=== PATIENT | male | born 1940 | race Caucasian/White ===

== ENCOUNTER 2022-10-09 10:36 | Emergency (ER) | payer MEDICARE, SELFPAY ==
[2022-10-09 11:03] VITALS: BP 124/79; PULSE 50; RESP 20; TEMP 36.4; O2SAT 98; BMI 26.1
--- NOTE | 2022-10-09 14:00 | ED.GENADULT ---
HPI - General Adult General Chief complaint: Abdominal Pain Stated complaint: Left side pain Time Seen by Provider: 10/09/22 13:48 History of Present Illness HPI narrative: This 82-year-old male comes in reporting a brief episode of left chest discomfort that occurred about an hour prior to arrival. He was at an exercise class which she typically goes to every day. Toward the end of this event wild doing something that was not very strenuous he began to have a sharp pain in his left chest. This lasted for a minute or 2 and then resolved. He then felt some mild discomfort in his upper abdomen. He did not have any nausea, vomiting, lightheadedness, shortness of breath, or diaphoresis. The pain was very brief lasting just a few minutes. He states that he has good exercise tolerance without any symptoms. Related Data Home Medications Medication Instructions Recorded Confirmed brimonidine 0.2 % eye drops drp 10/09/22 hydrochlorothiazide 25 mg tablet mg 10/09/22 latanoprost 0.005 % eye drops drp 10/09/22 lisinopril 20 mg tablet mg 10/09/22 omeprazole 20 mg capsule,delayed mg 10/09/22 release timolol maleate 0.5 % eye drops drp 10/09/22 Allergies Allergy/AdvReac Type Severity Reaction Status Date / Time No Known Drug Allergies Allergy Verified 10/09/22 11:10 Review of Systems Status of ROS: Reports: 10 or more systems reviewed and unremarkable except as noted in History and below Narrative: Constitutional: No fevers, no weight gain or loss. Eyes: No discharge. No vision changes. HENT: No congestion, no sore throat, no ear pain. Cardiovascular: No palpitations. Chest pain as described above. Respiratory: No shortness of breath, no wheezes, no cough. Gastrointestinal: No abdominal pain, no vomiting, no diarrhea. Genitourinary: No dysuria, no hematuria. Musculoskeletal: Normal range of motion. Skin: No rashes, no pruritis. Neurological: No dizziness, weakness, sensory change, speech change. Endo/Heme/Allergies: No bruising or bleeding. No polydipsia. Pysch: no suicidality, no anxiety, no insomnia. All other systems reviewed and are negative. PFSH PFS Social History Smoking Status: Never smoker How often do you have a drink containing alcohol: monthly or less AUDIT-C Alcohol total score: 1 Non-prescribed substance use: denies use Exam Narrative: Exam Narrative: Constitutional: Well-developed, well-nourished, no acute distress. HEENT: Normocephalic, atraumatic. Neck: Normal range of motion. Nontender. Supple. Heart: Regular. No murmurs. Normal rate. Intact distal pulses. Lungs: Clear to auscultation. No chest discomfort. No wheezes, rhonchi, or rales. Abdomen: Normal bowel sounds. Nontender. No rebound tenderness. Genitalia: Deferred. Back: No midline tenderness. Normal range of motion. Extremities: Normal range of motion. No injury. Skin: Intact. No rash. Warm. No erythema or pallor. Neurologic: No altered sensation. No weakness. Alert and oriented. Psychiatric: No suicidality. No anxiety or depression. No insomnia. Nursing notes and vitals signs are reviewed. Const: Vital Signs, click to edit/add: Vital Signs - 24 hr 10/09/22 11:03 Temperature 97.5 F L Pulse Rate [Pulse Oximeter] 50 L Respiratory Rate 20 Blood Pressure [Ri ght Upper Arm] 124/79 Pulse Oximetry 98 Oxygen Delivery Me thod Room Air Course Vital Signs Vital signs: Initial Vital Signs Temperature 97.5 F L 10/09/22 11:03 Temperature Source Temporal Artery Scan 10/09/22 11:03 Pulse Rate 50 L 10/09/22 11:03 Respiratory Rate 20 10/09/22 11:03 Blood Pressure 124/79 10/09/22 11:03 Blood Pressure Mean 94 10/09/22 11:03 Blood Pressure Position Sitting 10/09/22 11:03 Pulse Oximetry 98 10/09/22 11:03 Oxygen Delivery Method 10/09/22 11:03 Vital Signs Temperature 97.5 F L 10/09/22 11:03 Pulse Rate 50 L 10/09/22 11:03 Respiratory Rate 20 10/09/22 11:03 Blood Pressure 124/79 10/09/22 11:03 Pulse Oximetry 98 10/09/22 11:03 Oxygen Delivery Method 10/09/22 11:03 Temperature 97.5 F L 10/09/22 11:03 Pulse Rate 50 L 10/09/22 11:03 Respiratory Rate 20 10/09/22 11:03 Blood Pressure 124/79 10/09/22 11:03 Pulse Oximetry 98 10/09/22 11:03 Oxygen Delivery Method 10/09/22 11:03 Medical Decision Making MDM Narrative Medical decision making narrative: This patient comes in reporting a brief episode of chest discomfort lasting about a minute or 2. He did not have any other symptoms accompanying this event. He has good exercise tolerance. EKG shows a sinus bradycardia with occasional PVCs. A repeat EKG shows similar findings. His lab results returned with normal findings also. His troponin is in normal range. This patient's symptoms are not suspicious for angina or pulmonary cause. He had symptoms lasting very briefly and does have good exercise tolerance. I did describe signs and symptoms that would indicate need for return and re-evaluation. He did have a normal stress test a couple years ago. I stated that this is a follow-up test that he could consider especially if symptoms are recurrent. Lab Data Labs: Lab Results 10/09/22 10/09/22 10/09/22 Range/Units 14:33 14:33 14:33 WBC 6.57 (4.50-11.00) K/uL RBC 4.88 (4.30-5.90) m/uL Hgb 13.2 L (13.5-17.5) gm/dL Hct 41.2 (37.0-53.0) % MCV 84 (80-100) fL MCH 27 (26-34) pg MCHC 32 (32-36) gm/dL RDW Coeff of Edna 17.3 H (11.5-15.5) % Plt Count 300 (140-440) K/uL Neut % (Auto) 57.7 (42.0-72.0) % Lymph % (Auto) 26.8 (20-44) % [place] % (Auto) 10.8 (0.0-11.0) % Eos % (Auto) 3.7 (0.0-7.0) % Baso % (Auto) 0.8 (0.0-3.0) % Neut # (Auto) 3.80 (1.7-7.0) K/uL Lymph # (Auto) 1.76 (0.90-2.90) K/uL [place] # (Auto) 0.70 (0.00-0.90) K/UL Eos # (Auto) 0.24 (0.00-0.50) K/uL Baso # (Auto) 0.05 (0.00-0.30) K/uL Abs Immat Gran (auto) 0.01 (0.00-0.30) K/uL Imm/Tot Granulo (auto) 0.2 % Sodium 141 (135-149) mmol/L Potassium 4.5 (3.6-5.1) mmol/L Chloride 107 (96-114) mmol/L Carbon Dioxide 28 (20-32) mmol/L BUN 23 (7-30) mg/dL Creatinine 0.9 (0.5-1.5) mg/dL Estimated Creat Clear 60.83 Estimated GFR 86 ml/min Glucose 86 (60-115) mg/dL Calcium 9.0 (8.4-10.6) mg/dL POC Troponin I 0.00 L (0.01-0.04) ng/ml ECG Data Attestation: I personally reviewed and interpreted this ECG as follows: Interpretation: Left bundle branch block which is not new. Sinus bradycardia with a rate of 51 beats per minute. Discharge Plan Discharge Clinical Impression: Atypical chest pain Patient Disposition: Home, Self-Care Condition: Improved Additional Instructions: Continue current plans. Follow up with MD or return if symptoms are recurrent or worsening. Prescriptions: No Action latanoprost 0.005 % drops Label Comments: INSTILL ONE DROP INTO EACH EYE ONCE DAILY AFTER SUPPER lisinopril 20 mg tablet Label Comments: TAKE 1 TABLET BY MOUTH EVERY DAY brimonidine 0.2 % drops Label Comments: INSTILL 1 DROP IN BOTH EYES DAILY omeprazole 20 mg capsule,delayed release(DR/EC) Label Comments: TAKE 1 CAPSULE BY MOUTH EVERY MORNING BEFORE BREAKFAST hydrochlorothiazide 25 mg tablet Label Comments: TAKE 1 TABLET BY MOUTH EVERY DAY timolol maleate 0.5 % drops Label Comments: INSTILL 1 DROP IN BOTH EYES DAILY Follow Up/Referrals: Richmond Anthony MD [Primary Care Provider] - Stand Alone Forms: [employer] Info Instructions
[2022-10-09 14:42] LABS: Basophils Absolute Auto 0.05 K/uL (0.00-0.30); Basophils Percent Auto 0.8 % (0.0-3.0); Eosinophils Absolute Auto 0.24 K/uL (0.00-0.50); Eosinophils Percent Auto 3.7 % (0.0-7.0); Hematocrit 41.2 % (37.0-53.0); Hemoglobin* 13.2 gm/dL (13.5-17.5); Immature Granulocytes Abs Auto 0.01 K/uL (0.00-0.30); Immature Granulocytes Pct Auto 0.2 %; Lymphocytes Absolute Auto 1.76 K/uL (0.90-2.90); Lymphocytes Percent Auto 26.8 % (20-44); Mean Corpuscular HGB Conc 32 gm/dL (32-36); Mean Corpuscular Hemoglobin 27 pg (26-34); Mean Corpuscular Volume 84 fL (80-100); Monocytes Percent Auto 10.8 % (0.0-11.0); Neutrophils Percent Auto 57.7 % (42.0-72.0); Platelet Count* 300 K/uL (140-440); RDW Coefficient of Variation % 17.3 % (11.5-15.5); Red Blood Count 4.88 m/uL (4.30-5.90); White Blood Count* 6.57 K/uL (4.50-11.00)
[2022-10-09 14:45] LABS: Slide Review Reflex No
[2022-10-09 15:00] LABS: Chloride* 107 mmol/L (96-114); Potassium* 4.5 mmol/L (3.6-5.1); Sodium* 141 mmol/L (135-149)
[2022-10-09 15:03] LABS: Blood Urea Nitrogen* 23 mg/dL (7-30); Carbon Dioxide* 28 mmol/L (20-32); Creatinine* 0.9 mg/dL (0.5-1.5); Est. Creatinine Clearance* 60.83; Estimated Glomerular Filt Rate 86 ml/min; Glucose* 86 mg/dL (60-115)
[2022-10-09 15:44] VITALS: BP 148/96; PULSE 55; RESP 18; O2SAT 98
== END 2022-10-09 15:43 | disposition home or self-care (01) ==
PROVIDERS: Emergency Provider Emergency Medicine Emergency Medical Services; PCP Family Medicine
DX: R10.9 Unspecified abdominal pain (principal)
CPT/HCPCS: 36415; 80048; 84484; 85025; 93005; 99284

== ENCOUNTER 2023-08-11 23:22 | Outpatient (CLI) | payer MEDICARE, SELFPAY | END 2023-08-11 23:23 | disposition home or self-care (01) | LOC: AMB 09-10 02:17 | PROVIDERS: PCP Family Medicine; Visit Provider Family Medicine | DX: R53.1 Weakness (principal) | CPT/HCPCS: A0425; A0427 ==

== ENCOUNTER 2023-08-11 23:52 | Inpatient (IN) | payer MEDICARE, SELFPAY ==
[2023-08-12] VITALS (11 sets, daily range): BP systolic 89–149; BP diastolic 62–114; PULSE 63–128; RESP 14–18; TEMP 36.1–38.6; O2SAT 90–97; BMI 25.8; BMI 26.4
--- NOTE | 2023-08-12 00:09 | ED_ITS ---
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 as needed. <Tahira Harper MD - Last Filed: 08/12/23 05:04> Prescriptions: New ciprofloxacin HCl [Cipro] 500 mg tablet 500 mg PO BID Qty: 10 0RF No Action latanoprost 0.005 % drops Patient Comments: INSTILL ONE DROP INTO EACH EYE ONCE DAILY AFTER SUPPER lisinopril 20 mg tablet Patient Comments: TAKE 1 TABLET BY MOUTH EVERY DAY brimonidine 0.2 % drops Patient Comments: INSTILL 1 DROP IN BOTH EYES DAILY omeprazole 20 mg capsule,delayed release(DR/EC) Patient Comments: TAKE 1 CAPSULE BY MOUTH EVERY MORNING BEFORE BREAKFAST hydrochlorothiazide 25 mg tablet Patient Comments: TAKE 1 TABLET BY MOUTH EVERY DAY timolol maleate 0.5 % drops Patient Comments: INSTILL 1 DROP IN BOTH EYES DAILY <Tahira Harper MD - Last Filed: 08/12/23 05:04> Follow Up/Referrals: Richmond Anthony MD [Primary Care Provider] - <Tahira Harper MD - Last Filed: 08/12/23 05:04>
--- NOTE | 2023-08-12 00:26 | CRLHL7_ITS ---
For Patients: As a result of the Cures Act, medical imaging exams and procedure reports are released immediately into your electronic medical record. You may view this report before your referring provider. If you have questions, please contact your health care provider. INDICATION: Chills, fall, chest injury TECHNIQUE: Chest radiograph 1 view COMPARISON: None FINDINGS: Mediastinum: A moderate sliding type gastric hiatal hernia (type IV) is present. The cardiac silhouette is mildly enlarged but may be accentuated by the portable technique. Lung: A cluster of high density nodules are seen in the left lung base. This may be due to previous aspiration of barium. No sign of pleural effusion seen. No pneumothorax is identified. Bone and Soft tissue: There is a fracture of the left clavicle present with the distal fragment displaced inferiorly by 2 cm. IMPRESSIONS: 1. The cardiac silhouette is mildly enlarged but may be accentuated by the portable technique. 2. There is a fracture of the left clavicle present with the distal fragment displaced inferiorly by 2 cm. Dictated by Hardik Lake MD @ 08/12/2023 1:51:31 AM Dictated by: Hardik Lake MD @ 08/12/2023 01:51:36 (Electronically Signed)
--- NOTE | 2023-08-12 00:26 | CRLHL7_ITS ---
For Patients: As a result of the Century Cures Act, medical imaging exams and procedure reports are released immediately into your electronic medical record. You may view this report before your referring provider. If you have questions, please contact your health care provider. INDICATION: Fall, cervical spine injury TECHNIQUE: CT cervical spine without i.v. contrast. Coronal and sagittal reformats were obtained. COMPARISON: None FINDINGS: Alignment: Unremarkable. Bone: Mild chronic appearing compression deformity is present along the superior endplate of C7. Disc: Incomplete segmentation the C2-3 level is noted. Severe degenerative disc narrowing is present at C5-6. Scattered facet osteoarthritis is noted bilaterally. Soft tissue: There is a ring calcified structure in the left thyroid lobe measuring 1.4 cm. The visualized lung apices and mediastinum are unremarkable. Bilateral calcified carotid plaques are noted. IMPRESSIONS: 1. Mild chronic appearing compression deformity is present along the superior endplate of C7. Correlation with physical exam for focal tenderness in this region is recommended to exclude any acute injury component. 2. There is a ring calcified structure in the left thyroid lobe measuring 1.4 cm. Further assessment with outpatient thyroid ultrasound is recommended. Dictated by Hardik Lake MD @ 08/12/2023 1:54:22 AM Please note that all CT scans at this facility use dose modulation, iterative reconstruction, and/or weight-based dosing when appropriate to reduce radiation dose to as low as reasonably achievable. Dictated by: Hardik Lake MD @ 08/12/2023 01:54:27 (Electronically Signed)
--- NOTE | 2023-08-12 00:26 | CRLHL7_ITS ---
For Patients: As a result of the Cures Act, medical imaging exams and procedure reports are released immediately into your electronic medical record. You may view this report before your referring provider. If you have questions, please contact your health care provider. INDICATION: Fall, impact left eye area, head injury TECHNIQUE: CT Head without i.v. contrast. Coronal and sagittal reformats were obtained. COMPARISON: 07/19/2011 FINDINGS: CSF space: Unremarkable for age. Brain: No evidence of mass, acute infarction or hemorrhage is seen. No mass-effect or midline shift is seen. Mild diffuse cortical atrophy is noted. The brain parenchyma is otherwise normal in appearance with preservation of the mcdaniel-white matter junction. Calvarium: The visualized paranasal sinuses are well aerated. The mastoid air cells are clear. Mild left preseptal soft tissue swelling is noted. The calvarium is unremarkable in appearance with no fractures identified. IMPRESSION: 1. No evidence of acute infarction, intracranial hemorrhage, or mass-effect seen. Dictated by Hardik Lake MD @ 08/12/2023 1:59:05 AM Please note that all CT scans at this facility use dose modulation, iterative reconstruction, and/or weight-based dosing when appropriate to reduce radiation dose to as low as reasonably achievable. Dictated by: Hardik Lake MD @ 08/12/2023 01:59:09 (Electronically Signed)
--- NOTE | 2023-08-12 00:39 | CRLHL7_ITS ---
For Patients: As a result of the Cures Act, medical imaging exams and procedure reports are released immediately into your electronic medical record. You may view this report before your referring provider. If you have questions, please contact your health care provider. INDICATION: Left eye injury from fall. TECHNIQUE: CT Orbit without i.v. contrast. Coronal and sagittal reformats were obtained. COMPARISON: None FINDINGS: Bone: No acute fractures or aggressive bone lesions are identified. Left partial mastoidectomy is noted. Joint: The temporomandibular joints are unremarkable in appearance. Sinus: The sinuses are well-aerated with no significant mucosal thickening or retained secretions seen. The ostiomeatal units are patent. The nasal turbinates are normal. The nasal septum is midline and intact. Orbit: The globes and optic nerves are grossly unremarkable. No mass or inflammatory changes are seen in the orbits. Soft tissue: Unremarkable. IMPRESSION: 1. No acute osseous injuries or abnormalities are seen. Dictated by Hardik Lake MD @ 08/12/2023 1:57:05 AM Please note that all CT scans at this facility use dose modulation, iterative reconstruction, and/or weight-based dosing when appropriate to reduce radiation dose to as low as reasonably achievable. Dictated by: Hardik Lake MD @ 08/12/2023 01:57:09 (Electronically Signed)
[2023-08-12 00:43] LABS: Basophils Absolute Auto 0.05 K/uL (0.00-0.30); Basophils Percent Auto 0.6 % (0.0-3.0); Eosinophils Absolute Auto 0.04 K/uL (0.00-0.50); Eosinophils Percent Auto 0.5 % (0.0-7.0); Hematocrit 43.8 % (37.0-53.0); Hemoglobin* 14.6 gm/dL (13.5-17.5); Immature Granulocytes Abs Auto 0.02 K/uL (0.00-0.30); Immature Granulocytes Pct Auto 0.2 %; Lymphocytes Percent Auto 9.3 % (20-44); Mean Corpuscular HGB Conc 33 gm/dL (32-36); Mean Corpuscular Hemoglobin 30 pg (26-34); Mean Corpuscular Volume 89 fL (80-100); Neutrophils Percent Auto 79.4 % (42.0-72.0); Platelet Count* 193 K/uL (140-440); RDW Coefficient of Variation % 14.8 % (11.5-15.5); Red Blood Count 4.91 m/uL (4.30-5.90); White Blood Count* 8.38 K/uL (4.50-11.00)
[2023-08-12 00:44] LABS: Lactate* 1.5 mmol/L (0.5-1.9)
[2023-08-12 00:45] LABS: Slide Review Reflex Yes
[2023-08-12 00:49] LABS: Appearance Urine Cloudy (Clear); Bilirubin Urine Negative (Negative); Blood Urine 3+ (Negative); Color Urine Yellow (Yellow); Glucose Urine Negative (Negative); Ketones Urine Trace (Negative); Leukocyte Esterase Urine 1+ (Negative); Nitrite Urine Positive (Negative); Protein Urine 2+ (Negative); pH Urine 6.5 (5.0-8.5)
[2023-08-12] MEDS: LIDOCAINE/EPINEP/TETRACAINE 3 ML GEL..ML. TOPICAL (01:05)
[2023-08-12] MEDS: 0.9 % SODIUM CHLORIDE 1000 ml 1,000 ML IV (01:05)
[2023-08-12 01:13] LABS: Amorphous Sediment Urine Few; Bacteria Urine Moderate; Squamous Epithelial Cell Urine Few (None-Few)
[2023-08-12 01:15] LABS: PCR FLU A Negative PCR FLU A (Negative); PCR FLU B Negative PCR FLU B (Negative)
[2023-08-12 01:15] LABS: Albumin* 3.8 g/dL (3.3-5.0); Chloride* 103 mmol/L (96-114); Potassium* 3.3 mmol/L (3.6-5.1); Sodium* 136 mmol/L (135-149)
[2023-08-12] MEDS: cefTRIAXone 1 GM in 0.9 % SODIUM CHLORIDE Mini-bag 100 ML IVPB ×2 (01:15→15:53)
[2023-08-12 01:17] LABS: Slide Review Acceptable Review (Acceptable)
[2023-08-12 01:17] LABS: SARS PCR* Negative SARS-CoV-2 (Negative)
[2023-08-12 01:18] LABS: Creatinine* 1.2 mg/dL (0.5-1.5); Est. Creatinine Clearance* 49.85; Estimated Glomerular Filt Rate 61 ml/min
[2023-08-12 01:19] LABS: Alanine Aminotransferase* 37 U/L (4-50); Alkaline Phosphatase* 121 U/L (40-150); Anion Gap 9 mEq/L (7-15); Aspartate Amino Transferase* 37 U/L (12-35); Bilirubin Total* 0.9 mg/dL (0.1-1.5); Blood Urea Nitrogen* 32 mg/dL (7-30); Calcium* 8.2 mg/dL (8.4-10.6); Carbon Dioxide* 24 mmol/L (20-32); Glucose* 122 mg/dL (60-115); Lipase* 79 U/L (23-300); Total Protein* 7.3 g/dL (6.0-8.3)
[2023-08-12 01:22] LABS: C Reactive Protein* 6.9 mg/dL (0.5-1.0)
--- NOTE | 2023-08-12 05:13 | CRLHL7_ITS ---
For Patients: As a result of the Century Cures Act, medical imaging exams and procedure reports are released immediately into your electronic medical record. You may view this report before your referring provider. If you have questions, please contact your health care provider. Indication: C7 abnormality on CT after fall Technique: Multiplanar, multisequence MRI of the cervical spine obtained without contrast. Comparison: CT cervical spine 08/12/2023 Findings: Exaggerated cervical lordosis. 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 Grade 1 retrolisthesis at C3-4, C4-5 and C5-6. Chronic C7 superior endplate compression deformity. Chronic anterior wedge configuration of T2. No acute osseus abnormality. Unremarkable bone marrow signal. Included posterior fossa structures are unremarkable. The spinal cord appears normal in course, caliber, and intrinsic signal. No suspicious findings in the prevertebral or paraspinal soft tissues. C2-C3: Congenital segmentation anomaly. No significant neural foraminal or spinal canal stenosis. C3-C4: Retrolisthesis, posterior disc-osteophyte complex. Mild-moderate bilateral neuroforaminal narrowing. Moderate spinal canal stenosis. C4-C5: Posterior disc-osteophyte complex, uncovertebral and facet arthropathy. Mild-moderate bilateral neuroforaminal narrowing. Moderate spinal canal stenosis. C5-C6: Posterior disc-osteophyte complex, uncovertebral arthropathy. Moderate bilateral neural foraminal stenosis. Moderate spinal canal stenosis. C6-C7: Left asymmetric uncovertebral arthropathy. Mild right, moderate left neural foraminal stenosis. No spinal canal stenosis. C7-T1: Left subarticular/foraminal disc-osteophyte complex. No right, moderately severe left neural foraminal stenosis with potential left C8 nerve root impingement. Mild spinal canal narrowing. Impression: 1. No evidence of acute osseous abnormality. 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 2. Chronic C7 superior endplate compression deformity. Chronic anterior wedge configuration of T2. 3. Cervical spondylosis, with exaggerated cervical lordosis, multilevel degenerative spondylolisthesis 4. Moderate spinal canal stenosis at C3-4, C4-5, and C5-6. 5. Moderately-severe left neural foraminal stenosis at C7-T1, with potential left C8 nerve root impingement. 6. Mild to moderate multilevel neural foraminal stenosis elsewhere as detailed. Dictated by Aide Ballard MD @ 08/12/2023 1:35:06 PM (Electronically Signed)
[2023-08-12] MEDS: ACETAMINOPHEN 325 MG TABLET 650 MG PO (07:55)
[2023-08-12] MEDS: 0.9 % SODIUM CHLORIDE 500 ML 500 ML IV (07:55)
--- NOTE | 2023-08-12 09:53 | ED.NURSE ---
Patient transferred to m/s room 256. Ate all breakfast. Report given to Beba. All belongings sent.
[2023-08-12] MEDS: 0.9 % SODIUM CH + KCL 20 mEq/L 1,000 ML 500 ML IV (12:01)
[2023-08-12] MEDS: SODIUM CHLORIDE 0.9 % (FLUSH) 10 ML SYRINGE 5 ML IVF (12:04)
[2023-08-12 12:45] LABS: Thyroid Stimulating Hormone* 0.433 uIU/mL (0.270-4.20)
[2023-08-12 13:03] LABS: Vitamin B12* 281 pg/mL (243-894)
--- NOTE | 2023-08-12 14:51 | PC.NURSE ---
End of shift nursing note, care from admission from ED at 0945 to 1500: Pt alert and oriented, forgetfulness noted, pleasant and cooperative. Vitals stable, on RA. Initial BP on admit soft at 89/92, pt asymptomatic. BP improved to 108/63, HR 60-80bpm. Pt denies pain. IV to L forearm infiltrated during ordered bolus, new IV started to R wrist this afternoon, bolus completed, site flushed and saline locked this afternoon. Pt up w/ Ax1 to bathroom, improved from ED where pt was more weak per report. Tolerating regular diet. Niece then back at bedside. Black eye to L eye from fall prior to admission and sutures intact to L eyebrow. Pt had MRI this AM after admission. Plan for therapies and IV abx for UTI, pt aware. Bed alarm on, call light within reach.
[2023-08-12] MEDS: POTASSIUM BICARB 25 MEQ EFFERVESCENT TAB PO (17:03)
[2023-08-12] MEDS: LACTATED RINGERS 1000 ML 1,000 ML 75 ML IV (17:04)
--- NOTE | 2023-08-12 17:26 | P.IMHP_ITS ---
Hospitalist- H&P: HPI History of Present Illness Date Seen: 08/12/23 Chief complaint: fall Narrative: Helder Colon is a 83 year old male presents emergency room for evaluation of illness and fall. First became ill about 2 days ago with weakness, chills and fever. His balance seemed to get worse he had urinary urgency and frequency. He had loss of appetite. During the night last night he got up to go to the bathroom and fell forward hitting his left eyebrow on a bedside table. He did not faint or lose consciousness. He reports he just fell. He has had some problems with balance. This is been a.m. mild and somewhat progressive problem over the past months. He particularly has trouble walking on uneven ground. He is diagnosed himself with neuropathy. He does not have numbness in his feet but just reports that his feet sometimes do not feel right and he has poor balance. He does not use assistive device to walk. He also has poor vision due to glaucoma and macular degeneration and cataracts. He gets injections in his eyes and takes eyedrops. Is a remote history of prostate cancer and prostatectomy. He tells me there is no longer any surveillance for prostate cancer. He does have some ongoing urinary symptoms following his prostatectomy Review of Systems Narrative: Patient reports doing well other than the issues noted above. [facility] Medical History (Updated 08/12/23 @ 17:43 by Pito Jesus MD) Dehydration ?E86.0 - Dehydration (ICD-10) Poor balance ?R26.89 - Other abnormalities of gait and mobility (ICD-10) Closed head injury ?S09.90XA - Unspecified injury of head, initial encounter (ICD-10) Left bundle branch block ?I44.7 - Left bundle-branch block, unspecified (ICD-10) Conductive hearing loss ?H90.2 - Conductive hearing loss, unspecified (ICD-10) Cataracts, bilateral ?H26.9 - Unspecified cataract (ICD-10) Glaucoma ?H40.9 - Unspecified glaucoma (ICD-10) Macular degeneration ?H35.30 - Unspecified macular degeneration (ICD-10) Hypertension ?I10 - Essential (primary) hypertension (ICD-10) Prostate cancer ?C61 - Malignant neoplasm of prostate (ICD-10) Surgical History (Updated 08/12/23 @ 17:35 by Pito Jesus MD) History of tonsillectomy ?Z90.89 - Acquired absence of other organs (ICD-10) H/O mastoidectomy ?Z90.89 - Acquired absence of other organs (ICD-10) Status post removal of Zenker's diverticulum ?Z98.890 - Other specified postprocedural states (ICD-10) ?Z87.19 - Personal history of other diseases of the digestive system (ICD-10) History of esophagogastroduodenoscopy (EGD) ?Z98.890 - Other specified postprocedural states (ICD-10) History of colonoscopy ?Z98.890 - Other specified postprocedural states (ICD-10) H/O prostatectomy ?Z90.79 - Acquired absence of other genital organ(s) (ICD-10) Family History (Updated 08/12/23 @ 17:36 by Pito Jesus MD) Brother Prostate cancer Father Prostate cancer Mother Diabetes Social History (Updated 08/12/23 @ 17:37 by Pito Jesus MD) Narrative: Patient lives with his in [place]. His live independently. 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 He does not smoke. He rarely drinks alcohol. Code status is DNR. He does not use a walker or cane with ambulation. What is your current living situation?: I presently have a place to live Problems where you live: no known problems Problems where you live details: denies problems In the past 12 months, utilities in danger of being shut off: no In past 12 months, lack of transportation kept you from medical appts, meetings, work, or getting things needed for daily living: no In the past 12 mos, have been you worried that your food would run out before you had money to buy more?: never true In the past 12 mos, the food you bought just didn't last and you didn't have money to buy more?: never true Highest level of school completed/degree received: Master's degree Smoking Status: Never smoker How often do you have a drink containing alcohol: monthly or less Alcohol type details: one glass of wine every 5 months or so, very rarely socially AUDIT-C Alcohol total score: 1 Non-prescribed substance use: denies use Caffeine: Yes (coca cola) How often does anyone, including family, friends and others, physically hurt you : never How often does anyone, including family, friends and others, insult or talk down to you: never How often does anyone, including family, friends and others, threaten you with harm: never How often does anyone, including family, friends and others, scream or curse at you: never service: No Meds Home Medications and Allergies Home Medications Medication Instructions Recorded Confirmed Type brimonidine 0.2 % eye drops 1 drp ophthalmic (eye) DAILY 10/09/22 08/12/23 History hydrochlorothiazide 25 mg tablet 25 mg PO DAILY 10/09/22 08/12/23 History latanoprost 0.005 % eye drops 1 drp ophthalmic (eye) QPM 10/09/22 08/12/23 History lisinopril 20 mg tablet 20 mg PO DAILY 10/09/22 08/12/23 History omeprazole 20 mg capsule,delayed 20 mg PO DAILY 10/09/22 08/12/23 History release timolol maleate 0.5 % eye drops 1 drp ophthalmic (eye) DAILY 10/09/22 08/12/23 History Allergies Allergy/AdvReac Type Severity Reaction Status Date / Time No Known Drug Allergies Allergy Verified 10/09/22 11:10 Exam Narrative: Exam Narrative: He is alert and appears in no distress. He gives his own history with fairly good recall of details. Head is notable for bruising around the left eye with a laceration that is repaired on his lateral left eyebrow. No other head trauma is noted. Eyes are normal. Extraocular movements are full. Visual ferrara are intact. No facial asymmetry. Oropharynx is normal. Neck is supple without mass or adenopathy. No tenderness including no tenderness over the posterior cervical spine. Respirations are clear to auscultation. Cardiovascular: S1, S2, regular rate and rhythm. No murmur gallop or rub. Abdomen: Bowel sounds active. Abdomen is soft without tenderness or mass. No other obvious trauma is noted. 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 He is mildly weak with hip flexion on the right compared to the left. Knee flexion and extension and ankle dorsiflexion plantar flexion bilaterally are 5/5. Qrftfx-[id number]-[id number] and heel-russell are normal. Skin is without rash. Const: Vital Signs, click to edit/add: Vital Signs - 24 hr 08/12/23 00:00 08/12/23 02:12 08/12/23 04:46 Temperature 101.5 F H 99.6 F Pulse Rate Pulse Rate [Pulse Oximeter] 100 108 H 108 H Respiratory Rate 18 16 18 Blood Pressure [Ri ght Arm] Blood Pressure [Ri ght Upper Arm] 145/97 H 144/114 H 149/103 H Pulse Oximetry 91 92 94 Oxygen Delivery Me thod Room Air Room Air Room Air 08/12/23 07:46 08/12/23 09:55 08/12/23 10:03 Temperature 99.7 F H 97.2 F L Pulse Rate Pulse Rate [Pulse Oximeter] 128 H 82 Respiratory Rate 14 18 16 Blood Pressure [Ri ght Arm] 89/62 L Blood Pressure [Ri ght Upper Arm] 113/94 H Pulse Oximetry 90 95 95 Oxygen Delivery Me thod Room Air Room Air Room Air 08/12/23 11:30 08/12/23 14:30 Temperature 97.0 F L Pulse Rate 100 Pulse Rate [Pulse Oximeter] 73 Respiratory Rate 16 Blood Pressure [Ri ght Arm] 108/73 Blood Pressure [Ri ght Upper Arm] Pulse Oximetry 95 Oxygen Delivery Me thod Room Air Documenting provider has reviewed patient's vital signs: yes Hospitalist - H&P: Result Labs Labs: Short CBC 08/12/23 Range/Units 00:00 WBC 8.38 (4.50-11.00) K/uL Hgb 14.6 (13.5-17.5) gm/dL Hct 43.8 (37.0-53.0) % Plt Count 193 (140-440) K/uL BMP 08/12/23 00:55 Sodium 136 Potassium 3.3 L Chloride 103 Carbon Dioxide 24 BUN 32 H Creatinine 1.2 Glucose 122 H Calcium 8.2 L Liver Function 08/12/23 Range/Units 00:55 Total Bilirubin 0.9 (0.1-1.5) mg/dL AST 37 H (12-35) U/L ALT 37 (4-50) U/L Alkaline Phosphatase 121 (40-150) U/L Albumin 3.8 (3.3-5.0) g/dL Urine 08/12/23 Range/Units 00:30 Urine Color Yellow (Yellow) Urine Appearance Cloudy A (Clear) Urine pH 6.5 (5.0-8.5) Ur Specific [place] 1.020 (1.000-1.030) Urine Protein 2+ A (Negative) Urine Glucose (UA) Negative (Negative) Assessment and Plan Assessment and plan (1) Acute UTI: Problem comment: Clinically appears to have a urinary tract infection of the cause of his systemic illness with fever, chills, weakness, loss of appetite, nausea. Initiate ceftriaxone pending cultures. Status: Acute (2) Acute delirium: Problem comment: Acute confusion due to concussion or acute illness. Monitor Status: Acute (3) Thyroid lesion: Problem comment: Outpatient thyroid ultrasound Status: Acute (4) Eyebrow laceration: Problem comment: Healing well. Sutures out in a week Status: Acute (5) Closed head injury: Problem comment: No intracranial bleed. Confusion may be due to concussion or acute illness Status: Acute (6) Poor balance: Problem comment: PT to assess and make recommendations Status: Acute (7) Dehydration: Problem comment: Start IV fluids pending better p.o. intake Status: Acute Plan Admit to the hospital for further evaluation treatment with IV antibiotics pending cultures, IV fluids, therapy to assess mobility and balance. Total time spent today is 75 minutes, 50 minutes in coordination of care discussing with patient, and other providers ongoing evaluation management of acute illness, falls, confusion and injury.
[2023-08-12] MEDS: LATANOPROST 0.005% OPHTH 1 DROP EYE-BOTH (18:01)
--- NOTE | 2023-08-12 18:33 | PC.NURSE ---
Pt mildly confused, reoriented with nsg interventions. IV Rocephin infused for tx of UTI. Frances and son Carmine visited with Hayden this evening. New orders for LR @ 75cc/hour and one dose of oral effervescent potassium provided for K+ level of 3.3. Report will be provided to oncoming shift RN. Bed/Chair alarm engaged and jelena hose applied.
[2023-08-12] MEDS: ENOXAPARIN 40 MG/0.4 ML INJ SUBCUT (21:19)
[2023-08-13 00:43] VITALS: BP 106/59; PULSE 68; RESP 18; TEMP 36.6; O2SAT 97
[2023-08-13 04:45] VITALS: BP 138/91; PULSE 74; RESP 20; TEMP 36.6; O2SAT 96
[2023-08-13] MEDS: LACTATED RINGERS 1000 ML 1,000 ML 75 ML IV (06:18)
[2023-08-13] MEDS: OMEPRAZOLE 20 MG CAPSULE DR PO (06:18)
--- NOTE | 2023-08-13 06:59 | PC.NURSE ---
SHIFT NOTE : Pt pleasant and cooperative, A&O with some forgetfulness noted, states I feel much better today. Up SBA to the BR, tolerated well. Denies pain, SOB, CP, and N/V. VSS on RA.
[2023-08-13 07:00] VITALS: BP 133/87; PULSE 66; RESP 18; TEMP 36.4; O2SAT 95
[2023-08-13 07:43] LABS: Chloride* 107 mmol/L (96-114); Potassium* 3.5 mmol/L (3.6-5.1); Sodium* 140 mmol/L (135-149)
[2023-08-13 07:45] LABS: Est. Creatinine Clearance* 59.82; Estimated Glomerular Filt Rate 76 ml/min
[2023-08-13 07:46] LABS: Anion Gap 7 mEq/L (7-15); Blood Urea Nitrogen* 21 mg/dL (7-30); Carbon Dioxide* 26 mmol/L (20-32); Glucose* 83 mg/dL (60-115)
[2023-08-13 07:47] LABS: Calcium* 7.9 mg/dL (8.4-10.6)
[2023-08-13 07:49] LABS: C Reactive Protein* 7.9 mg/dL (0.5-1.0)
[2023-08-13] MEDS: timoloL maleate 0.5 % 1 DROP EYE-BOTH (08:54)
[2023-08-13] MEDS: BRIMONIDINE TARTRATE 0.2% OPHTH 1 DROP EYE-BOTH (08:54)
[2023-08-13] MEDS: cephALEXin 500 MG CAPSULE PO (10:46)
--- NOTE | 2023-08-13 12:38 | PM.DS1 ---
DS: Providers Provider Date Seen: 08/13/23 Date of admission: 08/12/23 09:51 Primary care physician: Richmond Anthony MD Admitting Clinician: Heide Rivas MD Attending Physician on discharge: Pito Jesus MD Date of Discharge: 08/13/23 DS: Diagnosis Discharge Diagnosis (1) Acute UTI: Status: Acute Problem details: Clinically appears to have a urinary tract infection of the cause of his systemic illness with fever, chills, weakness, loss of appetite, nausea. Culture growing E coli resistant to ampicillin but susceptible to ceftriaxone and cephalexin. Will treat with cephalexin 500 t.i.d. for 1 week (2) Acute delirium: Status: Acute Problem details: Acute confusion due to concussion or acute illness. Acute confusion improved. This may be a marker of cognitive impairment. Outpatient OT evaluation (3) Poor balance: Status: Acute Problem details: PT recommends a cane. I recommend a four-wheel walker when he is on uneven ground. Outpatient PT evaluation. (4) Closed head injury: Status: Acute Problem details: No intracranial bleed. Confusion may be due to concussion or acute illness. (5) Eyebrow laceration: Status: Acute Problem details: Healing well. Sutures out in a week (6) Dehydration: Status: Acute Problem details: Dehydration resolved with IV fluids (7) Thyroid lesion: Status: Acute Problem details: Outpatient thyroid ultrasound to evaluate calcified lesion in his thyroid gland. DS: Summary Hospital Course Hospital Course: Helder Colon is a 83 year old male presents emergency room for evaluation of illness and fall. First became ill about 2 days ago with weakness, chills and fever. His balance seemed to get worse he had urinary urgency and frequency. He had loss of appetite. During the night last night he got up to go to the bathroom and fell forward hitting his left eyebrow on a bedside table. He did not faint or lose consciousness. He reports he just fell. He has had some problems with balance. This is been a.m. mild and somewhat progressive problem over the past months. He particularly has trouble walking on uneven ground. He is diagnosed himself with neuropathy. He does not have numbness in his feet but just reports that his feet sometimes do not feel right and he has poor balance. He does not use assistive device to walk. He also has poor vision due to glaucoma and macular degeneration and cataracts. He gets injections in his eyes and takes eyedrops. Is a remote history of prostate cancer and prostatectomy. He tells me there is no longer any surveillance for prostate cancer. He does have some ongoing urinary symptoms following his prostatectomy. He was treated with ceftriaxone for presumed UTI. Urine culture grew E coli susceptible to ceftriaxone and cephalexin but resistant to ampicillin. Clinically had marked improvement during his hospital stay. He had dehydration which was treated with IV fluids and resolved. His appetite is back to normal today. He also had low potassium thought secondary to his poor oral intake. That improved with replacement. He had PT and OT evaluation both recommended outpatient further evaluation for what are probably acute on chronic deficits in gait, balance and cognitive impairment. Outpatient evaluation of a calcified lesion in his thyroid with thyroid ultrasound is also recommended Status at Discharge Functional status at discharge: uses cane/walker Overall status at discharge: patient is progressing back to baseline Time Spent with Patient Time attestation: Total time spent providing and/or coordinating discharge services: 45 minutes Exam Narrative: Exam Narrative: He is alert and in no distress. He is oriented to his circumstances. Left eye with ecchymosis but otherwise normal function and vision. Respirations are clear to auscultation. Cardiovascular: S1, S2, regular rate and rhythm. Abdomen is soft without tenderness or mass. Extremities without edema. Const: Vital Signs, click to edit/add: Vital Signs - 24 hr 08/12/23 14:30 08/12/23 15:35 08/12/23 15:35 Temperature 98 F Pulse Rate 100 76 Pulse Rate [Left A pical] 89 Pulse Rate [Pulse Oximeter] 89 Respiratory Rate 18 Blood Pressure [Ri t Arm] 114/86 Pulse Oximetry 97 Oxygen Delivery Me thod Room Air 08/12/23 19:00 08/12/23 23:00 08/12/23 23:00 Temperature 97.8 F Pulse Rate 63 Pulse Rate [Left A pical] Pulse Rate [Pulse Oximeter] 74 74 Respiratory Rate 18 16 Blood Pressure [Ri ght Arm] 122/82 Pulse Oximetry 96 Oxygen Delivery Me thod Room Air 08/13/23 00:43 08/13/23 04:45 08/13/23 07:00 Temperature 97.9 F 98 F 97.5 F L Pulse Rate Pulse Rate [Left A pical] 66 Pulse Rate [Pulse Oximeter] 68 74 66 Respiratory Rate 18 20 18 Blood Pressure [Ri ght Arm] 106/59 L 138/91 H 133/87 Pulse Oximetry 97 96 95 Oxygen Delivery Me thod Room Air Room Air Room Air Documenting provider has reviewed patient's vital signs: yes DS: Data Data Completed and Pending Labs on day of discharge: Labs from last 24 hours 08/13/23 08/13/23 08/12/23 07:13 05:59 00:55 Sodium 140 Potassium 3.5 L Chloride 107 Carbon Dioxide 26 Anion Gap 7 BUN 21 Creatinine 1.0 Estimated Creat Clear 59.82 Estimated GFR 76 Glucose 83 Calcium 7.9 L Magnesium 2.0 C-Reactive Protein 7.9 H Vitamin B12 281 TSH 0.433 Lab Acknowledgement Test Added Preliminary micro results at discharge 08/12/23 00:55 Blood Culture - Preliminary Blood NO GROWTH AFTER 24 HOURS 08/12/23 00:00 Blood Culture - Preliminary Blood NO GROWTH AFTER 24 HOURS Imaging MRI of the C-spine: Radiologist's impression: Indication: C7 abnormality on CT after fall Technique: Multiplanar, multisequence MRI of the cervical spine obtained without contrast. Comparison: CT cervical spine 08/12/2023 Findings: Exaggerated cervical lordosis. 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 Grade 1 retrolisthesis at C3-4, C4-5 and C5-6. Chronic C7 superior endplate compression deformity. Chronic anterior wedge configuration of T2. No acute osseus abnormality. Unremarkable bone marrow signal. Included posterior fossa structures are unremarkable. The spinal cord appears normal in course, caliber, and intrinsic signal. No suspicious findings in the prevertebral or paraspinal soft tissues. C2-C3: Congenital segmentation anomaly. No significant neural foraminal or spinal canal stenosis. C3-C4: Retrolisthesis, posterior disc-osteophyte complex. Mild-moderate bilateral neuroforaminal narrowing. Moderate spinal canal stenosis. C4-C5: Posterior disc-osteophyte complex, uncovertebral and facet arthropathy. Mild-moderate bilateral neuroforaminal narrowing. Moderate spinal canal stenosis. C5-C6: Posterior disc-osteophyte complex, uncovertebral arthropathy. Moderate bilateral neural foraminal stenosis. Moderate spinal canal stenosis. C6-C7: Left asymmetric uncovertebral arthropathy. Mild right, moderate left neural foraminal stenosis. No spinal canal stenosis. C7-T1: Left subarticular/foraminal disc-osteophyte complex. No right, moderately severe left neural foraminal stenosis with potential left C8 nerve root impingement. Mild spinal canal narrowing. Impression: 1. No evidence of acute osseous abnormality. 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 2. Chronic C7 superior endplate compression deformity. Chronic anterior wedge configuration of T2. 3. Cervical spondylosis, with exaggerated cervical lordosis, multilevel degenerative spondylolisthesis 4. Moderate spinal canal stenosis at C3-4, C4-5, and C5-6. 5. Moderately-severe left neural foraminal stenosis at C7-T1, with potential left C8 nerve root impingement. 6. Mild to moderate multilevel neural foraminal stenosis elsewhere as detailed. CT scan of the orbits: Radiologist's impression: INDICATION: Left eye injury from fall. TECHNIQUE: CT Orbit without i.v. contrast. Coronal and sagittal reformats were obtained. COMPARISON: None FINDINGS: Bone: No acute fractures or aggressive bone lesions are identified. Left partial mastoidectomy is noted. Joint: The temporomandibular joints are unremarkable in appearance. Sinus: The sinuses are well-aerated with no significant mucosal thickening or retained secretions seen. The ostiomeatal units are patent. The nasal turbinates are normal. The nasal septum is midline and intact. Orbit: The globes and optic nerves are grossly unremarkable. No mass or inflammatory changes are seen in the orbits. Soft tissue: Unremarkable. IMPRESSION: 1. No acute osseous injuries or abnormalities are seen. CT scan - head: Radiologist's impression: INDICATION: Fall, impact left eye area, head injury TECHNIQUE: CT Head without i.v. contrast. Coronal and sagittal reformats were obtained. COMPARISON: 07/19/2011 FINDINGS: CSF space: Unremarkable for age. Brain: No evidence of mass, acute infarction or hemorrhage is seen. No mass-effect or midline shift is seen. Mild diffuse cortical atrophy is noted. The brain parenchyma is otherwise normal in appearance with preservation of the mcdaniel-white matter junction. Calvarium: The visualized paranasal sinuses are well aerated. The mastoid air cells are clear. Mild left preseptal soft tissue swelling is noted. The calvarium is unremarkable in appearance with no fractures identified. IMPRESSION: 1. No evidence of acute infarction, intracranial hemorrhage, or mass-effect seen. Chest x-ray: Radiologist's impression: NDICATION: Chills, fall, chest injury TECHNIQUE: Chest radiograph 1 view COMPARISON: None FINDINGS: Mediastinum: A moderate sliding type gastric hiatal hernia (type IV) is present. The cardiac silhouette is mildly enlarged but may be accentuated by the portable technique. Lung: A cluster of high density nodules are seen in the left lung base. This may be due to previous aspiration of barium. No sign of pleural effusion seen. No pneumothorax is identified. Bone and Soft tissue: There is a fracture of the left clavicle present with the distal fragment displaced inferiorly by 2 cm. IMPRESSIONS: 1. The cardiac silhouette is mildly enlarged but may be accentuated by the portable technique. 2. There is a fracture of the left clavicle present with the distal fragment displaced inferiorly by 2 cm. Discharge Plan Discharge Disposition: Home, Self-Care Date of Admission: 08/12/23 09:51 Attending Provider on Discharge: Pito Jesus Primary Care Provider: Richmond Anthony Condition: Improved Anticipated Discharge Date/Time: 08/13/23 11:10 Discharge Medications: New cephalexin 500 mg Capsule 500 mg PO TID Qty: 21 0RF Continued latanoprost 0.005 % drops 1 drp ophthalmic (eye) QPM Patient Comments: BOTH EYES lisinopril 20 mg tablet 20 mg PO DAILY Patient Comments: TAKE 1 TABLET BY MOUTH EVERY DAY brimonidine 0.2 % drops 1 drp ophthalmic (eye) DAILY Patient Comments: BOTH EYES omeprazole 20 mg capsule,delayed release(DR/EC) 20 mg PO DAILY Patient Comments: hydrochlorothiazide 25 mg tablet 25 mg PO DAILY Patient Comments: timolol maleate 0.5 % drops 1 drp ophthalmic (eye) DAILY Patient Comments: BOTH EYES Discharge Orders: Discharge Order (Routine); Ordered 08/13/23 Ordered By: Pito Jesus Patient Education: Cephalexin (By mouth), Ciprofloxacin (By mouth), Urinary Tract Infection in Men (DC) Additional Instructions: See your doctor in 1 week. You will need your sutures removed. Your doctor can discuss further evaluation of your abnormality in your thyroid gland. I recommend outpatient therapy to evaluate your gait and balance. I am treating you with an antibiotic, cephalexin, to take 3 times a day for 1 week. Activity Level: Use Cane Discharge Diet: Regular Follow Up Appointments: Richmond Anthony MD [Primary Care Provider] - 08/20/23 1:40 pm (One week for recheck and suture removal) [facility]
--- NOTE | 2023-08-13 12:58 | PC.NURSE ---
Patients daughter called (from contact list) and updated on patients medications, informed not to order picker Cipro from pharmacy.
--- NOTE | 2023-08-13 14:29 | PC.NURSE ---
shift note: pt up SBA/walker. pt denies pain. pt denies dizziness or NETTLES. pupils reactive to light with lt smaller than rt. Lt eye swollen with bruising. vss stable. pt afeb. Reviewed dc instructions with pt and his family. IV dc'd intact LT Wrist. Copies of dc instructions and belongings sent with pt.
== END 2023-08-13 12:38 | disposition home or self-care (01) | DRG 988 ==
LOC: ED 08-12 07:48 → MEDSURG 08-12 12:32
PROVIDERS: Family Medicine; Admitting Provider Family Medicine; Emergency Provider Family Medicine; PCP Family Medicine; Visit Provider Family Medicine
DX: N39.0 Urinary tract infection, site not specified (principal); F05 Delirium due to known physiological condition; B96.20 Unspecified Escherichia coli [E. coli] as the cause of diseases classified elsewhere; I10 Essential (primary) hypertension; E07.9 Disorder of thyroid, unspecified; E86.0 Dehydration; S01.112A Laceration without foreign body of left eyelid and periocular area, initial encounter; W06.XXXA Fall from bed, initial encounter; S09.8XXA Other specified injuries of head, initial encounter; R26.81 Unsteadiness on feet
CPT/HCPCS: 12013; 36415; 51798; 70450; 70480; 71045; 72125; 72141; 80048; 80053; 81001; 82607; 83605; 83690; 83735; 84443; 84484; 85025; 86140; 87040; 87086; 87186; 87631; 97112; 97116; 97162; 97165; 97535; 99285; 99291; A9270; J0696; J1650; J7030; J7120

== ENCOUNTER 2023-09-07 14:00 | Outpatient (RCR) | payer MEDICARE, SELFPAY | END 2023-09-07 17:35 | disposition home or self-care (01) | PROVIDERS: PCP Family Medicine; Visit Provider Family Medicine | DX: R26.81 Unsteadiness on feet (principal); Z51.89 Encounter for other specified aftercare | CPT/HCPCS: 97110; 97112; 97116; 97162 ==

== ENCOUNTER 2023-09-14 11:00 | Outpatient (RCR) | payer MEDICARE, SELFPAY | END 2024-01-12 23:59 | disposition home or self-care (01) | PROVIDERS: PCP Family Medicine; Visit Provider Family Medicine | DX: R41.89 Other symptoms and signs involving cognitive functions and awareness (principal); R26.81 Unsteadiness on feet; Z51.89 Encounter for other specified aftercare | CPT/HCPCS: 97110; 97116; 97162; 97165; 97535 ==

== ENCOUNTER 2023-09-20 09:04 | Outpatient (CLI) | payer MEDICARE, SELFPAY ==
--- NOTE | 2023-09-20 09:15 | CRLHL7_ITS ---
For Patients: As a result of the Century Cures Act, medical imaging exams and procedure reports are released immediately into your electronic medical record. You may view this report before your referring provider. If you have questions, please contact your health care provider. INDICATION : Left thyroid nodule. TECHNIQUE : Ultrasound-guided fine needle aspiration of thyroid nodule. Comparison : 09/06/2023 FINDINGS : PROCEDURE: After the informed consent and time-out, multiple fine needle aspirations were obtained from the thyroid nodule. Fine needle performed. 25 gauge needles were used. Procedure was difficult due to the presence of calcifications. Lidocaine was used for local anesthesia. The preliminary cytology was adequate for interpretation. Real-time imaging was used for guidance and needle placement. Post imaging ultrasound demonstrates no immediate complication. IMPRESSION : Successful fine needle aspiration of calcified left thyroid nodule. If the pathology is indeterminate due to paucity of cellular material, a follow-up ultrasound in 1 year is recommended. Dictated by Camron Garces MD @ 09/20/2023 10:57:34 AM (Electronically Signed)
== END 2023-09-20 09:05 | disposition home or self-care (01) ==
LOC: US 09:05
PROVIDERS: PCP Family Medicine; Visit Provider Family Medicine
DX: E04.1 Nontoxic single thyroid nodule (principal)
CPT/HCPCS: 10005; 88173

== ENCOUNTER 2024-08-07 13:45 | Outpatient (RCR) | payer MEDICARE, SELFPAY | END 2024-09-07 15:34 | disposition home or self-care (01) | PROVIDERS: PCP Family Medicine; Visit Provider Family Medicine | DX: R26.81 Unsteadiness on feet (principal); Z51.89 Encounter for other specified aftercare | CPT/HCPCS: 97112; 97116; 97140; 97161 ==

== ENCOUNTER 2024-08-30 21:26 | Emergency (ER) | payer MEDICARE, SELFPAY ==
[2024-08-30 21:36] VITALS: BP 123/80; PULSE 84; RESP 20; TEMP 36.9; O2SAT 99; BMI 26.5
--- NOTE | 2024-08-30 21:39 | ED.WEAKNESS ---
HPI - Weakness General Time Seen by Provider: 21:39 Date Seen: 08/30/24 Chief complaint: Weakness Stated complaint: fever 100.6, weak Time Seen by Provider: 08/30/24 21:27 Source: patient, family and RN notes reviewed Mode of arrival: ambulatory Limitations: no limitations History of Present Illness HPI Narrative: If this 84-year-old male is coming in accompanied by his for concern of fevers up to 100.7 starting today. He has had some nasal congestion, mild sore throat, some cough about a day or day and a half now. Fevers started this afternoon. They did do a home COVID test which was negative. He was hospitalized with a UTI last August. He denies any urinary symptoms. He is feeling weak with this if but has had no falls. He reports if no abdominal pain, no nausea or vomiting, no diarrhea, no dysuria. He was unable to urinate on arrival, we did do an in and out catheter, he states now he has some pain from that but did not until we did that procedure. Related Data Home Medications ?Medication ?Instructions ?Recorded ?Confirmed brimonidine 0.2 % eye drops 1 drp ophthalmic (eye) DAILY 10/09/22 08/12/23 hydrochlorothiazide 25 mg tablet 25 mg PO DAILY 10/09/22 08/12/23 latanoprost 0.005 % eye drops 1 drp ophthalmic (eye) QPM 10/09/22 08/12/23 lisinopril 20 mg tablet 20 mg PO DAILY 10/09/22 08/12/23 omeprazole 20 mg capsule,delayed 20 mg PO DAILY 10/09/22 08/12/23 release timolol maleate 0.5 % eye drops 1 drp ophthalmic (eye) DAILY 10/09/22 08/12/23 Previous Rx's ?Medication ?Instructions ?Recorded cephalexin 500 mg capsule 500 mg PO TID #21 caps 08/13/23 Allergies Allergy/AdvReac Type Severity Reaction Status Date / Time No Known Drug Allergies Allergy Verified 10/09/22 11:10 Review of Systems Status of ROS: Reports: 6 or more systems reviewed and unremarkable except as noted in History and below [facility] Medical History Cervical spine arthritis ?M47.812 - Spondylosis without myelopathy or radiculopathy, cervical region (ICD-10) Dehydration ?E86.0 - Dehydration (ICD-10) Poor balance ?R26.89 - Other abnormalities of gait and mobility (ICD-10) Closed head injury ?S09.90XA - Unspecified injury of head, initial encounter (ICD-10) Left bundle branch block ?I44.7 - Left bundle-branch block, unspecified (ICD-10) Conductive hearing loss ?H90.2 - Conductive hearing loss, unspecified (ICD-10) Cataracts, bilateral ?H26.9 - Unspecified cataract (ICD-10) Glaucoma ?H40.9 - Unspecified glaucoma (ICD-10) Macular degeneration ?H35.30 - Unspecified macular degeneration (ICD-10) Hypertension ?I10 - Essential (primary) hypertension (ICD-10) Prostate cancer ?C61 - Malignant neoplasm of prostate (ICD-10) Surgical History History of tonsillectomy ?Z90.89 - Acquired absence of other organs (ICD-10) H/O mastoidectomy ?Z90.89 - Acquired absence of other organs (ICD-10) Status post removal of Zenker's diverticulum ?Z98.890 - Other specified postprocedural states (ICD-10) ?Z87.19 - Personal history of other diseases of the digestive system (ICD-10) History of esophagogastroduodenoscopy (EGD) ?Z98.890 - Other specified postprocedural states (ICD-10) History of colonoscopy ?Z98.890 - Other specified postprocedural states (ICD-10) H/O prostatectomy ?Z90.79 - Acquired absence of other genital organ(s) (ICD-10) Family History Brother Prostate cancer Father Prostate cancer Mother Diabetes Social History Narrative: Patient lives with his in [place]. His live independently. 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 He does not smoke. He rarely drinks alcohol. Code status is DNR. He does not use a walker or cane with ambulation. What is your current living situation?: I presently have a place to live Problems where you live: no known problems Problems where you live details: denies problems In the past 12 months, utilities in danger of being shut off: no In past 12 months, lack of transportation kept you from medical appts, meetings, work, or getting things needed for daily living: no In the past 12 mos, have been you worried that your food would run out before you had money to buy more?: never true In the past 12 mos, the food you bought just didn't last and you didn't have money to buy more?: never true Highest level of school completed/degree received: Master's degree Smoking Status: Never smoker Second hand tobacco smoke exposure: No How often do you have a drink containing alcohol: monthly or less Alcohol type details: one glass of wine every 5 months or so, very rarely socially AUDIT-C Alcohol total score: 1 Non-prescribed substance use: denies use Caffeine: Yes (coca cola) How often does anyone, including family, friends and others, physically hurt you: never How often does anyone, including family, friends and others, insult or talk down to you: never How often does anyone, including family, friends and others, threaten you with harm: never How often does anyone, including family, friends and others, scream or curse at you: never service: No Exam Const: Vital Signs, click to edit/add: Vital Signs - 24 hr 08/30/24 21:36 08/30/24 21:40 08/30/24 23:52 Temperature 98.5 F 98.5 F Pulse Rate [Right Pulse Oximeter] 84 65 Respiratory Rate 20 20 Blood Pressure [Ri ght Upper Arm] 123/80 118/78 Pulse Oximetry 99 98 98 Oxygen Delivery Me thod Room Air Room Air 08/30/24 23:53 Temperature 98.5 F Pulse Rate [Right Pulse Oximeter] 65 Respiratory Rate 20 Blood Pressure [Ri ght Upper Arm] 118/78 Pulse Oximetry Oxygen Delivery Me thod 84-year-old male is alert, interactive, no apparent distress. He is ambulatory into the ED of his own accord. Sclera clear, conjugate gaze. Face atraumatic, no rash. Speaking complete sentences. Neck supple, no adenopathy or masses. Lungs are clear, good air entry, no wheezing or crackles, no tachypnea. CV regular rate and rhythm, do not hear any murmur, normal S1-S2, no S3-S4. Abdomen is soft, nontender, nondistended, no masses noted. He has no lower extremity edema. Documenting provider has reviewed patient's vital signs: yes Course Course ED Course: Patient does have upper respiratory symptoms with nasal congestion, sore throat, cough, generalized weakness with fever starting today. Will look for infectious etiology including viral pathogens with COVID PCR, influenza, RSV. Will get a portable chest x-ray. Will get a full complement of labs. He is afebrile here now at this time, hemodynamically stable, do note that he did get Tylenol earlier this evening. Due to the shortage of blood cultures, blood culture is not indicated at this time based on his stability of vitals in his presentation, reconsider if any of his labs are concerning or status changes. Will look at lactate, procalcitonin, CRP, CBC, comprehensive metabolic panel. Will look at the EKG and troponin with his complaint of weakness. Certainly pneumonia is a possibility as well. Reevaluation(s) Time of Reevaluation #1: 23:47 Reevaluation #1: Have reviewed laboratory findings with them. His procalcitonin is quite low. C-reactive protein is elevated but given his clinical current symptom, a viral etiology could do this. He states his cough really is not been that bad, is having more nasal congestion. His white blood count is completely normal. Urinalysis is definitely not pointing towards infection like he it was when he was here in August of last year. They understand that we will culture this. His viral triple swab is negative. Chest x-ray is not showing any acute infectious etiology. Vital Signs Vital signs: Initial Vital Signs Temperature 98.5 F 08/30/24 21:36 Temperature Source Temporal Artery Scan 08/30/24 21:36 Pulse Rate 84 08/30/24 21:36 Respiratory Rate 20 08/30/24 21:36 Blood Pressure 123/80 08/30/24 21:36 Blood Pressure Mean 94 08/30/24 21:36 Blood Pressure Position Sitting 08/30/24 21:36 Pulse Oximetry 99 08/30/24 21:36 Oxygen Delivery Method Room Air 08/30/24 21:36 Vital Signs Temperature 98.5 F 08/30/24 21:36 Pulse Rate 84 08/30/24 21:36 Respiratory Rate 20 08/30/24 21:36 Blood Pressure 123/80 08/30/24 21:36 Pulse Oximetry 99 08/30/24 21:36 Oxygen Delivery Method Room Air 08/30/24 21:36 Temperature 98.5 F 08/30/24 23:53 Pulse Rate 65 08/30/24 23:53 Respiratory Rate 20 08/30/24 23:53 Blood Pressure 118/78 08/30/24 23:53 Pulse Oximetry 98 08/30/24 23:52 Oxygen Delivery Method Room Air 08/30/24 23:52 MDM - Weakness Lab Data Attestation: I reviewed the patient's lab results. Labs: Lab Results 08/30/24 08/30/24 08/30/24 Range/Units 21:41 21:45 22:07 WBC 6.23 (4.50-11.00) K/uL RBC 4.93 (4.30-5.90) m/uL Hgb 15.1 (13.5-17.5) gm/dL Hct 45.4 (37.0-53.0) % MCV 92 (80-100) fL MCH 31 (26-34) pg MCHC 33 (32-36) gm/dL RDW Coeff of [place] 13.9 (11.5-15.5) % Plt Count 220 (140-440) K/uL Neut % (Auto) 73.3 H (42.0-72.0) % Lymph % (Auto) 10.1 L (20-44) % [place] % (Auto) 14.6 H (0.0-11.0) % Eos % (Auto) 1.0 (0.0-7.0) % Baso % (Auto) 0.8 (0.0-3.0) % Neut # (Auto) 4.60 (1.7-7.0) K/uL Lymph # (Auto) 0.60 L (0.90-2.90) K/uL [place] # (Auto) 0.90 (0.00-0.90) K/UL Eos # (Auto) 0.06 (0.00-0.50) K/uL Baso # (Auto) 0.05 (0.00-0.30) K/uL Abs Immat Gran (auto) 0.01 (0.00-0.30) K/uL Imm/Tot Granulo (auto) 0.2 % Sodium 134 L (135-149) mmol/L Potassium 3.3 L (3.6-5.1) mmol/L Chloride 102 (96-114) mmol/L Carbon Dioxide 23 (20-32) mmol/L Anion Gap 9 (7-15) mEq/L BUN 23 (7-30) mg/dL Creatinine 1.0 (0.5-1.5) mg/dL Estimated Creat Clear 58.81 Estimated GFR 75 ml/min Glucose 118 H (60-115) mg/dL Lactate 0.9 (0.5-1.9) mmol/L Calcium 8.8 (8.4-10.6) mg/dL Total Bilirubin 0.8 (0.1-1.5) mg/dL AST 30 (12-35) U/L ALT 25 (4-50) U/L Alkaline Phosphatase 92 (40-150) U/L Troponin I 0.01 (0.01-0.04) ng/mL C-Reactive Protein 5.3 H (0.5-1.0) mg/dL Total Protein 7.5 (6.0-8.3) g/dL Albumin 4.2 (3.3-5.0) g/dL Procalcitonin 0.08 (<0.50) ng/mL Urine Color Yellow (Yellow) Urine Appearance Clear (Clear) Urine pH 5.5 (5.0-8.5) Ur Specific [place] 1.025 (1.000-1.030) Urine Protein 1+ A (Negative) Urine Glucose (UA) Negative (Negative) Urine Ketones Negative (Negative) Urine Blood 1+ A (Negative) Urine Nitrite Negative (Negative) Urine Bilirubin Negative (Negative) Urine Urobilinogen 0.2 (0.2-1.0) Ur Leukocyte Esterase Negative (Negative) Urine RBC 0-2 (0-2) Urine WBC 0-2 (0-5) Ur Squamous Epith Cells None (None-Few) Urine Bacteria None (None) SARS-CoV-2 (PCR) Negative SARS-CoV-2 (Negative) Influenza Type A (PCR) Negative PCR FLU A (Negative) Influenza Type B (PCR) Negative PCR FLU B (Negative) RSV (PCR) Negative PCR RSV (Negative) Imaging Data Chest x-ray: Attestation: I have reviewed the pertinent imaging results. My impression: I do not appreciate any infiltrate or pneumonia on my preliminary review of his portable chest x-ray. Radiologist's impression: Patient: YOVANNY MANCIA Facility:?[facility] Patient ID:?[id number] Site Patient ID:?[id number]. Site :?[id number] Study:?XRay-Chest PCXR-08/30/2024 10:08:37 PM Ordering Physician:?Griffin Daniel Final Report: INDICATION: Weakness, fever. TECHNIQUE: Chest 1 view. COMPARISON: 08/12/2023. FINDINGS: Cardiovascular and mediastinum: Normal heart size. Tortuous and atherosclerotic thoracic aorta. Moderate-sized hiatal hernia. Lungs and pleural spaces: Unchanged high-density nodular opacities within the left lung base. No acute consolidation, pleural effusion, or pneumothorax. Bones and soft tissues: Chronic displaced left midshaft clavicular fracture. Otherwise, unremarkable for age. IMPRESSION: 1. No evidence of an acute pulmonary process. 2. Moderate hiatal hernia. 3. Chronic displaced left midshaft clavicular fracture. Dictated by Maverick Berry MD @ 08/30/2024 10:29:56 PM (Electronic Signature) ECG Data Attestation: I personally reviewed and interpreted this ECG as follows: (Sinus rhythm, 76 beats per minute. Premature complexes seen. Left bundle branch block.) ECG interpretation date: 08/30/24 ECG interpretation time: 21:58 Prior ECG tracings: available for review (Left bundle branch block documented on prior EKG in October of 2022.) Discharge Plan Discharge Clinical Impression: Fever, Upper respiratory infection, viral Instructions: Fever in Adults (ED), Upper Respiratory Infection (ED) Additional Instructions: Monitor symptoms closely. If you feel you are worsening, fevers not improving over the next few days, develop specific concerning symptoms like worsening cough, do recommend re-evaluation. We will certainly let you know if the urine culture does grow anything but urinalysis is reassuring for no infection at this time. Other lab tests point towards viral pathology which do not respond to antibiotics. Stay hydrated, use Tylenol per bottle directions as needed for fever control. Activity Level: Activity as Tolerated Prescriptions: No Action latanoprost 0.005 % drops 1 drp ophthalmic (eye) QPM Patient Comments: BOTH EYES lisinopril 20 mg tablet 20 mg PO DAILY Patient Comments: TAKE 1 TABLET BY MOUTH EVERY DAY brimonidine 0.2 % drops 1 drp ophthalmic (eye) DAILY Patient Comments: BOTH EYES omeprazole 20 mg capsule,delayed release(DR/EC) 20 mg PO DAILY Patient Comments: hydrochlorothiazide 25 mg tablet 25 mg PO DAILY Patient Comments: timolol maleate 0.5 % drops 1 drp ophthalmic (eye) DAILY Patient Comments: BOTH EYES cephalexin 500 mg Capsule 500 mg PO TID Qty: 21 0RF Follow Up/Referrals: Richmond Anthony MD [Primary Care Provider] - Stand Alone Forms: [employer] Info Instructions
[2024-08-30 21:40] VITALS: O2SAT 98
--- NOTE | 2024-08-30 21:40 | CRLHL7_ITS ---
For Patients: As a result of the Cures Act, medical imaging exams and procedure reports are released immediately into your electronic medical record. You may view this report before your referring provider. If you have questions, please contact your health care provider. INDICATION: Weakness, fever. TECHNIQUE: Chest 1 view. COMPARISON: 08/12/2023. FINDINGS: Cardiovascular and mediastinum: Normal heart size. Tortuous and atherosclerotic thoracic aorta. Moderate-sized hiatal hernia. Lungs and pleural spaces: Unchanged high-density nodular opacities within the left lung base. No acute consolidation, pleural effusion, or pneumothorax. Bones and soft tissues: Chronic displaced left midshaft clavicular fracture. Otherwise, unremarkable for age. IMPRESSION: 1. No evidence of an acute pulmonary process. 2. Moderate hiatal hernia. 3. Chronic displaced left midshaft clavicular fracture. Dictated by Maverick Berry MD @ 08/30/2024 10:29:56 PM (Electronically Signed)
[2024-08-30 21:53] LABS: Appearance Urine Clear (Clear); Bilirubin Urine Negative (Negative); Blood Urine 1+ (Negative); Color Urine Yellow (Yellow); Glucose Urine Negative (Negative); Ketones Urine Negative (Negative); Leukocyte Esterase Urine Negative (Negative); Nitrite Urine Negative (Negative); Protein Urine 1+ (Negative); Specific Gravity Urine 1.025 (1.000-1.030); Urobilinogen Urine 0.2 (0.2-1.0); pH Urine 5.5 (5.0-8.5)
[2024-08-30 22:04] LABS: RBC Urine 0-2 (0-2); WBC Urine 0-2 (0-5)
[2024-08-30 22:09] LABS: Lactate* 0.9 mmol/L (0.5-1.9)
[2024-08-30 22:11] LABS: Basophils Absolute Auto 0.05 K/uL (0.00-0.30); Basophils Percent Auto 0.8 % (0.0-3.0); Eosinophils Absolute Auto 0.06 K/uL (0.00-0.50); Hematocrit 45.4 % (37.0-53.0); Hemoglobin* 15.1 gm/dL (13.5-17.5); Immature Granulocytes Abs Auto 0.01 K/uL (0.00-0.30); Immature Granulocytes Pct Auto 0.2 %; Lymphocytes Percent Auto 10.1 % (20-44); Mean Corpuscular HGB Conc 33 gm/dL (32-36); Mean Corpuscular Hemoglobin 31 pg (26-34); Mean Corpuscular Volume 92 fL (80-100); Monocytes Percent Auto 14.6 % (0.0-11.0); Neutrophils Percent Auto 73.3 % (42.0-72.0); Platelet Count* 220 K/uL (140-440); RDW Coefficient of Variation % 13.9 % (11.5-15.5); Red Blood Count 4.93 m/uL (4.30-5.90); White Blood Count* 6.23 K/uL (4.50-11.00)
[2024-08-30 22:13] LABS: Slide Review Reflex No
[2024-08-30 22:28] LABS: PCR FLU A Negative PCR FLU A (Negative); PCR FLU B Negative PCR FLU B (Negative); PCR RSV Negative PCR RSV (Negative); SARS PCR* Negative SARS-CoV-2 (Negative)
[2024-08-30 23:02] LABS: Albumin* 4.2 g/dL (3.3-5.0); Chloride* 102 mmol/L (96-114); Sodium* 134 mmol/L (135-149)
[2024-08-30 23:03] LABS: Potassium* 3.3 mmol/L (3.6-5.1)
[2024-08-30 23:04] LABS: Est. Creatinine Clearance* 58.81; Estimated Glomerular Filt Rate 75 ml/min
[2024-08-30 23:05] LABS: Alanine Aminotransferase* 25 U/L (4-50); Alkaline Phosphatase* 92 U/L (40-150); Anion Gap 9 mEq/L (7-15); Aspartate Amino Transferase* 30 U/L (12-35); Bilirubin Total* 0.8 mg/dL (0.1-1.5); Blood Urea Nitrogen* 23 mg/dL (7-30); Carbon Dioxide* 23 mmol/L (20-32); Glucose* 118 mg/dL (60-115); Total Protein* 7.5 g/dL (6.0-8.3)
[2024-08-30 23:06] LABS: Calcium* 8.8 mg/dL (8.4-10.6)
[2024-08-30 23:08] LABS: C Reactive Protein* 5.3 mg/dL (0.5-1.0)
[2024-08-30 23:17] LABS: Troponin I* 0.01 ng/mL (0.01-0.04)
[2024-08-30 23:22] LABS: Procalcitonin* 0.08 ng/mL (<0.50)
[2024-08-30 23:52] VITALS: BP 118/78; PULSE 65; RESP 20; TEMP 36.9; O2SAT 98
[2024-08-30 23:53] VITALS: BP 118/78; PULSE 65; RESP 20; TEMP 36.9
== END 2024-08-30 23:55 | disposition home or self-care (01) ==
PROVIDERS: Emergency Provider Family Medicine; PCP Family Medicine
DX: R50.9 Fever, unspecified (principal); J06.9 Acute upper respiratory infection, unspecified
CPT/HCPCS: 36415; 71045; 80053; 81001; 83605; 84145; 84484; 85025; 86140; 87631; 93005; 94761; 99284

== ENCOUNTER 2025-08-07 07:34 | Emergency (ER) | payer MEDICARE, SELFPAY ==
--- OUTSIDE RECORDS SUMMARY | 2025-06-28 10:15 | XMS_ITS | Encounter Summary ---
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 [address] [place] [address] Phone: tel: fax: Department of Neurology in [place], [place] [address] [place] [address] Phone: tel: fax: Referral ID Status Reason Start Date Expiration Date V isits Requested Visits Authorized [id number] Authorized 03/09/2024 10/04/2025 30 40 Encounter Details Date Type Department Care Team (Late st Contact Info) Description 06/28/2025 10:15 AM CDT Infusion Department of Infusion Therapy in [place], [place] [address] [place] [address] [place] [address] Lobito Toscano M.D., Ph.D. 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 No 03/14/2025 Humiliation, Afraid, Rape, and Kick questionnair e Answer Date Recorded Within the last year, have y ou been afraid of your partner or ex-partner? No 12/08/2022 Within the last year, have y ou been humiliated or emotionally abused in other ways by your partner or ex-partner? No Within the last year, have y ou been kicked, hit, slapped, or otherwise physically hurt by your partner or ex-partner? No 12/08/2022 Within the last year, have y ou been raped or forced to have any kind of sexual activity by your partner or ex-partner? No 12/08/2022 Hunger Vital Sign Answer Date Recorded Within the past 12 months, y ou worried that your food would run out before you got the money to buy more. Never true 03/14/20 25 Within the past 12 months, t he food you bought just didn't last and you didn't have money to get more. Never true 03/14/2025 PRAPARE - Transportation Answer Date Re corded In the past 12 months, has l ack of transportation kept you from medical appointments or from getting medications? No 05/2025 In the past 12 months, has l ack of transportation kept you from meetings, work, or from getting things needed for daily living? No 03/14/2025 Housing Stability Answer Date Recorded What is your living situation today? I have a [facility] place to live 03/14/2025 Education Answer Date Recorded What is the highest level of school you have completed or the highest degree you have received? Master's degree (e.g., MA, MS, Jacob, MEd, COPY ROOM TECHNICIAN, JULIA) 03/21/2022 Sex and Gender Information Value Date Recorded Sex Assigned at Male 03/18/2022 9:01 AM CDT Legal Sex Male 1:04 PM CDT Gender Identity Male 03/18/2022 9:01 AM CDT Sexual Orientation Straight 03/18/2022 9: 01 AM CDT documented as of this encounter Last Filed Vital Signs Vital Sign Reading Time Taken Comments Blood Pressure 106/66 06/28/2025 12:18 PM CDT Pulse 58 06/28/2025 12:18 PM CDT Temperature 36.4 C (97.5 F) 06/28/2025 10:32 AM CDT Respiratory Rate 16 06/28/2025 12:18 PM CDT Oxygen Saturation - - Inhaled Oxygen Concentration - - Weight 80.5 kg (177 lb 7.5 oz) 06/28/2025 10:32 AM CDT Height - - Body Mass Index 25.46 01/12/2025 5:56 PM SCARF GLUER documented in this encounter Plan of Treatment Upcoming Encounters Date Type Department Care Team (Late st Contact Info) Description 08/09/2025 11:45 AM CDT Infusion Department of Infusion Therapy in [address] [id number] Lobito Toscano M.D., Ph.D. [address] [place] [phone] 08/23/2025 10:15 AM CDT Infusion Department of Infusion Therapy in [address] [address] Lobito Toscano M.D., Ph.D. [address] [place] [phone] 09/06/2025 10:30 AM CDT Infusion Department of Infusion Therapy in [place], [place] [address] [place] [id number] Lobito Toscano M.D., Ph.D. [address] [place] [phone] 09/20/2025 10:15 AM SCARF GLUER Infusion Department of Infusion Therapy in [address] [address] Lobito Toscano M.D., Ph.D. [address] [place] [phone] 10/04/2025 10:00 AM SCARF GLUER Infusion Department of Infusion Therapy in [address] [address] Lobito Toscano M.D., Ph.D. 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) New Bag 06/28/2025 11:08 AM CDT 800 mg 258 mL/hr NaCl 0.9% infusion 1-999 mL/hr, intravenous, As needed, Post Medications (Hazardous/Low Fluid Volume), Starting on [place] 06/28/25 at 1020, Infuse at the same rate as the medication until tubing cleared of medication, then discard.Indications:Unspecifi ed Dementia Unspecified Severity Without Behavioral Disturbance 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
--- OUTSIDE RECORDS SUMMARY | 2025-07-12 10:15 | XMS_ITS | Encounter Summary ---
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 [address] [place] [phone] Phone: tel: fax: Department of Neurology in [place], [place] 200 [place] [address] Phone: tel: fax: Referral ID Status Reason Start Date Expiration Date V isits Requested Visits Authorized [id number] Authorized 03/09/2024 10/04/2025 30 40 Encounter Details Date Type Department Care Team (Late st Contact Info) Description 07/12/2025 10:15 AM CDT Infusion Department of Infusion Therapy in [place], [place] [address] [place] [address] [place] [address] Lobito Toscano M.D., Ph.D. 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 I have a [facility] place to live 03/14/2025 Education Answer Date Recorded What is the highest level of school you have completed or the highest degree you have received? Master's degree (e.g., MA, MS, Jacob, MEd, [employer], JULIA) 03/21/2022 Sex and Gender Information Value Date Recorded Sex Assigned at Male 03/18/2022 9:01 AM CDT Legal Sex Male 1:04 PM CDT Gender Identity Male 03/18/2022 9:01 AM CDT Sexual Orientation Straight 03/18/2022 9: 01 AM CDT documented as of this encounter Last Filed Vital Signs Vital Sign Reading Time Taken Comments Blood Pressure 97/60 07/12/2025 12:00 PM CDT Pulse 53 07/12/2025 12:00 PM CDT Temperature 36.4 C (97.5 F) 07/12/2025 10:23 AM CDT Respiratory Rate 16 07/12/2025 12:0 0 PM CDT Oxygen Saturation - - Inhaled Oxygen Concentration - - Weight 80.6 kg (177 lb 11.1 oz) 025 10:23 AM CDT Height - - Body Mass Index 25.5 01/12/2025 5:56 PM BREAKER HAND documented in this encounter Plan of Treatment Upcoming Encounters Date Type Department Care Team (Late st Contact Info) Description 08/09/2025 11:45 AM CDT Infusion Department of Infusion Therapy in [address] [address] Lobito Toscano M.D., Ph.D. [address] [place] [phone] 08/23/2025 10:15 AM CDT Infusion Department of Infusion Therapy in [address] [address] Lobito Toscano M.D., Ph.D. [address] [place] [phone] 09/06/2025 10:30 AM CDT Infusion Department of Infusion Therapy in [place], [place] [address] [place] [address] Lobito Toscano M.D., Ph.D. [address] [place] [phone] 09/20/2025 10:15 AM BREAKER HAND Infusion Department of Infusion Therapy in [address] [address] Lobito Toscano M.D., Ph.D. [address] [place] [phone] 10/04/2025 10:00 AM BREAKER HAND Infusion Department of Infusion Therapy in [address] [address] Lobito Toscano M.D., Ph.D. 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) New Bag 07/12/2025 10:44 AM CDT 800 mg 258 mL/hr NaCl 0.9% infusion 1-999 mL/hr, intravenous, As needed, Post Medications (Hazardous/Low Fluid Volume), Starting on Paola 07/12/25 at 1026, Infuse at the same rate as the medication until tubing cleared of medication, then discard.Indications:Unspecifi ed Dementia Unspecified Severity Without Behavioral Disturbance 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),Degeneration Macular New Bag 07/12/2025 11:48 AM CDT 258 mL/hr 258 mL/hr sodium chloride 0.9 % injection 3 mL 3 mL, intravenous, As needed, line care, Starting on Paola 07/12/25 at 1026, Prior to and following infusion and between multiple consecutive infusions.Indications:Unspeci fied Dementia Unspecified Severity Without Behavioral Disturbance 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
--- OUTSIDE RECORDS SUMMARY | 2025-07-25 09:00 | XMS_ITS | Encounter Summary ---
Author Organization [facility] Address [address] [place] [address] Care Team Providers Care Correctional Probation Officer Name Role Phone Elsewhere, Pcp Primary Care Provider Unavailabl e Reason for Visit * Outpatient (Routine) - Closed Specialty Diagnoses / Procedures Referred By Ting mendes Referred To Contact Neurology Diagnoses na Carmine Mauricio M.D. [address] [place] [phone] Phone: tel: fax: [facility] Referral ID Status Reason Start Date Expiration Date Visits Re quested Visits Authorized [id number] Closed 03/22/2025 09/21/2026 1 1 Encounter Details Date Type Department Care Team (Latest Contact Info) Description 07/25/2025 9:00 AM CDT Virtual Visit Department of Neurology in [place], [place] [address] [place] [phone] Carmine Mauricio M.D. [address] [place] [phone] Rebecca Gonzales R.N. 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 I have a [facility] place to live 03/14/2025 Education Answer Date Recorded What is the highest level of school you have completed or the highest degree you have received? Master's degree (e.g., MA, MS, Jacob, MEd, RN LACTATION CONSULTANT, JULIA) 03/21/2022 Sex and Gender Information Value Date Recorded Sex Assigned at Male 03/18/2022 9:01 AM CDT Legal Sex Male 1:04 PM CDT Gender Identity Male 03/18/2022 9:01 AM CDT Sexual Orientation Straight 03/18/2022 9: 01 AM CDT documented as of this encounter Progress Notes * Rebecca Gonzales R.N. - 07/25/2025 9:00 AM CDT I met with MrAndres and Mrs. Colon via phone to touch base and inquire how things have been with the [facility] and Lecanemab (Leqembi) infusions thus far. This is week #65 of Lecanemab (Leqembi) infusions. Mr. Colon is following our standard pathway with his Lecanemab (Leqembi) infusions. Infusions received: Infusion #32: 07/12/2025 Infusion #33: is scheduled for 07/26/2025 at 10:15 am. Next MRI: To be scheduled during week #78 at the end of the 18 month treatment. New symptoms: None. Infusion Reactions: None. Issues with Administration: None. Changes in Medication or Health: None. Other Issues: MrAndres and Mrs. Colon both agree that Mr. Colon is having more difficulty with word finding. I will make Dr. Toscano aware. Mrs. Colon also discussed Mr. Colon's anxiety. She shared that Mr. Colon does not want to take medication for anxiety because he does not want people to think he is crazy. I explained to Mr. Colon that it is his choice but that the purpose of the anxiety medication is to calm him, it is not meant to be used for craziness. Mrs. Colon also mentioned that Mr. Colon experiences anxiety when there are changes in their schedule. I shared with Mr. Colon that anxiety is not a good feeling and that the medication could help alleviate that feeling. Mrs. Colon shared that Mr. Colon is having more trouble with technology. Before if she was out with a friend for coffee, Mr. Colon could call her to remind him where she was. But now he is having trouble finding his phone or using it. After talking with a colleague, I am going to share with MrAndres and Mrs. Colon that there are phones on the market that may be easier for Mr. Colon to use. Mr. Colno denies having experienced any of the following worsened or new symptoms of: Vision changes Headaches Balance difficulties or falls Dizziness Nausea and/or vomiting Fatigue Confusion Seizure-like activity (convulsions, rhythmic twitching of arm/leg/face muscles, behavioral arrest of 15 seconds - few minutes, prolonged looking to the side) Arm or leg weakness or numbness Trouble speaking or getting words out Any other symptoms not listed I stressed the importance that if there are any changes between now and the time of his infusion, that they need to notify us. All questions were answered. and Mrs. Colon will reach out to our office with questions or concerns as needed. documented in this encounter Plan of Treatment Upcoming Encounters Date Type Department Care Team (Late st Contact Info) Description 08/09/2025 11:45 AM CDT Infusion Department of Infusion Therapy in [address] [address] Lobito Toscano M.D., Ph.D. [address] [place] [phone] 08/23/2025 10:15 AM CDT Infusion Department of Infusion Therapy in [address] [address] Lobito Toscano M.D., Ph.D. [address] [place] [phone] 09/06/2025 10:30 AM CDT Infusion Department of Infusion Therapy in [address] [address] Lobito Toscano M.D., Ph.D. [address] [place] [phone] 09/20/2025 10:15 AM CABLE SYSTEMS INSTALLER Infusion Department of Infusion Therapy in [address] [address] Lobito Toscano M.D., Ph.D. 200 [place] [phone] 10/04/2025 10:00 AM [facility] Infusion Department of Infusion Therapy in [place], [place] [address] [facility] [address] Lobito Toscano M.D., Ph.D. 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
--- OUTSIDE RECORDS SUMMARY | 2025-07-26 10:15 | XMS_ITS | Encounter Summary ---
Author Organization [facility] Address [address] [place] [address] Care Team Providers Care External Relations Manager Name Role Phone Elsewhere, Pcp Primary Care [...] 1 MG Lobito Toscano M.D., Ph.D. [address] [place] [phone] Phone: tel: fax: Department of Neurology in [place], [place] 200 [place] [address] Phone: tel: fax: Referral ID Status Reason Start Date Expiration Date V isits Requested Visits Authorized [id number] Authorized 03/09/2024 10/04/2025 30 40 Encounter Details Date Type Department Care Team (Late st Contact Info) Description 07/26/2025 10:15 AM CDT Infusion Department of Infusion Therapy in [place], [place] [address] [place] [address] [place] [address] Lobito Toscano M.D., Ph.D. 200 [place] [phone] Mild Neurocognitive Disorder Due To Alzheimer's Disease [...] oz pur e alcohol) very occasional drinker [facility] Utilities Answer Date Recorded In the past 12 months has e [email or web address], gas, oil, or water [employer] threatened to shut off services in your [...] your living situation today? I have a [facility] place to live 03/14/2025 Education Answer Date Recorded What is the highest level of school you have completed or the highest degree you have received? Master's degree (e.g., MA, MS, Jacob, MEd, DIRECTOR OF EARLY CHILDHOOD EDUCATION, JULIA) 03/21/2022 Sex and Gender Information Value [...] Body Mass Index 25.37 01/12/2025 5:56 PM DRUM SPRAYER documented in this encounter Plan of Treatment Upcoming Encounters Date Type Department Care Team (Late st Contact Info) Description 08/09/2025 11:45 AM CDT Infusion Department of Infusion Therapy in [address] [address] Lobito Toscano M.D., Ph.D. [address] [place] [phone] 08/23/2025 10:15 AM CDT Infusion Department of Infusion Therapy in [address] [address] Lobito Toscano M.D., Ph.D. [address] [place] [phone] 09/06/2025 10:30 AM CDT Infusion Department of Infusion Therapy in [place], [place] [address] [place] [address] Lobito Toscano M.D., Ph.D. [address] [place] [phone] 09/20/2025 10:15 AM DRUM SPRAYER Infusion Department of Infusion Therapy in [address] [address] Lobito Toscano M.D., Ph.D. [address] [place] [phone] 10/04/2025 10:00 AM DRUM SPRAYER Infusion Department of Infusion Therapy in [address] [address] Lobito Toscnao M.D., Ph.D. [address] [place] [phone] documented as of this encounter Visit Diagnoses [...] mL documented in this encounter Care Teams External Relations Manager Relationship Specialty Start Date End Date Elsewhere, Pcp PCP - General Internal Medicine 01/12/25 documented as of this encounter
[2025-08-07] VITALS (21 sets, daily range): BP systolic 130–164; BP diastolic 86–112; PULSE 45–60; RESP 12–22; TEMP 36.4; O2SAT 92–96; BMI 25.7
--- NOTE | 2025-08-07 08:11 | CRLHL7_ITS ---
For Patients: As a result of the Century Cures Act, medical imaging exams and procedure reports are released immediately into your electronic medical record. You may view this report before your referring provider. If you have questions, please contact your health care provider. Indication: Throat swelling, difficulty swallowing, history of tonsillectomy and Zenker`s diverticulum Technique: Volumetric multidetector CT images of the cervical soft tissues were obtained after the administration of low osmolar intravenous contrast. 88 cc Isovue 370 low osmolar intravenous contrast Comparison: None available. Findings: The partially visualized brain parenchyma is normal in attenuation without evidence of abnormal enhancement. The orbits and their contents are within normal limits. The paranasal sinuses are clear. The mastoid air cells are clear. There is mild edema seen within the uvula. Otherwise the nasopharynx is grossly unremarkable. The oropharynx is unremarkable. The hypopharynx is clear. The deep spaces of the neck are otherwise preserved. The vocal folds are nonthickened with symmetrical appearance. Somewhat nodular appearance of the left thyroid lobe is appreciated. There is no evidence of pathologically enlarged cervical lymph node. The jugular veins are patent. The carotid arteries demonstrate no significant atherosclerotic narrowing. The lung apices are clear. The cervical vertebral body heights are grossly maintained with likely chronic deformity of the superior C6 and C7 levels. There is mild facet arthrosis. Impression: 1. Mild focal edema seen within the uvula. Otherwise grossly unremarkable pharynx without evidence of additional edema, rim enhancing fluid collection or pathologic lymph node. Please note that all CT scans at this facility use dose modulation, iterative reconstruction, and/or weight-based dosing when appropriate to reduce radiation dose to as low as reasonably achievable. Dictated by Wan Solis MD @ 08/07/2025 9:40:32 AM (Electronically Signed)
--- OUTSIDE RECORDS SUMMARY | 2025-08-07 08:20 | XMS_ITS | Encounter Summary ---
Author Organization [facility] Address [address] [place] [address] Care Team Providers Care Putty Patcher Name Role Phone Elsewhere, Pcp Primary Care Provider Unavailabl e Encounter Details Date Type Department Care Team (Latest Contact Info) Description 01/12/2025 Intake [facility] Social History Tobacco Use Types Packs/Day Years Used Date Smoking Tobacco: Never Passive Smoke Exposure: Never Smokeless Tobacco: Never Alcohol Use Standard Drinks/Week Comments Not Currently 0 (1 standard drink = 0.6 oz pur e alcohol) [facility] Utilities Answer Date Recorded In the past 12 months has e electric, gas, oil, or water [employer] threatened to shut off services in your [...] your living situation today? I have a [facility] place to live 03/14/2025 Education Answer Date Recorded What is the highest level of school you have completed or the highest degree you have received? Master's degree (e.g., MA, MS, Jacob, MEd, COMPUTER NETWORKING INSTRUCTOR, JULIA) 03/21/2022 Sex and Gender Information Value Date Recorded Sex Assigned at Male 03/18/2022 9:01 AM CDT Legal Sex Male 1:04 PM CDT Gender Identity Male 03/18/2022 9:01 AM CDT Sexual Orientation Straight 03/18/2022 9: 01 AM CDT documented as of this encounter Plan of Treatment Upcoming Encounters Date Type Department Care Team (Late st Contact Info) Description 08/09/2025 11:45 AM CDT Infusion Department of Infusion Therapy in [address] [address] Lobito Toscano M.D., Ph.D. [address] [place] [phone] 08/23/2025 10:15 AM CDT Infusion Department of Infusion Therapy in [address] [address] Lobito Toscano M.D., Ph.D. [address] [place] [phone] 09/06/2025 10:30 AM CDT Infusion Department of Infusion Therapy in [place], [place] [address] [place] [address] Lobito Tocsano M.D., Ph.D. [address] [place] [phone] 09/20/2025 10:15 AM AIR SAMPLING AND MONITORING Infusion Department of Infusion Therapy in [address] [address] Lobito Toscano M.D., Ph.D. [address] [place] [phone] 10/04/2025 10:00 AM AIR SAMPLING AND MONITORING Infusion Department of Infusion Therapy in [address] [address] Lobito Toscano M.D., Ph.D. [address] [place] [phone] documented as of this encounter Visit Diagnoses Not on filedocumented in this encounter Additional Health Concerns Infection Onset Date Last Indicated Resolved Time COVID19 Pending 01/12/2025 01/12/2025 01/12/2025 6 :23 PM AIR SAMPLING AND MONITORING documented as of this encounter Care Teams Putty Patcher Relationship Specialty Start Date End Date Elsewhere, Pcp PCP - General Internal Medicine 01/12/25 documented as of this encounter
--- OUTSIDE RECORDS SUMMARY | 2025-08-07 08:20 | XMS_ITS | Clinical Summary ---
Author Organization [employer] [facility] Address [address] [place] [address] Care Team Providers Care Experimental Rocketsled Mechanic Name Role Phone Christian Sommers MD Unavailable [phone] Camron Schmid Unavailable Unavailable Chiquis Pickett MD Unavailable [phone] Richmond Anthony MD Primary Care Provider Allergies Active Allergy Reactions Criticality Noted Date Comments Pollen Extracts Cough 03/25/2022 Runny nose Medications latanoprost (XALATAN) 0.005 % ophthalmic solution Place 1 Drop into both eyes at bedtime. 05/29/20 11 Active medication order composer Cyclosporine in Klarity PF Emulsion 0.1% Ophthalmic Instill 1 drop into both eyes twice daily. 0 10/09/20 20 Active brimonidine (ALPHAGAN) 0.2 % ophthalmic solution INSTILL 1 DROP IN BOTH EYES DAILY 05/15/20 22 Active timoloL maleate (TIMOPTIC) 0.5 % ophthalmic solution INSTILL 1 DROP IN BOTH EYES DAILY 05/15/20 22 Active lisinopriL 10 mg tabletIndication s:Essential hypertension Take 1 Tablet (10 mg) by mouth once daily. 90 Tablet 3 03/21/20 25 Active hydroCHLOROthiaz cailin 25 mg tabletIndication s:Essential hypertension TAKE 1 TABLET BY MOUTH EVERY DAY 90 Tablet 3 06/16/20 25 Active omeprazole (PRILOSEC) 20 mg Delayed-Release capsuleIndicatio ns:Chronic GERD TAKE 1 CAPSULE BY MOUTH EVERY DAY BEFORE MEALS 90 Capsule 2 06/16/20 25 Active sertraline (ZOLOFT) 25 mg tabletIndication s:Anxiety Take 1 Tablet (25 mg) by mouth once daily in the morning. 30 Tablet 1 06/13/20 25 025 Discontin ued(*Remedios ent states no longer taking) Active Problems Problem Noted Date Diagnosed Date Premature atrial contraction s: 4.25% burden by 30-day monitor 01/202502/19/2025 Dementia in Alzheimer's disease 04/11/2024 Exudative age-related macula r degeneration, left eye, with active choroidal neovascularization 04/11/2024 Left bundle branch block 03/27/2022 Adenomatous colon polyp 01/15/2017 Overview (01/20/2022): Colonoscopy 01/2017 polyp repeat in 5 years Colonoscopy 01/2022 TA, repeat in 7 years History of prostate cancer 05/10/2007 Overview (05/10/2007): s/p radical prostatectomy Rosacea 05/10/2007 Unspecified essential hypertension 05/10/2007 CHL (conductive hearing loss) Resolved Problems Problem Noted Date Diagnosed Date Resolved Date Hyperlipidemia, unspecified 09/02/2016 05/01/2021 Macular degeneration 024 Overview (05/29/2011): bilateral; some vision loss R eye Hyperplastic colon polyp 08/2017 Encounters Date Type Department Care Team Description 06/14/2025 Refill [facility] [address] [place] [address] Richmond Anthony MD Refill Request (Hydrochlorothiazide, Omeprazole) 05/09/2025 1:15 PM CDT Office Visit [facility] [address] [place] [address] Richmond Anthony MD Preoperative Exam (DOS: 05/22/2025, left eye cataract, Dr. Atkins, [facility]) 05/09/2025 Travel from Last 3 Months Immunizations Immunization Administration Dates Next Due COVID-19 VACCINE SPIKEVAX (M ODERNA 50MCG/0.5ML) 12YO+ PFS 05/09/2025,09/15/2024,04/11/2024,08/20 Influenza, High-dose Inactivated 020,09/02/2016,08/26/2015,08/09 Influenza, IIV3 (Age 6-35 mos) 09/02/2010,2008 Influenza, IIV3 (Age >=3 years) 07/20/2013,07/08 Influenza, Inactivated AIIV4 (Age 65+ Years) Preserv Free 08/20/2023,10/16/2022,11/10/2021 Influenza, Inactivated IIV3 (Age 65+ Years) Preserv Free 10/03/2019,09/14/2018,09/09/2017 Pneumococcal Conj 20-valent (Prevnar 20) 11/12/2022 Pneumococcal Poly,23-Valent (Pneumovax) 03/08/2009 Pneumococcal conj 13-Valent (Prevnar 13) 08/26/2015 RSV, Recombinant ADJ Reconst ituted (Arexvy 120MCG/0.5mL) 10/04/2023 Td (Age >=7 Years) 06/30/2005,07/09/1995 Td, Preservative Free (age >= 7 Years) 5 Tdap 10/04/2023,07/08/2012 Zoster (Shingrix-RZV, recombinant) 02/27/2019, Zoster (Zostavax-ZVL, live) 09/27/2006 Family History Medical History Relation Name Comments Cancer-prostate Brother 4 Cancer-prostate Brother 5 TWIN Other Brother 5 macular degener ation TWIN Cancer-prostate Brother 6 Good Health Daughter 2 Cancer-prostate Father Diabetes Mother Other Son 2 nasal polyps Anesthesia Problem No Family History Relation Name Status Comments Brother 1 Alive Brother 2 Alive Brother 3 Alive Brother 4 Brother 5 Brother 6 Alive Brother 7 Alive Daughter 1 Alive Daughter 2 Father (Age 70) Mother (Age 80s) Sister 1 Alive Sister 2 Alive Son 1 Alive Son 2 Social History Tobacco Use Types Packs/Day Years Used Date Smoking Tobacco: Never Smokeless Tobacco: Never Tobacco Cessation:Counseling Given: No Alcohol Use Standard Drinks/Week Comments Yes 0 (1 standard drink = 0.6 oz pure alcohol) rare; glass of wine a couple times a year PHQ-2 Answer Date Recorded PHQ-2 TOTAL SCORE 0 07/03/2024 Social Connections Answer Date Recorded Do you often feel lonely or isolated from those around you? 0 07/03/2024 Financial Resource Strain Answer Date R ecorded Difficulty of Paying Living Expenses 3 07/03/2024 Difficulty of Paying Living Expenses Not on file 07/03/2024 Food Insecurity Answer Date Recorded Do you worry your food will run out before you are able to buy more? 1 07/03/2024 Transportation Needs Answer Date Record ed Does lack of transportation keep you from medica l appointments? 1 07/03/2024 Does lack of transportation keep you from work, meetings or getting things that you need? 1 07/03/2024 Housing Stability Answer Date Recorded What is your housing situation today? 1 07/03/2024 Utilities Answer Date Recorded Do you have trouble paying f or utilities (for example, heat, electricity, water, phone)? 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 Gender Identity Not on file Sexual Orientation Not on file Occupation Industry Job Start Date Job End Date Not on file Not on file Not on file Not on file Obstetrics History Last Filed Vital Signs Vital Sign Reading Time Taken Comments Blood Pressure 138/85 05/09/2025 1:13 PM CDT Pulse 65 05/09/2025 1:13 PM CDT Temperature 36.5 C (97.7 F) 10/16/2022 2:47 PM CROSS COUNTRY COACH Respiratory Rate 12 11/23/2019 9:59 AM CROSS COUNTRY COACH Oxygen Saturation 95% 05/09/2025 1:13 PM CDT Inhaled Oxygen Concentration - - Weight 79.8 kg (176 lb) 05/09/2025 1:13 PM CDT Height 176.2 cm (5' 9.37) 05/09/2025 1:13 PM CD T Body Mass Index 25.71 05/09/2025 1:13 PM CDT Plan of Treatment Health Maintenance Due Date Last Done Comments Depression screening for age 12+ 07/03/2025 07/03/2024, 11/14/2022, 11/12/2022, Additional history exists Medicare Wellness for age 65+ 07/04/2025 07/03/2024, 11/12/2022, 11/10/2021, Additional history exists Influenza Vaccine (#1) 2025 , 10/16/2022, 11/10/2021, Additional history exists BMI (ht and wt on same day) for age 18+ 05/09/2026 05/09/2025, 07/03/2024, 11/12/2022, Additional history exists Tetanus booster 10/04/2033 10/04/2023, 06/10, 06/30/2005, Additional history exists Zoster (shingles) series for age 50+ Completed 02/27/2019, 12/13/2018, 09/27/2006 Pneumococcal series for age 50+ Completed 11/12/2022, 08/26/2015, 03/08/2009 RSV vaccine for adults or Completed 10/04/2023 COVID-19 vaccine series Completed 05/09/20, 09/15/2024, 04/11/2024, Additional history exists Hepatitis B series for 19+ Aged Out N o longer eligible based on patient's age to complete this topic Medical Devices Implanted Type Area Retail Office Associate Device Identifier Shelf Expiration Date Model / Serial / Lot Implnt Porp 2mm Centered Titan [id number] - [id number] Implanted:Qty: 1 on 11/30/2016 by Junito Philip MD at [facility] Left: Ear [employer] 01/19/2026 [id number] / / [id number] Insurance MEDICARE PART B HB ONLY BLUE CROSS MEDICARE ADVANTAGE MR MEDICARE PART A HB ONLY Advance Directives * Full Code (Latest Code Status on File) Date Activated Date Inactivated Comments 11/30/2016 6:44 AM 11/30/2016 2:05 PM Care Teams Experimental Rocketsled Mechanic Relationship Specialty Start Date End Date Richmond Anthony MD [address] [place] [address] PCP - General Family Practice 11/10/21 Christian Sommers MD [address] [place] [address] Gastroenterology 07/20/13 Camron Schmid Cartographic Designer 07/20/13 Chiquis Pickett MD Ophthalmology Surgery 07/20/13
--- OUTSIDE RECORDS SUMMARY | 2025-08-07 08:20 | XMS_ITS | Clinical Summary ---
Author Organization [facility] Address [address] [place] [address] Care Team Providers Care Last Putter Away Name Role Phone Elsewhere, Pcp Primary Care Provider Unavailabl e Source Comments Patient records contain information from all sites at [facility]. For routine questions regarding patient records, call [phone] during business hours, M-F 8:00 AM - 5:00 PM Central Time. Record requests for emergency care only can be directed to [phone] at any time.[facility] Allergies Active Allergy Reactions Criticality Noted Date Comments Alteplase Other (see comments) High 04/26/2025 Patient currently on anti-amyloid therapy (e.g., lecanemab, donanemab). Consider obtaining an urgent brain MRI and Neurology consult to assess for ARIA before giving this medication. Thrombolytic medications increase the risk of intracranial bleeding and even in the setting of anti-amyloid therapy. Pollen Extracts Cough 03/25/2022 Runny nose Tenecteplase Other (see comments) High 04/26/2025 Patient currently on anti-amyloid therapy (e.g., lecanemab, donanemab). Consider obtaining an urgent brain MRI and Neurology consult to assess for ARIA before giving this medication. Thrombolytic medications increase the risk of intracranial bleeding and even in the setting of anti-amyloid therapy. Medications * This document contains information received from the source organization and may not represent a complete record from that organization. latanoprost (XALATAN) 0.005 % ophthalmic solution INSTILL ONE DROP INTO EACH EYE ONCE DAILY AFTER SUPPER 2 Active hydroCHLOROthia zide (HYDRODIURIL) 25 mg tablet Take 25 mg by mouth daily. 2 Active cyclosporine-ch ondroit sulf A (cycloSPORINE in Klarity) 0.1-0.25 % drops Administer 1 drop into both eyes 2 (two) times a day. 0 Active timolol (TIMOPTIC) 0.5 % ophthalmic solution Administer 1 drop into both eyes daily. 2 Active carboxymethylce llulose (REFRESH TEARS) 0.5 % ophthalmic solution Administer 1 drop into both eyes 3 (three) times a day as needed for dry eyes. Active omeprazole (PriLOSEC) [address] capsule TAKE 1 CAPSULE BY MOUTH EVERY MORNING BEFORE BREAKFAST 90 capsule 11 3 Active donepeziL (Aricept) 10 mg tablet Take 1 tablet (10 mg total) by mouth daily. 90 tablet 3 5 Active lisinopriL 10 mg tablet Take 10 mg by mouth daily. 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 Unspecified Dementia Unspeci fied Severity Without Behavioral Disturbance Psychotic disturbance Mood Disturbance And Anxiety 02/17/2024 Degeneration Macular 08/17/2022 Overview (08/17/2022): bilateral; some vision loss R eye Gastroesophageal Reflux Disease Without Esophagi tis 08/17/2022 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 Martin, Lori L, R.N. 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 Anderlik, Amanda M, R.N. 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 (HCC); Degeneration Macular from Last 3 Months Family History Medical History Relation Name Comments Prostate cancer Brother 1 Reddy Ghosh, Linwood Colon Father of prostate cancer;one brother of prostate cancer Hypertension Brother 2 Linwood Colon; Nazia Colon Hypertension Daughter Giovana Johansen Alcohol abuse Father's Brother Selvin Carloson Alcohol abuse Mother's Brother Michael Keshawn Parkinson disease Paternal Grandmother Natalia Carloson Hypertension Sister Syed Leahy; Hypertension Son Steven Colon Relation Name Status Comments Brother 1 Reddy Ghosh, Linwood Ross n Brother 2 Linwood Colon; Emil Colon Daughter Giovana Johansen Father's Brother Selvin Colon Mother's Brother Michael Liao Paternal Grandmother Natalia Colon Sister Syed Leahy; Son Steven Colon Social History Tobacco Use Types Packs/Day Years Used Date Smoking Tobacco: Never Passive Smoke Exposure: Never Smokeless Tobacco: Never Tobacco Cessation:Counseling Given: Not Answered Alcohol Use Standard Drinks/Week Comments Not Currently 0 (1 standard drink = 0.6 oz pur e alcohol) very occasional drinker [facility] Utilities Answer Date Recorded In the past 12 months has e [employer], gas, oil, or water [employer] threatened to shut off services in your [...] your living situation today? I have a [facility] to live 03/14/2025 Education Answer Date Recorded What is the highest level of school you have completed or the highest degree you have received? Master's degree (e.g., MA, MS, Jacob, MEd, PESTICIDE APPLICATOR, JULIA) 03/21/2022 Sex and Gender Information Value Date Recorded Sex Assigned at Male 03/18/2022 9:01 AM CDT Legal Sex Male 1:04 PM CDT Gender Identity Male 03/18/2022 9:01 AM CDT Sexual Orientation Straight 03/18/2022 9: 01 AM CDT Last Filed Vital Signs Vital Sign Reading Time Taken Comments Blood Pressure 90/61 07/26/2025 12:15 PM CDT Pulse 52 07/26/2025 12:15 PM CDT Temperature 36.3 C (97.3 F) 07/26/2025 10:30 AM CDT Respiratory Rate 18 07/26/2025 12:1 5 PM CDT Oxygen Saturation 97% 01/12/2025 10: 00 PM HOSPITALITY HOUSEKEEPER Inhaled Oxygen Concentration - - Weight 80.2 kg (176 lb 12.9 oz) 025 10:30 AM CDT Height 177.8 cm (5' 10) 01/12/2025 5:56 PM HOSPITALITY HOUSEKEEPER Body Mass Index 25.37 01/12/2025 5:56 PM HOSPITALITY HOUSEKEEPER Plan of Treatment Upcoming Encounters Date Type Department Care Team (Late st Contact Info) Description 08/09/2025 11:45 AM CDT Infusion Department of Infusion Therapy in [address] [address] Lobito Toscano M.D., Ph.D. [address] [place] [phone] 08/23/2025 10:15 AM CDT Infusion Department of Infusion Therapy in [address] [address] Lobito Toscano M.D., Ph.D. [address] [place] [phone] 09/06/2025 10:30 AM CDT Infusion Department of Infusion Therapy in [address] [address] Lobito Toscano M.D., Ph.D. [address] [place] [phone] 09/20/2025 10:15 AM HOSPITALITY HOUSEKEEPER Infusion Department of Infusion Therapy in [place], [place] [address] [place] [address] Lobito Toscano M.D., Ph.D. [address] [place] [phone] 10/04/2025 10:00 AM HOSPITALITY HOUSEKEEPER Infusion Department of Infusion Therapy in [place], [place] [address] [place] [address] Lobito Toscano M.D., Ph.D. [address] [place] [phone] Health Maintenance Due Date Last Done Comments Office Visit for Blood Pressure Check / Re-check 1942 Influenza Vaccine (#1) 2025 , 10/16/2022, 11/10/2021, Additional history exists Creatinine Level (Kidney Function Test) 01/12/2026 01/12/2025, 07/03/2024, 04/11/2024, Additional history exists Potassium Level 01/12/2026 01/12/2025, 03/0 05/2025, 07/03/2024, Additional history exists Sodium Level 01/12/2026 01/12/2025, 03/0 05/2025, 07/03/2024, Additional history exists DTaP,Tdap,and Td Vaccines (3 - Td or Tdap) 10/04/2033 10/04/2023, 07/08/2012, 06/30/2005 Zoster Vaccines Completed 02/27/2019, 020 03/2019, 09/27/2006 Pneumococcal vaccine (50+ years) Completed 11/12/2022, 08/26/2015, 03/08/2009 RSV vaccine - (32-36 weeks) or 60+ years Completed 10/04/2023 COVID-19 Vaccine Completed 05/09/2025, 06/2024, 04/11/2024, Additional history exists Fall Risk Screen (Annual) Completed 07/26/2025 IPV Vaccines Aged Out No longer eligi ble based on patient's age to complete this topic Procedures Procedure Name Priority Date/Time Associated Diagnosis Comments VBG & LYTES CG8+, POCT, B STAT 01/12/2025 5:40 PM HOSPITALITY HOUSEKEEPER BASIC METABOLIC PANEL, S/P STAT 01/12/2025 5:40 PM HOSPITALITY HOUSEKEEPER from Last 3 Months or Most Recently Relevant to Health Maintenance Results * (ABNORMAL) Venous Blood Gas and Electrolytes CG8+, POCT (01/12/2025 5:40 PM HOSPITALITY HOUSEKEEPER) [facility] Sample Site, POCT Venstick 01/12/2025 6:14 PM HOSPITALITY HOUSEKEEPER PCLX Comment: ----ADDITIONAL INFORMATION---- Performed at the Point of Care pH, Venous, POCT, B 7.31(L) 7.32 - 7.43 01/12/2025 6:14 PM HOSPITALITY HOUSEKEEPER PCSM Comment: ----ADDITIONAL INFORMATION---- Performed at the Point of Care pCO2, Venous, POCT, B 63(H) 41 - 51 mm Hg 01/12/2025 6:14 PM HOSPITALITY HOUSEKEEPER PCSM Comment: ----ADDITIONAL INFORMATION---- Performed at the Point of Care pO2, Venous, POCT, B <18 Not Applicable mm Hg 01/12/2025 6:14 PM HOSPITALITY HOUSEKEEPER PCSM Comment: ----ADDITIONAL INFORMATION---- Performed at the Point of Care Base Excess, Venous, POCT, B 5 Not Applicable mmol/L 01/12/2025 6:14 PM HOSPITALITY HOUSEKEEPER PCSM Comment: ----ADDITIONAL INFORMATION---- Performed at the Point of Care HCO3, Venous, POCT, B 32 Not Applicable mmol/L 01/12/2025 6:14 PM HOSPITALITY HOUSEKEEPER PCSM Comment: ----ADDITIONAL INFORMATION---- Performed at the Point of Care Sodium, POCT, B 142 135 - 145 mmol/L 01/12/2025 6:14 PM HOSPITALITY HOUSEKEEPER PCLX Comment: ----ADDITIONAL INFORMATION---- Performed at the Point of Care Potassium, POCT, B 4.2 3.6 - 5.2 mmol/L 01/12/2025 6:14 PM HOSPITALITY HOUSEKEEPER PCLX Comment: ----ADDITIONAL INFORMATION---- Performed at the Point of Care Calcium, Ionized, POCT, B 5.00 4.65 - 5.30 mg/dL 01/12/2025 6:14 PM HOSPITALITY HOUSEKEEPER PCLX Comment: ----ADDITIONAL INFORMATION---- Performed at the Point of Care Glucose, POCT, B 93 70 - 140 mg/dL 01/12/2025 6:14 PM HOSPITALITY HOUSEKEEPER PCLX Comment: ----ADDITIONAL INFORMATION---- Performed at the Point of Care Hematocrit, POCT, B 53.0(H) 38.3 - 48.6 % 01/12/2025 6:14 PM HOSPITALITY HOUSEKEEPER PCLX Comment: ----ADDITIONAL INFORMATION---- Performed at the Point of Care Blood (Blood, Venous) 01/12/2025 5:40 PM HOSPITALITY HOUSEKEEPER 01/12/2025 5:40 PM HOSPITALITY HOUSEKEEPER us Josué Syed M.D. LAB POCT ORDERABLES - DEVICE Fin al Result POC [facility] [address] [place] [address], [facility] PCLX [facility] POC [address] [place] [address] PCSM [facility] POC [address] [place] [address] * Basic Metabolic Panel (01/12/2025 5:40 PM HOSPITALITY HOUSEKEEPER) Pathologist [facility] Potassium, P CANCELED mmol/L 01/12/2025 8:05 PM HOSPITALITY HOUSEKEEPER [facility] Comment: Specimen was hemolyzed. Redraw has been ordered and is in progress. Result canceled by the ancillary. Sodium, P 140 135 - 145 mmol/L 01/12/2025 6:34 PM HOSPITALITY HOUSEKEEPER [facility] Chloride, P 102 98 - 107 mmol/L 01/12/2025 6:34 PM HOSPITALITY HOUSEKEEPER [facility] Bicarbonate, P 26 22 - 29 mmol/L 01/12/2025 6:34 PM HOSPITALITY HOUSEKEEPER [facility] Anion Gap, P 12 7 - 15 01/12/2025 6:34 PM HOSPITALITY HOUSEKEEPER [facility] BUN (Blood Urea Nitrogen), P 23 8 - 24 mg/dL 01/12/2025 6:34 PM HOSPITALITY HOUSEKEEPER [facility] Creatinine 1.08 0.74 - 1.35 mg/dL 01/12/2025 6:34 PM HOSPITALITY HOUSEKEEPER [facility] Estimated GFR (eGFR) 69 >=60 mL/min/BSA 01/12/2025 6:34 PM HOSPITALITY HOUSEKEEPER [facility] Comment: Estimated GFR calculated using the 2020 CKD_EPI creatinine equation. Calcium, Total, P 9.5 8.8 - 10.2 mg/dL 01/12/2025 6:34 PM HOSPITALITY HOUSEKEEPER [facility] Glucose, P 90 70 - 140 mg/dL 01/12/2025 6:34 PM HOSPITALITY HOUSEKEEPER [facility] Blood (Blood, Venous) 01/12/2025 5:40 PM HOSPITALITY HOUSEKEEPER 01/12/2025 6:11 PM HOSPITALITY HOUSEKEEPER Josué Syed M.D. LAB BLOOD ADD-ON Final Result [facility] [address] [place] [address], [facility] STMA [facility] [address] [place] [address] from Last 3 Months or Most Recently Relevant to Health Maintenance Insurance [facility] Advance Directives For more information, please contact: [phone] Documents on File Type Date Recorded Patient Photo Producer Expl anation Advance Directives 08/20/2022 9:02 AM Frances ArizmendiZita Candie Colon HCPOA/ADVOCATE/AGENT/R EPRESENTATIVE/SURROGAT E Healthcare Agents on File Name Relationship Healthcare Agent Relationship Communication Frances Colon Spouse Health Care Agent [email or web address] [email or web address] PaganGiovana Dunbar Child First Alternate Health Care Agent Carmine Colon Child First Alternate Health Care Agent Care Teams Last Putter Away Relationship Specialty Start Date End Date Elsewhere, Pcp PCP - General Internal Medicine 01/12/25
[2025-08-07] MEDS: EPINEPHrine 0.3 MG PEN IM (08:21)
[2025-08-07] MEDS: METHYLPREDNISOLONE SOD SUCC 62.5 MG/ML (125) 125 MG IVP (08:21)
[2025-08-07 08:22] LABS: Hematocrit* 49.0 % (37.0-53.0); Hemoglobin* 16.3 gm/dL (13.5-17.5); Immature Granulocytes Abs Auto 0.02 K/uL (0.00-0.30); Immature Granulocytes Pct Auto 0.4 %; Lymphocytes Absolute Auto 1.27 K/uL (0.90-2.90); Mean Corpuscular HGB Conc 33 gm/dL (32-36); Mean Corpuscular Hemoglobin 31 pg (26-34); Mean Corpuscular Volume 94 fL (80-100); RDW Coefficient of Variation % 13.4 % (11.5-15.5); Red Blood Count* 5.23 m/uL (4.30-5.90); White Blood Count* 5.57 K/uL (4.50-11.00)
[2025-08-07 08:32] LABS: Slide Review Reflex No
[2025-08-07 08:35] LABS: Chloride* 104 mmol/L (96-114); Potassium* 3.5 mmol/L (3.6-5.1); Sodium* 138 mmol/L (135-149)
--- NOTE | 2025-08-07 08:35 | ED_ITS ---
HPI - General Adult General Chief complaint: Allergic Reaction Stated complaint: Difficulty swallowing, Throat tightness Time Seen by Provider: 08/07/25 08:02 History of Present Illness HPI narrative: This 85-year-old male comes in with his because of some feeling of swelling in his throat that began upon awakening this morning. He has not had symptoms like this in the past. He does take lisinopril and did take his regular medicines this morning. He is also on an immune modulator for the past year and gets treatments every 2 weeks. His last treatment was about 10 days ago. This medicine is lacanemab. He states that he did sleep with the window open last night. He does not show any other sign of skin changes. His tongue appears normal but he does have swelling of his uvula. Related Data Home Medications ?Medication ?Instructions ?Recorded ?Confirmed hydrochlorothiazide 25 mg tablet 25 mg PO DAILY 08/07/25 latanoprost 0.005 % eye drops 1 drp ophthalmic (eye) Q PM 10/09/22 08/07/25 lisinopril 20 mg tablet 20 mg PO DAILY 10/09/2207/11 omeprazole 20 mg capsule,delayed 20 mg PO DAILY 08/07/25 release timolol maleate 0.5 % eye drops 1 drp ophthalmic (eye) DAILY 10/09/22 08/07/25 Allergies Allergy/AdvReac Type Severity Reaction Status Date / Time No Known Drug Allergies Allergy Verified 08/07/25 07:52 Review of Systems Status of ROS: Reports: 10 or more systems reviewed and unremarkable except as noted in History and below Narrative: Constitutional: No fevers, no weight gain or loss. Eyes: No discharge. No vision changes. HENT: No congestion, no sore throat, no ear pain. Sense of swelling in the back of his throat as described above. Cardiovascular: No chest pain, no palpitations. Respiratory: No shortness of breath, no wheezes, no cough. Gastrointestinal: No abdominal pain, no vomiting, no diarrhea. Genitourinary: No dysuria, no hematuria. Musculoskeletal: Normal range of motion. Skin: No rashes, no pruritis. Neurological: No dizziness, weakness, sensory change, speech change. Endo/Heme/Allergies: No bruising or bleeding. No polydipsia. Pysch: no suicidality, no anxiety, no insomnia. All other systems reviewed and are negative. [facility] Medical History Cervical spine arthritis ?M47.812 - Spondylosis without myelopathy or radiculopathy, cervical region (ICD-10) Dehydration ?E86.0 - Dehydration (ICD-10) Poor balance ?R26.89 - Other abnormalities of gait and mobility (ICD-10) Closed head injury ?S09.90XA - Unspecified injury of head, initial encounter (ICD-10) Left bundle branch block ?I44.7 - Left bundle-branch block, unspecified (ICD-10) Conductive hearing loss ?H90.2 - Conductive hearing loss, unspecified (ICD-10) Cataracts, bilateral ?H26.9 - Unspecified cataract (ICD-10) Glaucoma ?H40.9 - Unspecified glaucoma (ICD-10) Macular degeneration ?H35.30 - Unspecified macular degeneration (ICD-10) Hypertension ?I10 - Essential (primary) hypertension (ICD-10) Prostate cancer ?C61 - Malignant neoplasm of prostate (ICD-10) Surgical History History of tonsillectomy ?Z90.89 - Acquired absence of other organs (ICD-10) H/O mastoidectomy ?Z90.89 - Acquired absence of other organs (ICD-10) Status post removal of Zenker's diverticulum ?Z98.890 - Other specified postprocedural states (ICD-10) ?Z87.19 - Personal history of other diseases of the digestive system (ICD-10) History of esophagogastroduodenoscopy (EGD) ?Z98.890 - Other specified postprocedural states (ICD-10) History of colonoscopy ?Z98.890 - Other specified postprocedural states (ICD-10) H/O prostatectomy ?Z90.79 - Acquired absence of other genital organ(s) (ICD-10) Family History Brother Prostate cancer Father Prostate cancer Mother Diabetes Social History Narrative: Patient lives with his in [place]. His live independently. 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 He does not smoke. He rarely drinks alcohol. Code status is DNR. He does not use a walker or cane with ambulation. What is your current living situation?: I presently have a place to live Problems where you live: no known problems Problems where you live details: denies problems In the past 12 months, utilities in danger of being shut off: no In past 12 months, lack of transportation kept you from medical appts, meetings, work, or getting things needed for daily living: no In the past 12 mos, have been you worried that your food would run out before you had money to buy more?: never true In the past 12 mos, the food you bought just didn't last and you didn't have money to buy more?: never true Highest level of school completed/degree received: Master's degree Smoking Status: Never smoker Second hand tobacco smoke exposure: No How often do you have a drink containing alcohol: monthly or less Alcohol type details: one glass of wine every 5 months or so, very rarely socially AUDIT-C Alcohol total score: 1 Non-prescribed substance use: denies use Caffeine: Yes ([employer]a) How often does anyone, including family, friends and others, physically hurt you : never How often does anyone, including family, friends and others, insult or talk down to you: never How often does anyone, including family, friends and others, threaten you with harm: never How often does anyone, including family, friends and others, scream or curse at you: never service: No Exam Narrative: Exam Narrative: Constitutional: Well-developed, well-nourished, no acute distress. HEENT: Normocephalic, atraumatic. Oropharynx shows normal appearing tongue. He has a markedly swollen will feel but no surrounding edema. His airway is intact on visual exam. Neck: Normal range of motion. Nontender. Supple. Heart: Regular. No murmurs. Normal rate. Intact distal pulses. Lungs: Clear to auscultation. No chest discomfort. No wheezes, rhonchi, or rales. No stridor or difficulty breathing. Abdomen: Normal bowel sounds. Nontender. No rebound tenderness. Genitalia: Deferred. Back: No midline tenderness. Normal range of motion. Extremities: Normal range of motion. No injury. Skin: Intact. No rash. Warm. No erythema or pallor. Neurologic: No altered sensation. No weakness. Alert and oriented. Psychiatric: No suicidality. No anxiety or depression. No insomnia. Nursing notes and vitals signs are reviewed. Const: Vital Signs, click to edit/add: Vital Signs - 24 hr 08/07/25 07:45 08/07/25 08:06 08/07/25 08:15 Temperature 97.6 F Pulse Rate 54 L 50 L Pulse Rate [Pulse Oximeter] 60 Respiratory Rate 16 18 18 Blood Pressure Blood Pressure [Le ft Upper Arm] 131/88 Pulse Oximetry 92 96 93 Oxygen Delivery Me thod Room Air 08/07/25 08:30 08/07/25 08:32 08/07/25 08:33 Temperature Pulse Rate 57 L 56 L Pulse Rate [Pulse Oximeter] Respiratory Rate 22 21 20 Blood Pressure 155/97 H Blood Pressure [Le ft Upper Arm] Pulse Oximetry 96 96 Oxygen Delivery Me thod 08/07/25 08:45 08/07/25 09:05 08/07/25 09:06 Temperature Pulse Rate 55 L 50 L 50 L Pulse Rate [Pulse Oximeter] Respiratory Rate 22 18 20 Blood Pressure Blood Pressure [Le ft Upper Arm] Pulse Oximetry 94 96 96 Oxygen Delivery Me thod 08/07/25 09:09 08/07/25 09:15 08/07/25 09:30 Temperature Pulse Rate 54 L 47 L 54 L Pulse Rate [Pulse Oximeter] Respiratory Rate 17 15 17 Blood Pressure 164/112 H Blood Pressure [Le ft Upper Arm] Pulse Oximetry 95 94 96 Oxygen Delivery Me thod 08/07/25 09:32 08/07/25 09:45 Temperature Pulse Rate 50 L Pulse Rate [Pulse Oximeter] Respiratory Rate 17 21 Blood Pressure 163/94 H Blood Pressure [Le ft Upper Arm] Pulse Oximetry 95 Oxygen Delivery Me thod Course Vital Signs Vital signs: Initial Vital Signs Temperature 97.6 F 08/07/25 07:45 Temperature Source Temporal Artery Scan 08/07/25 07:45 Pulse Rate 60 08/07/25 07:45 Respiratory Rate 16 08/07/25 07:45 Blood Pressure 131/88 08/07/25 07:45 Blood Pressure Mean 102 08/07/25 07:45 Blood Pressure Position Sitting 08/07/25 07:45 Pulse Oximetry 92 08/07/25 07:45 Oxygen Delivery Method Room Air 08/07/25 07:45 Vital Signs Temperature 97.6 F 08/07/25 07:45 Pulse Rate 60 08/07/25 07:45 Respiratory Rate 16 08/07/25 07:45 Blood Pressure 131/88 08/07/25 07:45 Pulse Oximetry 92 08/07/25 07:45 Oxygen Delivery Method Room Air 08/07/25 07:45 Temperature 97.6 F 08/07/25 07:45 Pulse Rate 50 L 08/07/25 09:32 Respiratory Rate 21 08/07/25 09:45 Blood Pressure 163/94 H 08/07/25 09:32 Pulse Oximetry 95 08/07/25 09:32 Oxygen Delivery Method Room Air 08/07/25 07:45 Medications Administered Medications: Discontinued Medications Generic Name Dose Route Start Last Admin Trade Name Freq PRN Reason Stop Dose Admin Diphenhydramine HCl 50 mg 08/07/25 08:11 08/07/25 08:20 Diphenhydramine 50 Mg/Ml Inj IVP 08/07/25 08:12 50 mg ONCE ONE Administration Epinephrine HCl 0.3 mg 08/07/25 08:11 08/07/25 08:21 Epinephrine 0.3 Mg Pen IM 08/07/25 08:12 0.3 mg ONCE ONE Administration Methylprednisolone Sodium Succinate 125 mg 08/07/25 08:11 08/07/25 08:21 Methylprednisolone Sod Succ 62.5 Mg/Ml (125) IVP 08/07/25 08:12 125 mg ONCE ONE Administration Medical Decision Making [facility] Narrative Medical decision making narrative: This patient comes in with a swelling of his uvula but no other sign of angioedema and no abnormal vital signs. He did sleep with the window open last night and this may have caused some reaction triggering these symptoms. Additionally he does take lisinopril and an immune modulator which could have some suspicion for explaining these current symptoms. An IV was established and the patient did receive doses of Benadryl 25 mg, Solu-Medrol 125 mg. He also received epinephrine 0.[address] scan of his neck was obtained and shows mild swelling and a patent airway. I re-examined the patient after being here almost 4 hours and he is showing significant improvement. I advised the patient and his to check in with the infusion clinic regarding his immune modulator as a possible cause for this symptom. He is okay to be discharged home. He may wish to continue using antihistamine such as Rossy or Claritin for ongoing management. Lab Data Labs: Lab Results 08/07/25 Range/Units 08:00 WBC 5.57 (4.50-11.00) K/uL RBC 5.23 (4.30-5.90) m/uL Hgb 16.3 (13.5-17.5) gm/dL Hct 49.0 (37.0-53.0) % MCV 94 (80-100) fL MCH 31 (26-34) pg MCHC 33 (32-36) gm/dL RDW Coeff of [place] 13.4 (11.5-15.5) % Plt Count 254 (140-440) K/uL Neut % (Auto) 64.6 (42.0-72.0) % Lymph % (Auto) 22.8 (20-44) % [place] % (Auto) 7.0 (0.0-11.0) % Eos % (Auto) 4.3 (0.0-7.0) % Baso % (Auto) 0.9 (0.0-3.0) % Neut # (Auto) 3.60 (1.7-7.0) K/uL Lymph # (Auto) 1.27 (0.90-2.90) K/uL [place] # (Auto) 0.40 (0.00-0.90) K/UL Eos # (Auto) 0.24 (0.00-0.50) K/uL Baso # (Auto) 0.05 (0.00-0.30) K/uL Abs Immat Gran (auto) 0.02 (0.00-0.30) K/uL Imm/Tot Granulo (auto) 0.4 % Sodium 138 (135-149) mmol/L Potassium 3.5 L (3.6-5.1) mmol/L Chloride 104 (96-114) mmol/L Carbon Dioxide 27 (20-32) mmol/L Anion Gap 7 (7-15) mEq/L BUN 23 (7-30) mg/dL Creatinine 1.0 (0.5-1.5) mg/dL Estimated Creat Clear 57.79 Estimated GFR 75 ml/min Glucose 105 (60-115) mg/dL Calcium 9.1 (8.4-10.6) mg/dL Imaging Data CT Soft Tissue Neck: Radiologist's impression: Mild focal edema seen within the uvula. Otherwise grossly unremarkable pharynx without evidence of additional edema, rim enhancing fluid collection or pathologic lymph node. Discharge Plan Discharge Clinical Impression: Allergic reaction, Angioedema Patient Disposition: Home w/ Parent or Adult Condition: Improved Additional Instructions: Follow-up with infusion clinic regarding ongoing use of the immune modulating medicine. Use [id number] antihistamine such as Rossy, Claritin, or Zyrtec as needed and directed. Follow up with MD return if symptoms are worsening. Prescriptions: No Action latanoprost 0.005 % drops 1 drp ophthalmic (eye) QPM Patient Comments: BOTH EYES lisinopril 20 mg tablet 20 mg PO DAILY Patient Comments: TAKE 1 TABLET BY MOUTH EVERY DAY omeprazole 20 mg capsule,delayed release(DR/EC) 20 mg PO DAILY Patient Comments: hydrochlorothiazide 25 mg tablet 25 mg PO DAILY Patient Comments: timolol maleate 0.5 % drops 1 drp ophthalmic (eye) DAILY Patient Comments: BOTH EYES Follow Up/Referrals: Richmond Anthony MD [Primary Care Provider, [facility]] Stand Alone Forms: JumpIn Info Instructions
[2025-08-07 08:38] LABS: Anion Gap 7 mEq/L (7-15); Blood Urea Nitrogen* 23 mg/dL (7-30); Calcium* 9.1 mg/dL (8.4-10.6); Carbon Dioxide* 27 mmol/L (20-32); Creatinine* 1.0 mg/dL (0.5-1.5); Est. Creatinine Clearance* 57.79; Estimated Glomerular Filt Rate 75 ml/min; Glucose* 105 mg/dL (60-115)
== END 2025-08-07 11:14 | disposition home or self-care (01) ==
PROVIDERS: Emergency Provider Emergency Medicine Emergency Medical Services; PCP Family Medicine
DX: T78.3XXA Angioneurotic edema, initial encounter (principal)
CPT/HCPCS: 36415; 70491; 80048; 85025; 96374; 96375; 99284; 99285; J0169; J1200; J2919; Q9967

== ENCOUNTER 2025-09-09 10:51 | Emergency (ER) | payer MEDICARE, SELFPAY ==
--- OUTSIDE RECORDS SUMMARY | 2025-07-26 09:15 | XMS_ITS | Encounter Summary ---
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 200 [place] [address] Phone: tel: fax: Department of Neurology in [place], [place] 200 [place] [address] Phone: tel: fax: Referral ID Status Reason Start Date Expiration Date Visits Re quested Visits Authorized [id number] Closed 03/09/2024 10/04/2025 30 40 Encounter Details Date Type Department Care Team (Late st Contact Info) Description 07/26/2025 10:15 AM CDT Infusion Department of Infusion Therapy in [place], [place] [address] [place] [address] [place] [address] Lobito Toscano M.D., Ph.D. 200 [place] [phone] Mild Neurocognitive Disorder Due To Alzheimer's Disease [...] oz pur e alcohol) very occasional drinker [facility] Utilities Answer Date Recorded In the past 12 months has e [employer], gas, oil, or water [employer] threatened to shut off services in your [...] your living situation today? I have a [facility] place to live 03/14/2025 Education Answer Date Recorded What is the highest level of school you have completed or the highest degree you have received? Master's degree (e.g., MA, MS, Jacob, MEd, BASKET PERSON, JULIA) 03/21/2022 Sex and Gender Information Value Date Recorded Sex Assigned at Male 03/18/2022 9:01 AM CDT Legal Sex Male 1:04 PM CDT Gender Identity Male 03/18/2022 9:01 AM CDT Sexual Orientation Straight 03/18/2022 9: 01 AM CDT documented as of this encounter Last Filed Vital Signs Vital Sign Reading Time Taken Comments Blood Pressure 90/61 07/26/2025 12:15 PM CDT Pulse 52 07/26/2025 12:15 PM CDT Temperature 36.3 C (97.3 F) 07/26/2025 10:30 AM CDT Respiratory Rate 18 07/26/2025 12:1 5 PM CDT Oxygen Saturation - - Inhaled Oxygen Concentration - - Weight 80.2 kg (176 lb 12.9 oz) 025 10:30 AM CDT Height - - Body Mass Index 25.37 01/12/2025 5:56 PM FORM MAKER documented in this encounter Plan of Treatment Not on file documented as of this encounter Visit Diagnoses [...] 0.9% IVPB (Leqembi) 800 mg (rounded from 802 mg = 10 mg/kg 80.2 kg), intravenous, at 258 mL/hr, Administer over 60 Minutes, Once, On Paola 07/26/25 at 1100, For 1 dose, Do not shake. 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) New Bag 07/26/2025 10:58 AM CDT 800 mg 258 mL/hr NaCl 0.9% infusion 1-999 mL/hr, intravenous, As needed, Post Medications (Hazardous/Low Fluid Volume), Starting on Paola 07/26/25 at 1025, Infuse at the same rate as the medication until tubing cleared of medication, then discard.Indications:Unspecifi ed Dementia Unspecified Severity Without Behavioral Disturbance 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),Degeneration Macular New Bag 07/26/2025 12:04 PM CDT 258 mL/hr 258 mL/hr sodium chloride 0.9 % injection 3 mL 3 mL, intravenous, As needed, line care, Starting on Paola 07/26/25 at 1025, Prior to and following infusion and between multiple consecutive infusions.Indications:Unspeci fied Dementia Unspecified Severity Without Behavioral Disturbance 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
--- OUTSIDE RECORDS SUMMARY | 2025-08-15 13:30 | XMS_ITS | Encounter Summary ---
Author Organization [facility] Address [address] [place] [id number] Care Team Providers Care Social Director Name Role Phone Elsewhere, Pcp Primary Care Provider Unavailabl e Reason for Visit * Appointment Request (Routine) - Authorized Specialty Diagnoses / Procedures Referred By Ting mendes Referred To Contact Allergy and Immunology Referral ID Status Reason Start Date Expiration Date V isits Requested Visits Authorized [id number] Authorized 08/07/2025 11/07/2026 1 1 Encounter Details Date Type Department Care Team (Latest Contact Info) Description 08/15/2025 2:30 PM CDT Clinical Communication Virtual Review in [place], [place] [address] [place] [id number] Social History Tobacco Use Types Packs/Day Years Used Date Smoking Tobacco: Never Passive Smoke Exposure: Never Smokeless Tobacco: Never Alcohol Use Standard Drinks/Week Comments Not Currently 0 (1 standard drink = 0.6 oz pur e alcohol) very occasional drinker [facility] Utilities Answer Date Recorded In the past 12 months has e [employer], gas, oil, or water [employer] threatened to shut off services in your [...] money to buy more. Never true 03/14/20 Within the past 12 months, t he [...] your living situation today? I have a [facility] place to live 03/14/2025 Education Answer Date Recorded What is the highest level of school you have completed or the highest degree you have received? Master's degree (e.g., MA, MS, Jacob, MEd, [employer], JULIA) 03/21/2022 Sex and Gender Information Value Date Recorded Sex Assigned at Male 03/18/2022 9:01 AM CDT Legal Sex Male 1:04 PM CDT Gender Identity Male 03/18/2022 9:01 AM CDT Sexual Orientation Straight 03/18/2022 9: 01 AM CDT documented as of this encounter Plan of Treatment Not on file documented as of this encounter Visit Diagnoses Not on filedocumented in this encounter Care Teams Social Director Relationship Specialty Start Date End Date Elsewhere, Pcp PCP - General Internal Medicine 01/12/25 documented as of this encounter
--- OUTSIDE RECORDS SUMMARY | 2025-08-16 06:42 | XMS_ITS | Encounter Summary ---
Author Organization [facility] Address [address] [place] [address] Care Team Providers Care Counseling Services Manager Name Role Phone Elsewhere, Pcp Primary Care Provider Unavailabl e Encounter Details Date Type Department Care Team (Latest Contact Info) Description 08/16/2025 7:42 AM CDT - 08/16/2025 11:59 PM CDT Hospital Encounter [facility] [place], [place] [address] [place] [address] Lonnie Alas M.D. 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 I have a [facility] place to live 03/14/2025 Education Answer Date Recorded What is the highest level of school you have completed or the highest degree you have received? Master's degree (e.g., MA, MS, Jacob, MEd, LAW FIRM RECEPTIONIST, JULIA) 03/21/2022 Sex and Gender Information Value Date Recorded Sex Assigned at Male 03/18/2022 9:01 AM CDT Legal Sex Male 1:04 PM CDT Gender Identity Male 03/18/2022 9:01 AM CDT Sexual Orientation Straight 03/18/2022 9: 01 AM CDT documented as of this encounter Medications at Time of Discharge amLODIPine (Norvasc) 5 mg tablet Take 5 mg by mouth daily. 08/15/2025 carboxymethylcel lulose (REFRESH TEARS) 0.5 % ophthalmic solution Administer 1 drop into both eyes 3 (three) times a day as needed for dry eyes. cyclosporine-cho ndroit sulf A (cycloSPORINE in [place]) 0.1-0.25 % drops Administer 1 drop into both eyes 2 (two) times a day. 10/09/2020 donepeziL (Aricept) 10 mg tablet Take 1 tablet (10 mg total) by mouth daily. 90 tablet 3 11/23/2024 hydroCHLOROthiaz cailin (HYDRODIURIL) 25 mg tablet Take 25 mg by mouth daily. 01/24/2022 latanoprost (XALATAN) 0.005 % ophthalmic solution INSTILL ONE DROP INTO EACH EYE ONCE DAILY AFTER SUPPER 02/26/2022 lisinopriL 10 mg tablet Take 10 mg by mouth daily. 03/21/2025 omeprazole (PriLOSEC) [address] capsule TAKE 1 CAPSULE BY MOUTH EVERY MORNING BEFORE BREAKFAST 90 capsule 11 07/01/2023 sertraline (Zoloft) 25 mg tablet Take 25 mg by mouth every morning. 06/13/2025 timolol (TIMOPTIC) 0.5 % ophthalmic solution Administer 1 drop into both eyes daily. 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) C1 ESTERASE (C1ES) INHIBITOR AG, S Routine 08/16/2025 7:58 AM CDT 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) C1 ESTERASE INHIBITOR, FUNCTIONAL ASSAY, S Routine 08/16/2025 7:58 AM CDT 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) COMPL, TOT, S Routine 08/16/2025 7:57 AM CDT 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) COMPLEMENT C4, S Routine 08/16/2025 7:57 AM CDT 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) C-REACTIVE PROTEIN (CRP), S/P Routine 08/16/2025 7:57 AM CDT 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) ASPARTATE AMINOTRANSFERASE (AST), S/P Routine 08/16/2025 7:57 AM CDT 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 LAB BLOOD ADD-ON Final Re sult [facility] [address] [place] [address], [facility] DTL [facility] [address] [place] [address] * (ABNORMAL) CBC with Differential, Blood (08/16/2025 7:59 AM CDT) Hemoglobin 16.1 13.2 - 16.6 g/dL 08/16/2025 9:57 AM CDT DTL Hematocrit 49.8(H) 38.3 - 48.6 % 08/16/2025 9:57 AM CDT DTL Erythrocytes 5.24 4.35 - 5.65 x10(12)/L 08/16/2025 9:57 AM CDT DTL MCV 95.0 78.2 - 97.9 fL 08/16/2025 9:57 AM CDT DTL RBC Distrib Width 13.7 11.8 - 14.5 % 08/16/2025 9:57 AM CDT DTL Platelet Count 272 135 - 317 x10(9)/L 08/16/2025 9:57 AM CDT DTL Leukocytes 6.0 3.4 - 9.6 x10(9)/L 08/16/2025 9:57 AM CDT DTL Neutrophils 4.02 1.56 - 6.45 x10(9)/L 08/16/2025 9:57 AM CDT [facility] Lymphocytes 1.15 0.95 - 3.07 x10(9)/L 08/16/2025 9:57 AM CDT DTL Monocytes 0.58 0.26 - 0.81 x10(9)/L 08/16/2025 9:57 AM CDT DTL Eosinophils 0.20 0.03 - 0.48 x10(9)/L 08/16/2025 9:57 AM CDT DTL Basophils 0.09(H) 0.01 - 0.08 x10(9)/L 08/16/2025 9:57 AM CDT DTL Blood (Blood, Venous) 08/16/2025 7:59 AM CDT 08/16/2025 8:32 AM CDT us Lonnie Alas M.D. LAB BLOOD ADD-ON Final Re sult [facility] [address] [place] [address], [facility] DTL [facility] [address] [place] [address] [facility] [address] [place] [address] * Complement C1q (08/16/2025 7:58 AM CDT) Complement C1q, S 16 12 - 22 mg/dL 08/17/2025 8:03 AM CDT [facility] Comment: ----ADDITIONAL INFORMATION---- This test was developed and its performance characteristics determined by [facility] in a manner consistent with CLIA requirements. This test has not been cleared or approved by the U.S. Food and Drug Administration. Blood (Blood, Venous) 08/16/2025 7:58 AM CDT 08/17/2025 6:47 AM CDT Lonnie Alas M.D. LAB BLOOD ADD-ON Final Re sult Performing Organization Address City/[facility]/ZIP Co de Phone Number [facility] [address] [place] [address] [facility] [address] [place] [address] * C1 Esterase Inhibitor, Functional Assay (08/16/2025 7:58 AM CDT) C1 Esterase Inhib, Functional, S >90 % 08/20/2025 1:06 PM CDT [facility] Comment: ----REFERENCE VALUE---- Normal: >67% Equivocal: 41-67% Abnormal: <41% Blood (Blood, Venous) 08/16/2025 7:58 AM CDT 08/16/2025 10:42 AM CDT us Lonnie Alas M.D. LAB BLOOD NON ADD-ON Marnie l Result Performing Organization Address City/[facility]/ZIP Co de Phone Number [facility] [address] [place] [address] [facility] [address] [place] [address] * C1 Esterase (C1ES) Inhibitor Antigen (08/16/2025 7:58 AM CDT) C1 Esterase Inhibitor Antigen, S 24 19 - 37 mg/dL 08/17/2025 10:50 AM CDT [facility] Blood (Blood, Venous) 08/16/2025 7:58 AM CDT 08/17/2025 8:01 AM CDT us Lonnie Alas M.D. LAB BLOOD NON ADD-ON Marnie l Result [facility] [address] [place] [address] [facility] [address] [place] [address] * CRP (C-Reactive Protein) (08/16/2025 7:57 AM CDT) C-Reactive Protein (CRP), S <3.0 <5.0 mg/L 08/16/2025 9:04 AM CDT DT Blood (Blood, Venous) 08/16/2025 7:57 AM CDT 08/16/2025 8:25 AM CDT us Lonnie Alas M.D. LAB BLOOD ADD-ON Final Re sult Performing Organization Address City/[facility]/ZIP Co de Phone Number [facility] [address] [place] [address], [facility] [address] [place] [address] * Creatinine with Estimated GFR (08/16/2025 7:57 AM CDT) Creatinine 1.13 0.74 - 1.35 mg/dL 08/16/2025 9:04 AM CDT DTL Estimated GFR (eGFR) 64 >=60 mL/min/BSA 08/16/2025 9:04 AM CDT DTL Comment: Estimated GFR calculated using the 2020 CKD_EPI creatinine equation. Blood (Blood, Venous) 08/16/2025 7:57 AM CDT 08/16/2025 8:25 AM CDT us Lonnie Alas M.D. LAB BLOOD ADD-ON Final Re sult [facility] [address] [place] [address], [facility] [address] [place] [address] * AST (Aspartate Aminotransferase) (08/16/2025 7:57 AM CDT) Pathologist [facility] Aspartate Aminotransferase (AST), S 22 8 - 48 U/L 08/16/2025 9:04 AM CDT [facility] Blood (Blood, Venous) 08/16/2025 7:57 AM CDT 08/16/2025 8:25 AM CDT us Lonnie Alas M.D. LAB BLOOD ADD-ON Final Re sult Performing Organization Address City/[facility]/ZIP Co de Phone Number [facility] [address] [place] [address], [facility] [address] [place] [address] * Complement C4 (08/16/2025 7:57 AM CDT) Pathologist [facility] Complement C4, S 19 14 - 40 mg/dL 08/16/2025 2:18 PM CDT [facility] Blood (Blood, Venous) 08/16/2025 7:57 AM CDT 08/16/2025 10:28 AM CDT us Lonnie Alas M.D. LAB BLOOD ADD-ON Final Re sult [facility] [address] [place] [address] [facility] [address] [place] [address] * Complement, Total (08/16/2025 7:57 AM CDT) Complement, Total, S 56 30 - 75 U/mL 08/17/2025 9:36 AM CDT [facility] Blood (Blood, Venous) 08/16/2025 7:57 AM CDT 08/16/2025 11:33 AM CDT Lonnie Alas M.D. LAB BLOOD NON ADD-ON Marnie l Result [facility] [address] [place] [address] [facility] [address] 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
--- OUTSIDE RECORDS SUMMARY | 2025-08-16 08:00 | XMS_ITS | Encounter Summary ---
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 [address] [place] [address] Phone: tel: fax: [facility] Referral ID Status Reason Start Date Expiration Date Visits Re quested Visits Authorized [id number] Closed 08/07/2025 02/06/2027 1 1 Encounter Details Date Type Department Care Team (Latest Contact Info) Description 08/16/2025 9:00 AM CDT Comprehensive Visit Division of Allergic Diseases in [place], [place] [address] [place] [phone] Lonnie Alas M.D. [address] [place] [phone] Robert Pyle M.D. [address] [place] [phone] Angioneurotic (Angioedema Acquired) Edema Subsequent (Primary Dx) Social History Tobacco Use Types Packs/Day Years Used Date Smoking Tobacco: Never Passive Smoke Exposure: Never Smokeless Tobacco: Never Alcohol Use Standard Drinks/Week Comments Not Currently 0 (1 standard drink = 0.6 oz pur e alcohol) very occasional drinker [facility] Utilities Answer Date Recorded In the past 12 months has e [employer], gas, oil, or water [employer] threatened to shut off services in your [...] your living situation today? I have a [facility] place to live 03/14/2025 Education Answer Date Recorded What is the highest level of school you have completed or the highest degree you have received? Master's degree (e.g., MA, MS, Jacob, MEd, ENGINEERING SYSTEMS ANALYST, JULIA) 03/21/2022 Sex and Gender Information Value Date Recorded Sex Assigned at Male 03/18/2022 9:01 AM CDT Legal Sex Male 1:04 PM CDT Gender Identity Male 03/18/2022 9:01 AM CDT Sexual Orientation Straight 03/18/2022 9: 01 AM CDT documented as of this encounter Consult Notes * Roney Hackett M.D. - 08/16/2025 9:00 AM CDT SUBJECTIVE CHIEF COMPLAINT / REASON FOR VISIT Helder Colon is a 85 y.o. male presenting in referral from Lonnie Alas M.D. for consultation in the evaluation of angioedema. HISTORY OF PRESENT ILLNESS 85 yoM with Alzheimer's Dementia on Lecanemab infusions (33 completed) and HTN on lisinopril who was referred by his neurologist Dr. Alas for evaluation of angioedema following lecanemab infusion. On 08/07/2025, patient woke up from sleep with swelling of his throat and difficulty swallowing. Hepresented to the [facility] ER and was given IV diphenhydramine, IV methylprednisone, and IM epinephrine. Within three hours, he felt back to normal and was discharged from the ED. ED evaluation revealed uvula edema on CT. He had an infusion of Lecanemab on 08/02/25 and tolerated this well. He has had 33 total infusions without issue. He has taken lisinopril for 'decades' according to his with out angioedema. He has no personal history of angioedema. He denies allergies to medication. Does not recall any significant outdoor exposures, changes in diet, insect exposures, or sick contacts in proximity to symptoms. According to his , he had allergy shots in his 20s but does not recall the allergens. Patient did not experience nausea, vomiting, or diarrhea. Denies fevers or chills. Denie s urticaria. Denies itchiness. Neurology has discontinued Lecanemab out of concern for recurrent angioedema and would like patient to follow-up in 6 months for MRI. Patient has discontinued lisinopril and now takes amlodipine 5 mg, which he tolerates. Blood pressure has historically been in the 110s systolic with good control. The following portions of the patient's history were reviewed and updated as appropriate: allergies, current medications, family history, medical history, social history, surgical history, and problem list. REVIEW OF SYSTEMS All other systems reviewed and are negative. OBJECTIVE PHYSICAL EXAM General: AAO x3. In no acute distress. 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 Lecanemab and lisinopril have been discontinued since this episode, during which patient was found to have uvula edema on CT in the [facility] ED. Normally has systolic blood pressure in 110s and is tolerating amlodipine 5 mg which was recently prescribed. His amyloid PET CT obtained on 04/17/2025 was nearly negative according to 08/07/2025 neurologist note. Angioedema is an adverse effect of Lecanemab and lisinopril. Given that Lecanemab infusion occurred days prior to symptoms, it is more likely that patient's angioedema was caused by lisinopril. Recommend avoidance of all TRACY inhibitors indefinitely. If Lecanemab is of clinical necessity to the patient, he can return to allergy clinic for graded dosing up to regular dose; this would take place in the span of hours. No need for additional allergy testing at this time. Cosigned by Robert Pyle M.D. at 08/16/2025 5:31 PM CDT Associated attestation - Robert Pyle M.D. - 08/16/2025 5:31 PM CDT I saw and evaluated the patient, participating in the sterling portions of the service. I reviewed the resident/fellow???s note. I agree with the resident/fellow???s findings and plan. 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 Now that he has discontinued lisinopril he should do well. He is also being given a holiday fromLecanemab. documented in this encounter Plan of Treatment Not on file documented as of this encounter Visit Diagnoses Diagnosis Angioneurotic (Angioedema Acquired) Edema Subsequent- Primary documented in this encounter Care Teams Internal Communications Intern Relationship Specialty Start Date End Date Elsewhere, Pcp PCP - General Internal Medicine 01/12/25 documented as of this encounter
--- OUTSIDE RECORDS SUMMARY | 2025-09-09 10:54 | XMS_ITS | Clinical Summary ---
Author Organization [facility] Address [address] [place] [address] Care Team Providers Care Agricultural Education Teacher Name Role Phone Elsewhere, Pcp Primary Care Provider Unavailabl e Source Comments Patient records contain information from all sites at [facility]. For routine questions regarding patient records, call [phone] during business hours, M-F 8:00 AM - 5:00 PM Central Time. Record requests for emergency care only can be directed to [phone] at any time.[facility] Allergies Active Allergy Reactions Criticality Noted Date Comments Alteplase Other (see comments) High 04/26/2025 Patient currently on anti-amyloid therapy (e.g., lecanemab, donanemab). Consider obtaining an urgent brain MRI and Neurology consult to assess for ARIA before giving this medication. Thrombolytic medications increase the risk of intracranial bleeding and even in the setting of anti-amyloid therapy. Lisinopril Other (see comments) 08/15/2025 Possible cause of angioedema of the uvula Pollen Extracts Cough 03/25/2022 Runny nose Tenecteplase [...] 10 mg by mouth daily. 5 Active sertraline (Zoloft) 25 mg tablet Take 25 mg by mouth every morning. 5 Active amLODIPine (Norvasc) 5 mg tablet Take 5 mg by mouth daily. 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 Butterfield, Joseph H, M.D. Angioneurotic (Angioedema Acquired) Edema Subsequent (Primary Dx) 08/16/2025 7:42 AM CDT - 08/16/2025 11:59 PM CDT Hospital Encounter Department of Laboratory Medicine and Pathology, [facility], in [address] [address] Lonnie Alas M.D. 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 08/07/2025 Clinical Communication Department of Neurology in [address] [address] Cecily Steve, STANTON, C.N.P., M.S. Communication (Local ER visit - Patient on Rajesh) 07/26/2025 10:15 AM CDT Infusion Department of Infusion Therapy in [address] [address] Lobito Toscano M.D., Ph.D. 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 Martin, Lori L, R.N. 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 Spaphire Roth R.N. Major Neurocognitive Disorder Due To Alzheimer's Without Behavior Disturbance (HCC) (Primary Dx) from Last 3 Months Family History Medical History Relation Name Comments Prostate cancer Brother 1 Gerry Colon, Reddy Colon, Linwood Colon Father of prostate cancer;one brother of prostate cancer Hypertension Brother 2 Linwood Colon; T om Colon Hypertension Daughter Giovana Johansen Alcohol abuse Father's Brother Selvin Colon Alcohol abuse Mother's Brother Michael Liao Parkinson's disease Paternal Grandmother Natalia Colon Hypertension Sister Syed Leahy; Hypertension Son Steven Colon Relation Name Status Comments Brother 1 Gerry Colon, Reddy Colon, Linwood Carloso n Brother 2 Linwood Colon; Emil Isaiah Daughter Giovana Johansen Father's Brother Selvin Colon [...] oz pur e alcohol) very occasional drinker [facility] Utilities Answer Date Recorded In the past 12 months has e [employer], gas, oil, or water [employer] threatened to shut off services in your [...] your living situation today? I have a [facility] place to live 03/14/2025 Education Answer Date Recorded What is the highest level of school you have completed or the highest degree you have received? Master's degree (e.g., MA, MS, Jacob, MEd, SQUILGEER, JULIA) 03/21/2022 Sex and Gender Information Value [...] Oxygen Saturation 97% 01/12/2025 10: 00 PM SANDER PORTABLE MACHINE Inhaled Oxygen Concentration - - Weight 80.2 kg (176 lb 12.9 oz) 025 10:30 AM CDT Height 177.8 cm (5' 10) 01/12/2025 5:56 PM SANDER PORTABLE MACHINE Body Mass Index 25.37 01/12/2025 5:56 PM SANDER PORTABLE MACHINE Plan of Treatment Health Maintenance Due Date Last Done Comments Office Visit for Blood Pressure Check / Re-check 1940 COVID-19 Vaccine ( season) 2025 05/09/2025, 09/15/2024, 04/11/2024, Additional history exists Potassium Level 01/12/2026 01/12/2025, 030 05/2025, 07/03/2024, Additional history exists Sodium Level 01/12/2026 01/12/2025, 03/0 05/2025, 07/03/2024, Additional history exists Creatinine Level (Kidney Function Test) 08/16/2026 08/16/2025, 01/12/2025, 07/03/2024, Additional history exists DTaP,Tdap,and Td Vaccines (3 - Td or Tdap) 10/04/2033 10/04/2023, 07/08/2012, 06/30/2005 Zoster Vaccines Completed 02/27/2019, 0 03/2019, 09/27/2006 Pneumococcal vaccine (50+ years) Completed 11/12/2022, 08/26/2015, 03/08/2009 RSV vaccine - (32-36 weeks) or 50+ years Completed 10/04/2023 Fall Risk Screen (Annual) Completed 07/26/2025 Influenza Vaccine Completed 08/15/2025, , 10/16/2022, Additional history exists IPV Vaccines Aged Out No longer eligi ble based on patient's age to complete this topic Medical Devices Implanted Type Area Assistant Professor Of Geography Device Identifier Shelf Expiration Date Model / Serial / Lot Ocular Lens-05/22/2025 Implanted:05/08 (Quantity not on file) Ocular Lens Left: Eye Description:Cataract lens in left eye in May 2025. Procedures Procedure Name Priority Date/Time Associated Diagnosis [...] Neurocognitive Disorder Due To Alzheimer's Disease (HCC) VBG & LYTES CG8+, POCT, B STAT 01/12/2025 5:40 PM SANDER PORTABLE MACHINE from Last 3 Months or Most Recently Relevant to Health Maintenance Results * (ABNORMAL) Sedimentation Rate (08/16/2025 7:59 AM CDT) Sedimentation Rate, B 2(L) 3 - 28 mm/h 08/16/2025 10:46 AM CDT DTL Blood (Blood, Venous) 08/16/2025 7:59 AM CDT 08/16/2025 8:32 AM CDT us Lonnie Alas M.D. LAB BLOOD ADD-ON Final Re sult [facility] [address] [place] [address], [facility] DTL [facility] [address] [place] [address] * (ABNORMAL) CBC with Differential, Blood (08/16/2025 7:59 AM CDT) Pathologist [facility] Hemoglobin 16.1 13.2 - 16.6 g/dL 08/16/2025 [...] 7:59 AM CDT 08/16/2025 8:32 AM CDT Lonnie Alas M.D. LAB BLOOD ADD-ON Final Re sult Performing Organization Address City/[facility]/ZIP Co de Phone Number [facility] [address] [place] [address], [facility] [address] [place] [address] [facility]3] [address] [place] [address] * Complement C1q (08/16/2025 7:58 AM CDT) Complement C1q, S 16 12 - 22 mg/dL 08/17/2025 8:03 AM CDT [facility] Comment: ----ADDITIONAL INFORMATION---- This test was developed and its performance characteristics determined by [facility] in a manner consistent with CLIA requirements. This test has not been cleared or approved by the U.S. Food and Drug Administration. Blood (Blood, Venous) 08/16/2025 7:58 AM CDT 08/17/2025 6:47 AM CDT Lonnie Alas M.D. LAB BLOOD ADD-ON Final Re sult [facility] [address] [place] [address] [facility] [address] [place] [address] * C1 Esterase (C1ES) Inhibitor Antigen (08/16/2025 7:58 AM CDT) C1 Esterase Inhibitor Antigen, S 24 19 - 37 mg/dL 08/17/2025 10:50 AM CDT [facility] Blood (Blood, Venous) 08/16/2025 7:58 AM CDT 08/17/2025 8:01 AM CDT Lonnie Alas M.D. LAB BLOOD NON ADD-ON Marnie l Result [facility] [address] [place] [id number] [place] [address] [place] [address] * C1 Esterase Inhibitor, Functional Assay (08/16/2025 7:58 AM CDT) C1 Esterase Inhib, Functional, S >90 % 08/20/2025 1:06 PM CDT [facility] Comment: ----REFERENCE VALUE---- Normal: >67% Equivocal: 41-67% Abnormal: <41% Blood (Blood, Venous) 08/16/2025 7:58 AM CDT 08/16/2025 10:42 AM CDT Lonnie Alas M.D. LAB BLOOD NON ADD-ON Marnie l Result Performing Organization Address [facility] Co de Phone Number [facility] [address] [place] [address] [facility] [address] [place] [address] * Complement, Total (08/16/2025 7:57 AM CDT) Complement, Total, S 56 30 - 75 U/mL 08/17/2025 9:36 AM CDT [facility] Blood (Blood, Venous) 08/16/2025 7:57 AM CDT 08/16/2025 11:33 AM CDT Lonnie Alas M.D. LAB BLOOD NON ADD-ON Marnie l Result Performing Organization Address City/[facility]/ZIP Co de Phone Number [facility] [address] [place] [address] [facility] [address] [place] [address] * Complement C4 (08/16/2025 7:57 AM CDT) Complement C4, S 19 14 - 40 mg/dL 08/16/2025 2:18 PM CDT [facility] Blood (Blood, Venous) 08/16/2025 7:57 AM CDT 08/16/2025 10:28 AM CDT us Lonnie Alas M.D. LAB BLOOD ADD-ON Final Re sult [facility] [address] [place] [address] [facility] [address] [place] [address] * CRP (C-Reactive Protein) (08/16/2025 7:57 AM CDT) C-Reactive Protein (CRP), S <3.0 <5.0 mg/L 08/16/2025 9:04 AM CDT DT Blood (Blood, Venous) 08/16/2025 7:57 AM CDT 08/16/2025 8:25 AM CDT us Lonnie Alas M.D. LAB BLOOD ADD-ON Final Re sult [facility] [address] [place] [address], [facility] [address] [place] [address] * AST (Aspartate Aminotransferase) (08/16/2025 7:57 AM CDT) Aspartate Aminotransferase (AST), S 22 8 - 48 U/L 08/16/2025 9:04 AM CDT DT Blood (Blood, Venous) 08/16/2025 7:57 AM CDT 08/16/2025 8:25 AM CDT us Lonnie Alas M.D. LAB BLOOD ADD-ON Final Re sult Performing Organization Address City/[facility] Co de Phone Number [phone] [place] [address] * Creatinine with Estimated GFR (08/16/2025 7:57 AM CDT) [facility] Creatinine 1.13 0.74 - 1.35 mg/dL 08/16/2025 9:04 AM CDT DT Estimated GFR (eGFR) 64 >=60 mL/min/BSA 08/16/2025 9:04 AM CDT DT Comment: Estimated GFR calculated using the 2020 CKD_EPI creatinine equation. Blood (Blood, Venous) 08/16/2025 7:57 AM CDT 08/16/2025 8:25 AM CDT Lonnie Alas M.D. LAB BLOOD ADD-ON Final Re sult Performing Organization Address City/[facility] Co de Phone Number [address] [address], [address] [address] * (ABNORMAL) Venous Blood Gas and Electrolytes CG8+, POCT (01/12/2025 5:40 PM SANDER PORTABLE MACHINE) [facility] Sample Site, POCT Venstick 01/12/2025 6:14 PM SANDER PORTABLE MACHINE PCLX Comment: ----ADDITIONAL INFORMATION---- Performed at the Point of Care pH, Venous, POCT, B 7.31(L) 7.32 - 7.43 01/12/2025 6:14 PM SANDER PORTABLE MACHINE PCSM Comment: ----ADDITIONAL INFORMATION---- Performed at the Point of Care pCO2, Venous, POCT, B 63(H) 41 - 51 mm Hg 01/12/2025 6:14 PM SANDER PORTABLE MACHINE PCSM Comment: ----ADDITIONAL INFORMATION---- Performed at the Point of Care pO2, Venous, POCT, B <18 Not Applicable mm Hg 01/12/2025 6:14 PM SANDER PORTABLE MACHINE PCSM Comment: ----ADDITIONAL INFORMATION---- Performed at the Point of Care Base Excess, Venous, POCT, B 5 Not Applicable mmol/L 01/12/2025 6:14 PM SANDER PORTABLE MACHINE PCSM Comment: ----ADDITIONAL INFORMATION---- Performed at the Point of Care HCO3, Venous, POCT, B 32 Not Applicable mmol/L 01/12/2025 6:14 PM SANDER PORTABLE MACHINE PCSM Comment: ----ADDITIONAL INFORMATION---- Performed at the Point of Care Sodium, POCT, B 142 135 - 145 mmol/L 01/12/2025 6:14 PM SANDER PORTABLE MACHINE PCLX Comment: ----ADDITIONAL INFORMATION---- Performed at the Point of Care Potassium, POCT, B 4.2 3.6 - 5.2 mmol/L 01/12/2025 6:14 PM SANDER PORTABLE MACHINE PCLX Comment: ----ADDITIONAL INFORMATION---- Performed at the Point of Care Calcium, Ionized, POCT, B 5.00 4.65 - 5.30 mg/dL 01/12/2025 6:14 PM SANDER PORTABLE MACHINE PCLX Comment: ----ADDITIONAL INFORMATION---- Performed at the Point of Care Glucose, POCT, B 93 70 - 140 mg/dL 01/12/2025 6:14 PM SANDER PORTABLE MACHINE PCLX Comment: ----ADDITIONAL INFORMATION---- Performed at the Point of Care Hematocrit, POCT, B 53.0(H) 38.3 - 48.6 % 01/12/2025 6:14 PM SANDER PORTABLE MACHINE PCLX Comment: ----ADDITIONAL INFORMATION---- Performed at the Point of Care Blood (Blood, Venous) 01/12/2025 5:40 PM SANDER PORTABLE MACHINE 01/12/2025 5:40 PM SANDER PORTABLE MACHINE us Josué Syed M.D. LAB POCT ORDERABLES - DEVICE Fin al Result POC [facility] [address] [place] [address], [place] PCLX [facility] POC [address] [place] [address] PCSM [facility] POC [address] [place] [address] from Last 3 Months or Most Recently Relevant to Health Maintenance Insurance [facility] Advance Directives For more information, please contact: [phone] Documents on File Type Date Recorded Patient Lion Tamer Expl anation Advance Directives 08/20/2022 9:02 AM Frances Schultz HCPOA/ADVOCATE/AGENT/R EPRESENTATIVE/SURROGAT E Healthcare Agents on File Name Relationship Healthcare Agent Relationship Communication Frances Colon Spouse Health Care Agent [email or web address] glenn Johansen Child First Alternate Health Care Agent Carmine Colon Child First Alternate Health Care Agent Care Teams Agricultural Education Teacher Relationship Specialty Start Date End Date Elsewhere, Pcp PCP - General Internal Medicine 01/12/25
--- OUTSIDE RECORDS SUMMARY | 2025-09-09 10:54 | XMS_ITS | Encounter Summary ---
Author Organization [facility] Address [address] [place] [address] Care Team Providers Care Patient Care Assistant Name Role Phone Elsewhere, Pcp Primary Care Provider Unavailabl e Reason for Referral * Outpatient (Routine) - Authorized Specialty Diagnoses / Procedures Referred By Contac t Referred To Contact Neurology Lonnie Alas M.D. 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 [address] [place] [phone] Phone: tel: fax: [facility] Referral ID Status Reason Start Date Expiration Date V isits Requested Visits Authorized [id number] Pending Review 08/07/2025 11/07/2026 1 1 Encounter Details Date Type Department Care Team (Late st Contact Info) Description 08/07/2025 Documentation Department of Neurology in [place], [place] [address] [place] [address] Lonnie Alas M.D. [address] [place] [phone] Social History Tobacco Use Types Packs/Day Years Used Date Smoking Tobacco: Never Passive Smoke Exposure: Never Smokeless Tobacco: Never Alcohol Use Standard Drinks/Week Comments Not Currently 0 (1 standard drink = 0.6 oz pur e alcohol) very occasional drinker [facility] Utilities Answer Date Recorded In the past 12 months has [employer], gas, oil, or water [employer] threatened to shut off services in your [...] your living situation today? I have a [facility] place to live 03/14/2025 Education Answer Date Recorded What is the highest level of school you have completed or the highest degree you have received? 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 - 08/07/2025 4:43 PM CDT Neurology miscellaneous note Mr. 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 This morning he awoke with a swollen uvula which was making it difficult for him to swallow. They presented to the emergency department in [place] where he had a CT that did demonstrate some uvula edema. He is on lisinopril. They treated him with 125 mg of IV Solu-Medrol,0.3 mg of intramuscular epinephrine and 25 mg of Benadryl which resulted in significant improvementin his symptoms which are now nearly normal. Overall while there were no known reports of angioedema related to Lecanemab given his amyloid PET scan was nearly negative in April and he has received a few more Lecanemab infusions we will discontinue Lecanemab treatment as the risk of angioedema wouldbe much higher than any incremental benefit he would get from further removal of amyloid at this point in time. We will also send him to allergy clinic to review their thoughts on the issue with pre required labs. He is on lisinopril which could be another potential contributor and I appreciate their assistance. We will plan on re-evaluation with neuropsych testing an MRI scan and clinic visit in 6 months. Allquestions answered. Lonnie Alas M.D. 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
--- OUTSIDE RECORDS SUMMARY | 2025-09-09 10:54 | XMS_ITS | Clinical Summary ---
Author Organization [facility] Address [address] [place] [address] Care Team Providers Care Stereotype Finisher Name Role Phone Christian Sommers MD Unavailable [phone] Camron Schmid Unavailable Unavailable Chiquis Pickett MD Unavailable Richmond Anthony MD Primary Care Provider Allergies Active Allergy Reactions Criticality Noted Date Comments Lisinopril Other - Describe In Comment Field 08/15/2025 Possible cause of angioedema of the uvula Pollen Extracts Cough 03/25/2022 Runny nose Medications latanoprost (XALATAN) 0.005 % ophthalmic solution Place 1 Drop into both eyes at bedtime. 05/29/20 11 Active medication order composer Cyclosporine in Klarity PF Emulsion 0.1% Ophthalmic Instill 1 drop into both eyes twice daily. 0 10/09/20 20 Active timoloL maleate (TIMOPTIC) 0.5 % ophthalmic solution INSTILL 1 DROP IN BOTH EYES DAILY 05/15/20 22 Active hydroCHLOROthiaz cailin 25 mg tabletIndication s:Essential hypertension TAKE 1 TABLET BY MOUTH EVERY DAY 90 Tablet 3 06/16/20 25 Active omeprazole (PRILOSEC) 20 mg Delayed-Release capsuleIndicatio ns:Chronic GERD TAKE 1 CAPSULE BY MOUTH EVERY DAY BEFORE MEALS 90 Capsule 2 06/16/20 25 Active amLODIPine (NORVASC) 5 mg tabletIndication s:Essential hypertension Take 1 Tablet (5 mg) by mouth once daily. 90 Tablet 3 08/15/20 25 Active brimonidine (ALPHAGAN) 0.2 % ophthalmic solution INSTILL 1 DROP IN BOTH EYES DAILY 05/15/20 025 Discontin ued(*Remedios ent states no longer taking) lisinopriL 10 mg tabletIndication s:Essential hypertension Take 1 Tablet (10 mg) by mouth once daily. 90 Tablet 3 03/21/20 25 025 Discontin ued(*Lorne rgic/Adve rse Rxn/Side Effects) Active Problems Problem Noted Date Diagnosed Date [...] Encounters Date Type Department Care Team Description 08/15/2025 1:15 PM CDT Office Visit [facility] [address] [place] [address] Richmond Anthony MD Medicare ANNUAL (subsequent) Visit (85 year old); ER Follow up ([facility], 08/07/2025, swelling in throat ) 08/15/2025 Travel 08/13/2025 Travel 08/07/2025 Orders Only [facility] Scanner 1 scan: (1-Ord) [facility], CT SOFT TISSUE NECK W CON, 08/07/2025 06/14/[address] [facility] [address] [facility] [address] Richmond Anthony MD Refill Request (Hydrochlorothiazide, Omeprazole) from Last 3 Months Immunizations Immunization Administration Dates Next Due COVID-19 VACCINE SPIKEVAX (M ODERNA 50MCG/0.5ML) 12YO+ PFS 05/09/2025,09/15/2024,04/11/2024,08/20 Influenza, High-dose Inactivated 020,09/02/2016,08/26/2015,08/09 Influenza, IIV3 (Age 6-35 mos) 09/02/2010,2008 Influenza, IIV3 (Age >=3 years) 07/20/2013,07/08 Influenza, Inactivated AIIV4 (Age 65+ Years) Preserv Free 08/20/2023,10/16/2022,11/10/2021 Influenza, Inactivated IIV3 (Age 65+ Years) Preserv Free 08/15/2025,10/03/2019,09/14/2018,09/09 Pneumococcal Conj 20-valent (Prevnar 20) 11/12/2022 Pneumococcal [...] Answer Date Recorded PHQ-2 TOTAL SCORE 0 08/15/2025 Social Connections Answer Date Recorded Do you often feel lonely or isolated from those around you? 0 08/14/2025 Alcohol Use Answer Date Recorded How often do you have a drink containing alcohol ? 1 08/15/2025 How many drinks containing a lcohol do you have on a typical day when you are drinking? 0 08/15/2025 How often do you have five or more drinks on one occasion? 0 08/15/2025 Financial Resource Strain Answer Date R ecorded Difficulty of Paying Living Expenses 3 08/14/2025 Difficulty of Paying Living Expenses Not on file 08/14/2025 Food Insecurity Answer Date Recorded Do you worry your food will run out before you are able to buy more? 1 08/14/2025 Transportation Needs Answer Date Record ed Does lack of transportation keep you from medica l appointments? 1 08/14/2025 Does lack of transportation keep you from work, meetings or getting things that you need? 1 08/14/2025 Housing Stability Answer Date Recorded What is your housing situation today? 1 08/14/2025 Utilities Answer Date Recorded Do you have trouble paying f or utilities (for example, heat, electricity, water, phone)? 1 08/14/2025 Sex and Gender Information Value Date Recorded Sex Assigned at Not on file Legal Sex Male 6:24 AM SLATE TRIMMER Gender Identity Not on file Sexual Orientation Not on file Occupation Industry Job Start Date Job End Date Not on file Not on file Not on file Not on file Obstetrics History Last Filed Vital Signs Vital Sign Reading Time Taken Comments Blood Pressure 145/91 08/15/2025 1:28 PM CDT Pulse 61 08/15/2025 1:28 PM CDT Temperature 36.5 C (97.7 F) 10/16/2022 2:47 PM SLATE TRIMMER Respiratory Rate 12 11/23/2019 9:59 AM SLATE TRIMMER Oxygen Saturation 95% 08/15/2025 1:28 PM CDT Inhaled Oxygen Concentration - - Weight 81 kg (178 lb 9.6 oz) 08/15/2025 1:28 PM CDT Height 175.9 cm (5' 9.25) 08/15/2025 1:28 PM CD T Body Mass Index 26.18 08/15/2025 1:28 PM CDT Plan of Treatment Upcoming Encounters Date Type Department Care Team (Late st Contact Info) Description 09/20/2025 2:55 PM SLATE TRIMMER Office Visit [facility] [address] [place] [address] Richmond Anthony MD [address] [place] [address] Health Maintenance Due Date Last Done Comments BMI (ht and wt on same day) for age 18+ 08/15/2026 08/15/2025, 05/09/2025, 07/03/2024, Additional history exists Depression screening for age 12+ 08/15/2026 08/15/2025, 07/03/2024, 11/14/2022, Additional history exists Medicare Wellness for age 65+ 08/16/2026 08/15/2025, 07/03/2024, 11/12/2022, Additional history exists Tetanus booster 10/04/2033 10/04/2023, 06/10, 06/30/2005, Additional history exists Zoster (shingles) series for age 50+ Completed 02/27/2019, 12/13/2018, 09/27/2006 Pneumococcal series for age 50+ Completed 11/12/2022, 08/26/2015, 03/08/2009 RSV vaccine for adults or Completed 10/04/2023 Influenza Vaccine Completed 08/15/2025, , 10/16/2022, Additional history exists Hepatitis B series for 19+ Aged Out N o longer eligible based on patient's age to complete this topic Medical Devices Implanted Type Area Electronic Engineering Technician Device Identifier Shelf Expiration Date Model / Serial / Lot Implnt Porp 2mm Centered Titan [id number] - [id number] Implanted:Qty: 1 on 11/30/2016 by Junito Philip MD at [facility] Left: Ear [employer] 01/19/2026 [id number] / / [id number] Procedures Procedure Name Priority Date/Time Associated Diagnosis Comments PSA TOTAL Routine 08/15/2025 2:10 PM CDT Prostate cancer (HC) BASIC METABOLIC PANEL Routine 08/15/2025 2:10 PM CDT Essential hypertension LIPID PANEL W REFLEX MEASURED LDL Routine 08/15/2025 2:10 PM CDT Hyperlipidemia, unspecified hyperlipidemia type SCAN-CT INTERPRETATION 12:00 AM CDT from Last 3 Months Results * (ABNORMAL) LIPID PANEL W REFLEX MEASURED LDL (08/15/2025 2:10 PM CDT) CHOLESTEROL, TOTAL 207(H) <200 mg/dL 08/16/2025 7:15 AM CDT [facility] TRIGLYCERIDES 170(H) <150 mg/dL 08/16/2025 7:15 AM CDT [facility] HDL CHOLESTEROL 59 > OR = 40 mg/dL 08/16/2025 7:15 AM CDT [facility] NON HDL CHOLESTEROL 148(H) <130 mg/dL (calc) 08/16/2025 7:15 AM CDT [facility] Comment: For patients with diabetes plus 1 major ASCVD risk factor, treating to a non-HDL-C goal of <100 mg/dL (LDL-C of <70 mg/dL) is considered a therapeutic option. CHOL/HDLC RATIO 3.5 <5.0 (calc) 08/16/2025 7:15 AM CDT [facility] LDL-CHOLESTEROL 119(H) mg/dL (calc) 08/16/2025 7:15 AM CDT [facility] Comment: Reference range: <100 Desirable range <100 mg/dL for primary prevention; <70 mg/dL for patients with CHD or diabetic patients with > or = 2 CHD risk factors. LDL-C is now calculated using the Ada calculation, which is a validated novel method providing better accuracy than the Friedewald equation in the estimation of LDL-C. Christian FOX et al. LYRIC. 2013;310(19): 5966-5342 (http://education.XOG.[employer]/faq/LAH837) Blood BLOOD SPECIMEN / Unknown [facility] / Unknown 08/15/2025 2:10 PM CDT 08/15/2025 2:10 PM CDT Richmond Anthony MD CHEMISTRY Final Result Performing Organization Address [facility]/ZIP Co de Phone Number [facility] [address] [address], [place] [phone] * PSA TOTAL (08/15/2025 2:10 PM CDT) PSA, TOTAL 0.10 < OR = 4.00 ng/mL 08/16/2025 5:55 AM CDT [facility] Comment: The total PSA value from this assay system is standardized against the WHO standard. The test result will be approximately 20% lower when compared to the equimolar-standardized total PSA (Justin Marvel). Comparison of serial PSA results should be interpreted with this fact in mind. This test was performed using the Siemens chemiluminescent method. Values obtained from different assay methods cannot be used interchangeably. PSA levels, regardless of value, should not be interpreted as absolute evidence of the presence or absence of disease. Blood BLOOD SPECIMEN / Unknown [facility] / Unknown 08/15/2025 2:10 PM CDT 08/15/2025 2:10 PM CDT Richmond Anthony MD CHEMISTRY Final Result Performing Organization Address [facility]/ZIP Co de Phone Number [facility] [address] [address], [place] [phone] * (ABNORMAL) BASIC METABOLIC PANEL (08/15/2025 2:10 PM CDT) SODIUM 140 135 - 146 mmol/L 08/16/2025 7:15 AM CDT [facility] POTASSIUM 4.1 3.5 - 5.3 mmol/L 08/16/2025 7:15 AM CDT [facility] CARBON DIOXIDE 28 20 - 32 mmol/L 08/16/2025 7:15 AM CDT [facility] GLUCOSE 106(H) 65 - 99 mg/dL 08/16/2025 7:15 AM CDT [facility] Comment: Fasting reference interval For someone without known diabetes, a glucose value between 100 and 125 mg/dL is consistent with prediabetes and should be confirmed with a follow-up test. CALCIUM 9.4 8.6 - 10.3 mg/dL 08/16/2025 7:15 AM CDT [facility] CREATININE 1.12 0.70 - 1.22 mg/dL 08/16/2025 7:15 AM CDT [facility] BUN/CREATININE RATIO 23(H) 6 - 22 (calc) 08/16/2025 7:15 AM CDT [facility] EGFR 65 > OR = 60 mL/min/1.7 3m2 08/16/2025 7:15 AM CDT [facility] UREA NITROGEN (BUN) 26(H) 7 - 25 mg/dL 08/16/2025 7:15 AM CDT [facility] ELECTROLYTE BALANCE 8 7 - 17 mmol/L (calc) 08/16/2025 7:15 AM CDT [facility] CHLORIDE 104 98 - 110 mmol/L 08/16/2025 7:15 AM CDT [facility] Blood BLOOD SPECIMEN / Unknown [facility] / Unknown 08/15/2025 2:10 PM CDT 08/15/2025 2:10 PM CDT Richmond Anthony MD CHEMISTRY Final Result [facility] [address] [place] [address], * SCAN-CT INTERPRETATION (08/07/2025 12:00 AM CDT) Anatomical Region Laterality Modality Other us Scanner OTHER Final Result from Last 3 Months Insurance MEDICARE PART B HB ONLY BLUE CROSS MEDICARE ADVANTAGE MR MEDICARE PART A HB ONLY Advance Directives * Full Code (Latest Code Status on File) Date Activated Date Inactivated Comments 11/30/2016 6:44 AM 11/30/2016 2:05 PM Care Teams Stereotype Finisher Relationship Specialty Start Date End Date Richmond Anthony MD [address] [place] [address] PCP - General Family Practice 11/10/21 Christian Sommers MD [address] [place] [address] Gastroenterology 07/20/13 Camron Schmid Hotel Engineer 07/20/13 Chiquis Pickett MD Ophthalmology Surgery 07/20/13
--- OUTSIDE RECORDS SUMMARY | 2025-09-09 10:54 | XMS_ITS | Encounter Summary ---
Author Organization [facility] Address [address] [place] [address] Care Team Providers Care Material Planner Name Role Phone Elsewhere, Pcp Primary Care Provider Unavailabl e Reason for Referral * Outpatient (Routine) - Closed Specialty Diagnoses / Procedures Referred By Ting mendes Referred To Contact Allergy and Immunology Diagnoses 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) Lonnie Alas M.D. [address] [place] [address] Phone: tel: fax: [facility] Referral ID Status Reason Start Date Expiration Date Visits Re quested Visits Authorized [id number] Closed 08/07/2025 02/06/2027 1 1 Reason for Visit * Reason Onset Date Comments Communication 08/07/2025 Local ER visit - Patient on [facility] Encounter Details Date Type Department Care Team (Latest Contact Info) Description 08/07/2025 Clinical Communication Department of Neurology in [place], [place] [address] [place] [address] Cecily Steve, STANTON, C.N.P., M.S. [address] [place] [address] Communication (Local ER visit - Patient on [facility]) Social History Tobacco Use Types Packs/Day Years Used Date Smoking Tobacco: Never Passive Smoke Exposure: Never Smokeless Tobacco: Never Alcohol Use Standard Drinks/Week Comments Not Currently 0 (1 standard drink = 0.6 oz pur e alcohol) very occasional drinker [facility] Utilities Answer Date Recorded In the past 12 months has e [employer], gas, oil, or water [employer] threatened to shut off services in your [...] your living situation today? I have a [facility] place to live 03/14/2025 Education Answer Date Recorded What is the highest level of school you have completed or the highest degree you have received? Master's degree (e.g., MA, MS, Jacob, MEd, RESEARCH MANAGER, JULIA) 03/21/2022 Sex and Gender Information Value Date Recorded Sex Assigned at Male 03/18/2022 9:01 AM CDT Legal Sex Male 1:04 PM CDT Gender Identity Male 03/18/2022 9:01 AM CDT Sexual Orientation Straight 03/18/2022 9: 01 AM CDT documented as of this encounter Miscellaneous Notes * Telephone Encounter - Rosario Moore R.N. - 08/07/2025 1:14 PM CDT SUBJECTIVE CHIEF COMPLAINT / REASON FOR CALL Communication (Local ER visit - Patient on [facility]) Information Discussed Mr. Colon complained of having trouble swallowing when he woke this morning. They went to see a family member who is a local doctor. She saw that his uvula was swollen and [facility]. He was treated with IV steroids, benadryl, and epinephrine. They also did a head and neckCT. He was released after treatment and improvement of symptoms. He is home now and sleeping. He ate lunch without difficulties. Mrs. Colon denies any cold or allergy symptoms, or any other illness.He does not have his tonsils. Mr. Colon is due for his next Lecanemab infusion on 08/09. I told Mrs. Colon I would let our covering provider, Dr. Alas, know about the situation. I told her I would call her back tomorrow to let her know if there any recommendations and to make sure Mr. Colon continued to feel better. We discussed a call back time of 1 pm. PLAN Disposition/Recommendation: recommended continue engagement in self-management activities Information/Education: patient/caller able to teach back Caller agreeable to plan of care: yes The following references were used: nursing clinical judgement documented in this encounter Plan of Treatment Scheduled Referrals Name Type Priority Associated Diagnoses Orde r Schedule Allergy and Immunology - Urticaria angioedema consult (clinic) Outpatient Referral Routine 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) Expected: 08/07/2025, Expires: 11/06/2026 documented as of this encounter Results * (ABNORMAL) Sedimentation Rate (08/16/2025 7:59 AM CDT) Pathologist [facility] Sedimentation Rate, B 2(L) 3 - 28 mm/h 08/16/2025 10:46 AM CDT DTL Blood (Blood, Venous) 08/16/2025 7:59 AM CDT 08/16/2025 8:32 AM CDT us Lonnie Alas M.D. LAB BLOOD ADD-ON Final Re sult [facility] [address] [place] [address], [facility] [address] [place] [address] * (ABNORMAL) CBC with Differential, Blood (08/16/2025 7:59 AM CDT) [facility] Hemoglobin 16.1 13.2 - 16.6 g/dL 08/16/2025 [...] ADD-ON Final Re sult Performing Organization Address City/[facility] Co de Phone Number [facility] [address] [place] [address], [facility] DTL [facility] [address] [place] [address] DHPM [facility] [address] [place] [address] * Complement C1q (08/16/2025 7:58 AM CDT) Complement C1q, S 16 12 - 22 mg/dL 08/17/2025 8:03 AM CDT [facility] Comment: ----ADDITIONAL INFORMATION---- This test was developed and its performance characteristics determined by [facility] in a manner consistent with CLIA requirements. This test has not been cleared or approved by the U.S. Food and Drug Administration. Blood (Blood, Venous) 08/16/2025 7:58 AM CDT 08/17/2025 6:47 AM CDT Lonnie Alas M.D. LAB BLOOD ADD-ON Final Re sult Performing Organization Address City/[facility]/ZIP Co de Phone Number [facility] [address] [place] [address] [facility] [address] [place] [address] * C1 Esterase Inhibitor, Functional Assay (08/16/2025 7:58 AM CDT) C1 Esterase Inhib, Functional, S >90 % 08/20/2025 1:06 PM CDT [facility] Comment: ----REFERENCE VALUE---- Normal: >67% Equivocal: 41-67% Abnormal: <41% Blood (Blood, Venous) 08/16/2025 7:58 AM CDT 08/16/2025 10:42 AM CDT Lonnie Alas M.D. LAB BLOOD NON ADD-ON Marnie l Result [facility] [address] [place], [place] [id number] [place] [address] [place] [address] * C1 Esterase (C1ES) Inhibitor Antigen (08/16/2025 7:58 AM CDT) Pathologist [facility] C1 Esterase Inhibitor Antigen, S 24 19 - 37 mg/dL 08/17/2025 10:50 AM CDT [facility] Blood (Blood, Venous) 08/16/2025 7:58 AM CDT 08/17/2025 8:01 AM CDT Lonnie Alas M.D. LAB BLOOD NON ADD-ON Marnie l Result [facility] [address] [place] [address] [facility] [address] [place] [address] * CRP (C-Reactive Protein) (08/16/2025 7:57 AM CDT) Pathologist [facility] C-Reactive Protein (CRP), S <3.0 <5.0 mg/L 08/16/2025 9:04 AM CDT DT Blood (Blood, Venous) 08/16/2025 7:57 AM CDT 08/16/2025 8:25 AM CDT us Lonnie Alas M.D. LAB BLOOD ADD-ON Final Re sult [facility] [address] [place] [address] * Creatinine with Estimated GFR (08/16/2025 7:57 [...] ADD-ON Final Re sult Performing Organization Address City/[facility]/ZIP Co de Phone Number [facility] [address] [place], [place] [address] [place] [address] [address] [place] [address] * AST (Aspartate Aminotransferase) (08/16/2025 7:57 AM CDT) Aspartate Aminotransferase (AST), S 22 8 - 48 U/L 08/16/2025 9:04 AM CDT DTL Blood (Blood, Venous) 08/16/2025 7:57 AM CDT 08/16/2025 8:25 AM CDT us Lonnie Alas M.D. LAB BLOOD ADD-ON Final Re sult [facility] [address] [place], [place] [address] [place] [address] [address] [place] [address] * Complement C4 (08/16/2025 7:57 AM CDT) Complement C4, S 19 14 - 40 mg/dL 08/16/2025 2:18 PM CDT [facility] Blood (Blood, Venous) 08/16/2025 7:57 AM CDT 08/16/2025 10:28 AM CDT us Lonnie Alas M.D. LAB BLOOD ADD-ON Final Re sult [facility] [address] [place] [address] [facility] [address] [place] [address] * Complement, Total (08/16/2025 7:57 AM CDT) Complement, Total, S 56 30 - 75 U/mL 08/17/2025 9:36 AM CDT [facility] Blood (Blood, Venous) 08/16/2025 7:57 AM CDT 08/16/2025 11:33 AM CDT us Lonnie Alas M.D. LAB BLOOD NON ADD-ON Marnie l Result Performing Organization Address City/[facility]/ZIP Co de Phone Number [facility] [address] [place] [address] [facility] [address] [place] [address] documented in this encounter Visit Diagnoses Diagnosis Angioneurotic (Angioedema Acquired) Edema Subsequent- Primary Mild Neurocognitive Disorder Due To Alzheimer's Disease (HCC) documented in this encounter Care Teams Material Planner Relationship Specialty Start Date End Date Elsewhere, Pcp PCP - General Internal Medicine 01/12/25 documented as of this encounter
[2025-09-09 11:05] VITALS: BP 146/83; PULSE 64; RESP 18; TEMP 36.4; O2SAT 97
--- NOTE | 2025-09-09 11:29 | CRLHL7_ITS ---
For Patients: As a result of the Century Cures Act, medical imaging exams and procedure reports are released immediately into your electronic medical record. You may view this report before your referring provider. If you have questions, please contact your health care provider. Indication: Pain Technique: Left knee, 3 views. Comparison: None. Findings/Impression: There is no acute fracture or malalignment. A small joint effusion is present. Minimal tricompartmental osteoarthrosis. Soft tissue fullness along the anterior distal thigh. Dictated by Yaritza Justice MD @ 09/09/2025 12:03:05 PM (Electronically Signed)
--- NOTE | 2025-09-09 11:30 | CRLHL7_ITS ---
For Patients: As a result of the Century Cures Act, medical imaging exams and procedure reports are released immediately into your electronic medical record. You may view this report before your referring provider. If you have questions, please contact your health care provider. INDICATION: Leg pain TECHNIQUE: Ultrasound venous duplex lower left extremity. Compression venous exam was performed using mcdaniel-scale, color Doppler, and spectral Doppler analysis. COMPARISON: None. FINDINGS: Deep veins: Sonographic imaging demonstrates the left common femoral, deep femoral, superficial femoral, popliteal, posterior tibial and the contralateral right common femoral veins to be fully compressible with normal color Doppler blood flow. Superficial veins: Greater saphenous vein is fully compressible. No popliteal cyst. IMPRESSION: Normal left lower extremity venous ultrasound. No sign of deep venous thrombosis. Dictated by Yaritza Justice MD @ 09/09/2025 12:45:26 PM (Electronically Signed)
--- NOTE | 2025-09-09 11:39 | ED.GENADULT ---
HPI - General Adult General Chief complaint: Extremity Pain/Injury, Lower Stated complaint: Unable to walk on left leg Time Seen by Provider: 09/09/25 11:13 Source: patient and family Mode of arrival: ambulatory Limitations: no limitations History of Present Illness HPI narrative: 85-year-old male, history of Alzheimer's, presents today with left leg pain. Patient states he was in his usual state of health this morning. He went and got male. He came back in the house sat down and when he went to stand up sometime later, he states that he had pain around the knee and distal to the knee to the point where he could not walk. He states that he was afraid to even move his leg because he thought that he would fall. He denies any trauma. He states that he has been unable to walk without assistance since this abruptly came on. He denies systemic symptoms. History is somewhat difficult to obtain. His family including his and daughter state that he was pointing to his lower leg earlier today when this 1st started. Related Data Home Medications ?Medication ?Instructions ?Recorded ?Confirmed hydrochlorothiazide 25 mg tablet 25 mg PO DAILY 10/09/22 09/09/25 latanoprost 0.005 % eye drops 1 drp ophthalmic (eye) QPM 10/09/22 09/09/25 omeprazole 20 mg capsule,delayed 20 mg PO DAILY 10/09/22 09/09/25 release timolol maleate 0.5 % eye drops 1 drp ophthalmic (eye) DAILY 10/09/22 09/09/25 amlodipine 5 mg tablet 5 mg PO DAILY 09/09/25 09/09/25 Allergies Allergy/AdvReac Type Severity Reaction Status Date / Time lisinopril Allergy Severe Verified 09/09/25 11:12 Review of Systems Status of ROS: Reports: 6 or more systems reviewed and unremarkable except as noted in History and below [facility] Medical History Cervical spine arthritis ?M47.812 - Spondylosis without myelopathy or radiculopathy, cervical region (ICD-10) Dehydration ?E86.0 - Dehydration (ICD-10) Poor balance ?R26.89 - Other abnormalities of gait and mobility (ICD-10) Closed head injury ?S09.90XA - Unspecified injury of head, initial encounter (ICD-10) Left bundle branch block ?I44.7 - Left bundle-branch block, unspecified (ICD-10) Conductive hearing loss ?H90.2 - Conductive hearing loss, unspecified (ICD-10) Cataracts, bilateral ?H26.9 - Unspecified cataract (ICD-10) Glaucoma ?H40.9 - Unspecified glaucoma (ICD-10) Macular degeneration ?H35.30 - Unspecified macular degeneration (ICD-10) Hypertension ?I10 - Essential (primary) hypertension (ICD-10) Prostate cancer ?C61 - Malignant neoplasm of prostate (ICD-10) Surgical History History of tonsillectomy ?Z90.89 - Acquired absence of other organs (ICD-10) H/O mastoidectomy ?Z90.89 - Acquired absence of other organs (ICD-10) Status post removal of Zenker's diverticulum ?Z98.890 - Other specified postprocedural states (ICD-10) ?Z87.19 - Personal history of other diseases of the digestive system (ICD-10) History of esophagogastroduodenoscopy (EGD) ?Z98.890 - Other specified postprocedural states (ICD-10) History of colonoscopy ?Z98.890 - Other specified postprocedural states (ICD-10) H/O prostatectomy ?Z90.79 - Acquired absence of other genital organ(s) (ICD-10) Family History Brother Prostate cancer Father Prostate cancer Mother Diabetes Social History Narrative: Patient lives with his in [place]. His live independently. 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 He does not smoke. He rarely drinks alcohol. Code status is DNR. He does not use a walker or cane with ambulation. What is your current living situation?: I presently have a place to live Problems where you live: no known problems Problems where you live details: denies problems In the past 12 months, utilities in danger of being shut off: no In past 12 months, lack of transportation kept you from medical appts, meetings, work, or getting things needed for daily living: no In the past 12 mos, have been you worried that your food would run out before you had money to buy more?: never true In the past 12 mos, the food you bought just didn't last and you didn't have money to buy more?: never true Highest level of school completed/degree received: Master's degree Smoking Status: Never smoker Second hand tobacco smoke exposure: No How often do you have a drink containing alcohol: monthly or less Alcohol type details: one glass of wine every 5 months or so, very rarely socially AUDIT-C Alcohol total score: 1 Non-prescribed substance use: denies use Caffeine: Yes (coca cola) How often does anyone, including family, friends and others, physically hurt you: never How often does anyone, including family, friends and others, insult or talk down to you: never How often does anyone, including family, friends and others, threaten you with harm: never How often does anyone, including family, friends and others, scream or curse at you: never service: No Exam Narrative: Exam Narrative: Well-nourished well-developed patient in no acute distress. Answers questions appropriately. Patient speaks in full sentences without needing to catch his breath. Patient does not appear ill or toxic. HEENT: Normocephalic atraumatic. Extraocular muscles are intact. Conjunctivae are moist without any icterus noted. Moist mucous membranes. Extremities: Normal appearance. Patient has what appears to be a lipoma over the proximal kneecap that is nontender. There is no joint effusion. There is no erythema or skin changes over the entire extremity. There is no edema. When he lays down patient can flex at the hip and knee without difficulty. He has full range of motion both passive and active at the knee, he states this causes him a little bit of discomfort. He denies discomfort at the hip joint. There is no pain with full range of motion at the ankle. There is minimal discomfort with compression of the patella, minimal discomfort at both lateral and medial joint lines. Exam is fairly unremarkable. Const: Vital Signs, click to edit/add: Vital Signs - 24 hr 09/09/25 11:05 09/09/25 13:13 Temperature 97.5 F L 97.5 F L Pulse Rate [Right Pulse Oximeter] 64 50 L Respiratory Rate 18 18 Blood Pressure [Ri ght Upper Arm] 146/83 H 131/98 H Pulse Oximetry 97 95 Oxygen Delivery Me thod Room Air Course Course ED Course: Ultrasound of the lower extremity does not show any evidence of DVT which is something the family was quite concerned about. X-ray of the knee shows a small joint effusion and some soft tissue fullness along the anterior distal thigh. Given the patient's complex medical history and Alzheimer's it is difficult to really pin down his symptoms. Therefore discussed with family doing a CT scan of the knee to rule out any infection, abscess formation of the thigh or hemarthrosis. They wish to proceed with this. CT of the knee showed the same anterior thigh soft tissue swelling but no fluid collection. Does show a very small joint effusion and a small popliteal cyst. No other significant abnormalities. Discussed this with the family who were relieved. They state that they do have a dixie coming visit who is going to drop off a wheelchair for Helder to use. He was able to ambulate here with minimal assistance. Vital Signs Vital signs: Initial Vital Signs Temperature 97.5 F L 09/09/25 11:05 Temperature Source Temporal Artery Scan 09/09/25 11:05 Pulse Rate 64 09/09/25 11:05 Pulse Rhythm Regular 09/09/25 11:05 Pulse Strength 3+ Normal 09/09/25 11:05 Respiratory Rate 18 09/09/25 11:05 Blood Pressure 146/83 H 09/09/25 11:05 Blood Pressure Mean 104 09/09/25 11:05 Blood Pressure Position Sitting 09/09/25 11:05 Pulse Oximetry 97 09/09/25 11:05 Oxygen Delivery Method Room Air 09/09/25 11:05 Vital Signs Temperature 97.5 F L 09/09/25 11:05 Pulse Rate 64 09/09/25 11:05 Respiratory Rate 18 09/09/25 11:05 Blood Pressure 146/83 H 09/09/25 11:05 Pulse Oximetry 97 09/09/25 11:05 Oxygen Delivery Method Room Air 09/09/25 11:05 Temperature 97.5 F L 09/09/25 13:13 Pulse Rate 50 L 09/09/25 13:13 Respiratory Rate 18 09/09/25 13:13 Blood Pressure 131/98 H 09/09/25 13:13 Pulse Oximetry 95 09/09/25 13:13 Oxygen Delivery Method Room Air 09/09/25 11:05 Medical Decision Making MDM Narrative Medical decision making narrative: 85-year-old male with knee pain of unclear etiology. Could be due to the popliteal cyst. We discussed symptomatic treatment with Tylenol. Follow-up with primary care as needed. Lab Data Labs: Lab Results 09/09/25 Range/Units 13:08 POC Creatinine 1.1 (0.6-1.3) mg/dl Imaging Data Venous US: Attestation: I have reviewed the pertinent imaging results. Radiologist's impression: TECHNIQUE: Ultrasound venous duplex lower left extremity. Compression venous exam was performed using mcdaniel-scale, color Doppler, and spectral Doppler analysis. COMPARISON: None. FINDINGS: Deep veins: Sonographic imaging demonstrates the left common femoral, deep femoral, superficial femoral, popliteal, posterior tibial and the contralateral right common femoral veins to be fully compressible with normal color Doppler blood flow. Superficial veins: Greater saphenous vein is fully compressible. No popliteal cyst. IMPRESSION: Normal left lower extremity venous ultrasound. No sign of deep venous thrombosis. X-ray knee: Attestation: I have reviewed the pertinent imaging results. Radiologist's impression: Technique: Left knee, 3 views. Comparison: None. Findings/Impression: There is no acute fracture or malalignment. A small joint effusion is present. Minimal tricompartmental osteoarthrosis. Soft tissue fullness along the anterior distal thigh. CT- Other: Attestation: I have reviewed the pertinent imaging results. Radiologist's impression: TECHNIQUE: CT left knee with 85 cc Isovue 370 intravenous contrast. COMPARISON: Same-day left knee radiographs. FINDINGS: There is no acute fracture or malalignment. Minimal marginal osteophytosis most pronounced in the patellofemoral compartment. Tiny suprapatellar enthesophyte. The bones appear demineralized. Small joint effusion. Small popliteal cyst. Mild predominantly infrapatellar anterior soft tissue swelling without fluid collection. Ovoid, circumscribed fat density within the subcutaneous tissues along the anterior aspect of the distal femur measuring 3.1 x 1.7 x 2.5 centimeters likely reflecting lipoma (series 4, image 51, series 6, image 30). IMPRESSION: 1. No acute osseous abnormality of the left knee. 2. Probable small subcutaneous lipoma along the anterior aspect of the distal thigh measuring up to 3.1 centimeters in size. 3. Mild anterior soft tissue swelling. No fluid collection. Discharge Plan Discharge Clinical Impression: Acute knee pain, Popliteal cyst Patient Disposition: Home, Self-Care Condition: Stable Instructions: Bah Cyst (ED) Additional Instructions: Follow-up with primary care as needed. Prescriptions: No Action latanoprost 0.005 % drops 1 drp ophthalmic (eye) QPM Patient Comments: BOTH EYES omeprazole 20 mg capsule,delayed release(DR/EC) 20 mg PO DAILY Patient Comments: hydrochlorothiazide 25 mg tablet 25 mg PO DAILY Patient Comments: timolol maleate 0.5 % drops 1 drp ophthalmic (eye) DAILY Patient Comments: BOTH EYES amlodipine 5 mg tablet 5 mg PO DAILY Follow Up/Referrals: Richmond Anthony MD [Primary Care Provider, Family Practice] Stand Alone Forms: Secure-24 Info Instructions
--- NOTE | 2025-09-09 12:52 | CRLHL7_ITS ---
For Patients: As a result of the Century Cures Act, medical imaging exams and procedure reports are released immediately into your electronic medical record. You may view this report before your referring provider. If you have questions, please contact your health care provider. INDICATION: Pain TECHNIQUE: CT left knee with 85 cc Isovue 370 intravenous contrast. COMPARISON: Same-day left knee radiographs. FINDINGS: There is no acute fracture or malalignment. Minimal marginal osteophytosis most pronounced in the patellofemoral compartment. Tiny suprapatellar enthesophyte. The bones appear demineralized. Small joint effusion. Small popliteal cyst. Mild predominantly infrapatellar anterior soft tissue swelling without fluid collection. Ovoid, circumscribed fat density within the subcutaneous tissues along the anterior aspect of the distal femur measuring 3.1 x 1.7 x 2.5 centimeters likely reflecting lipoma (series 4, image 51, series 6, image 30). IMPRESSION: 1. No acute osseous abnormality of the left knee. 2. Probable small subcutaneous lipoma along the anterior aspect of the distal thigh measuring up to 3.1 centimeters in size. 3. Mild anterior soft tissue swelling. No fluid collection. Please note that all CT scans at this facility use dose modulation, iterative reconstruction, and/or weight-based dosing when appropriate to reduce radiation dose to as low as reasonably achievable. Dictated by Yaritza Justice MD @ 09/09/2025 2:08:16 PM (Electronically Signed)
[2025-09-09 13:13] VITALS: BP 131/98; PULSE 50; RESP 18; TEMP 36.4; O2SAT 95
[2025-09-09 13:17] LABS: Creatinine, Point-of-Care* 1.1 mg/dl (0.6-1.3)
--- NOTE | 2025-09-09 14:26 | PC.NURSE ---
pt was able to stand and take a few steps and transfer to , has a friend bringing to house for patient
== END 2025-09-09 14:32 | disposition home or self-care (01) ==
PROVIDERS: Emergency Provider Family Medicine; PCP Family Medicine
DX: M71.22 Synovial cyst of popliteal space [Baker], left knee (principal)
CPT/HCPCS: 36415; 73562; 73701; 82565; 93971; 99284; 99285; Q9967